=== PATIENT | female | born 1965 | race Caucasian/White ===

== ENCOUNTER 2019-12-20 17:04 | Outpatient (REF) | payer OTHER, SELFPAY ==
--- NOTE | 2019-12-20 | MM_ITS ---
EXAMINATION: MM SCREENING DIGITAL BREAST TOMOSYNTHESIS, BILATERAL CLINICAL INFORMATION: Screening. Asymptomatic. The lifetime risk of breast cancer based on the Tyrer-Cuzick Model is 8.0%. COMPARISON: Mammography: None TECHNIQUE: Digital breast tomosynthesis is performed in both the craniocaudal and mediolateral oblique views along with computer-aided detection (CAD). Synthesized 2D images are generated from the tomosynthesis. FINDINGS: The breasts are heterogeneously dense, which may obscure small masses (ACR BI-RADS breast composition Category c). There are no significant masses, abnormal calcifications, or other abnormalities. IMPRESSION: No evidence of malignancy ASSESSMENT: BI-RADS 1: Negative RECOMMENDATION: Routine annual mammography screening. This patient's information was entered into a reminder system with a target due date for their next mammogram.
== END 2019-12-20 17:05 | disposition home or self-care (01) ==
LOC: HO.MAMMO 17:04
PROVIDERS: PCP Internal Medicine; Visit Provider Internal Medicine
DX: Z12.31 Encounter for screening mammogram for malignant neoplasm of breast (principal)
CPT/HCPCS: 77063; 77067

== ENCOUNTER 2019-12-31 13:25 | Outpatient (REF) | payer OTHER, SELFPAY ==
--- NOTE | 2019-12-31 13:33 | XR_ITS ---
EXAMINATION: XR PELVIS CLINICAL INFORMATION: [Pain. COMPARISON: Left hip 10/02/2019 TECHNIQUE: AP view of the pelvis. FINDINGS: There is bilateral loss of joint space with [id number] apposition and subchondral cystic changes of right hip joint. There is minimal sclerosis along the right femoral head. Rest of the pelvis and SI joints are unremarkable. The soft tissues are normal. XR/XR pelvis 1-2V IMPRESSION: Severe right and [id number] left hip joint osteoarthritic changes. No visible acute fracture or dislocation.
== END 2019-12-31 13:26 | disposition home or self-care (01) ==
LOC: HO.XRAY 13:25
PROVIDERS: Visit Provider Orthopaedic Surgery
DX: M16.11 Unilateral primary osteoarthritis, right hip (principal)
CPT/HCPCS: 72170; 99204

== ENCOUNTER 2020-02-18 13:09 | Outpatient (REF) | payer OTHER, SELFPAY ==
--- NOTE | 2020-02-18 14:35 | ECG_ITS ---
Test Reason : PREOP Blood Pressure : / mmHG Vent. Rate : 067 BPM Atrial Rate : 067 BPM P-R Int : 156 ms QRS Dur : 080 ms QT Int : 414 ms P-R-T Axes : 072 015 041 degrees QTc Int : 437 ms Normal sinus rhythm Nonspecific ST and T wave abnormality Abnormal ECG No previous ECGs available Referred By: Myles Ledezma Electronically Signed By:Phil Garcia
[2020-02-18 14:54] LABS: Basophils Absolute Auto 0.1 X10*3/uL (0.0-0.2); Basophils Percent Auto 0.8 % (0-2); Eosinophils Absolute Auto 0.4 X10*3/uL (0.0-0.4); Eosinophils Percent Auto 5.6 % (0-4); Hematocrit 43.3 % (37-47); Hemoglobin 14.6 g/dl (12.0-16.0); Imm Gran Abs Auto 0.03 X10*3/uL (0.00-0.03); Imm Gran Pct Auto 0.5 % (0.0-0.4); Lymphocytes Absolute Auto 1.5 X10*3/uL (1.2-4.9); Lymphocytes Percent Auto 22.9 % (20-40); Mean Corpuscular HGB Conc 33.7 g/dl (31.0-35.0); Mean Corpuscular Hemoglobin 34.1 pg (27.0-33.0); Mean Corpuscular Volume 101.2 fL (80-98); Mean Platelet Volume 10.9 fL (9.4-12.3); Monocytes Absolute Auto 0.4 X10*3/uL (0.1-1.2); Monocytes Percent Auto 5.9 % (2-11); Neutrophils Absolute Auto 4.1 X10*3/uL (2.0-8.3); Neutrophils Percent Auto 64.3 % (45-73); Platelet Count 123 X10*3/uL (160-400); Red Blood Count 4.28 X10*6/uL (4.20-5.50); Red Cell Distribution Width 15.9 % (11.0-16.0); White Blood Count 6.4 X10*3/uL (4.8-10.8)
[2020-02-18 14:56] LABS: MANUAL DIFF FLAG NO
[2020-02-18 15:24] LABS: Anion Gap 13 (12-20); Blood Urea Nitrogen 9 mg/dL (9-16); Calcium 9.3 mg/dL (8.4-10.2); Carbon Dioxide 30 mmol/L (22-29); Chloride 97 mmol/L (96-108); Estimated Glomerular Filt Rate > 60; Glucose Random 92 mg/dL (60-115); Potassium 4.3 mmol/l (3.3-5.1); Sodium 136 mmol/L (135-145)
== END 2020-02-18 13:10 | disposition home or self-care (01) ==
LOC: HO.LAB 13:09
PROVIDERS: PCP Internal Medicine; Visit Provider Orthopaedic Surgery
DX: Z01.810 Encounter for preprocedural cardiovascular examination (principal)
CPT/HCPCS: 36415; 80048; 85025; 93005

== ENCOUNTER 2020-03-13 11:18 | Outpatient (REF) | payer OTHER, SELFPAY ==
--- NOTE | 2020-03-13 11:23 | XR_ITS ---
EXAMINATION: XR CHEST CLINICAL INFORMATION: Cough. COMPARISON: None TECHNIQUE: 2 views of the chest were obtained. FINDINGS: The lungs are well-expanded and clear. The heart size and pulmonary vascularity is normal. There is moderate spondylosis dorsal spine. No lytic process seen. XR/XR chest 2V IMPRESSION: Unremarkable chest exam.
== END 2020-03-13 11:19 | disposition home or self-care (01) ==
LOC: HO.XRAY 11:18
PROVIDERS: Visit Provider Physician Assistant
DX: Z01.818 Encounter for other preprocedural examination (principal); Z01.812 Encounter for preprocedural laboratory examination; R05 Cough; M16.11 Unilateral primary osteoarthritis, right hip
CPT/HCPCS: 71046; 99212

== ENCOUNTER 2020-03-18 | Outpatient (REF) | payer OTHER, SELFPAY ==
--- NOTE | 2020-03-13 09:38 | HO.ANESPROP2 ---
HPI - Anesthesia Eval Consult details Narrative: 54yo F for Right JASWANT Pending: CXR PCP sign off Rescheduled d/t COVID PMFSH Past Medical History Medical History Anxiety Back pain Cough History of panic attacks Nausea Osteoarthritis of right hip Smoker Family History Family History Father No problems noted. Mother No problems noted. Surgical History Surgical History Delivery by section History of Problems with Anesthesia: No (No h/o of GA) Social History Social History Alcohol intake: current Alcohol intake frequency: a few times a week Alcohol type: wine Smoking Status: Current every day smoker Tobacco Type: Cigarette Cigarettes Per Day: 12 Years Smoked: 43 Second Hand Smoke Exposure: Yes Current occupational status: unemployed Current occupation: Right Handed Narrative Narrative: No recent respiratory illness, reports abdominal pain 3 days ago. Resolved with gas x. No fevers, vomitting, or diarrhea. RINCON at baseline. No CP. Activity limited to pain. Meds Allergies Allergy/AdvReac Type Severity Reaction Status Date / Time naproxen [From Naprosyn] AdvReac Severe Nausea Verified 03/13/20 10:22 Home Medications Medication Instructions Recorded Confirmed Type omeprazole 1 cap PO QAM 03/13/20 03/13/20 History simethicone [Gas Relief 1 cap PO TID 03/13/20 03/13/20 History (simethicone)] Exam Exam Date and Time: March 13, 2020 0938 Pertinent Lab Results Pertinent Lab Results: Laboratory Tests 02/18/20 02/18/20 14:40 14:40 WBC 6.4 Hgb 14.6 Hct 43.3 Plt Count 123 L Sodium 136 Potassium 4.3 Chloride 97 Carbon Dioxide 30 H BUN 9 Creatinine 0.78 Narrative Narrative: EKG 02/18/20: NSR@67, Nonspec ST and T wave abn Airway Mallampati Class: II TM Dist: >3cm Neck ROM: Full Loose/Missing/Broken Teeth: Yes (#6 broken, multiple molars pulled) Heart: RRR, +M Lungs: Wheezes and coarse throughout Assessment and Plan Assessment Anesthesia Assessment: Anesthesia Plan Discussed, Smoking Cess. Discussed and PAT Visit
[2020-03-13 10:22] VITALS: BP 169/81; PULSE 72; RESP 16; O2SAT 96; BMI 27.6
[2020-03-13 12:50] LABS: MRSA Nasal PCR NEGATIVE (Negative); SA Nasal PCR NEGATIVE (Negative)
== END 2020-03-18 00:01 ==
LOC: HO.LAB
PROVIDERS: Physician Assistant; PCP Internal Medicine; Visit Provider Orthopaedic Surgery
DX: M16.11 Unilateral primary osteoarthritis, right hip (principal); F17.210 Nicotine dependence, cigarettes, uncomplicated
CPT/HCPCS: 86850; 86900; 86901; 87640; 87641

== ENCOUNTER 2020-07-23 16:14 | Inpatient (IN) | payer OTHER, SELFPAY ==
[2020-07-23] VITALS (7 sets, daily range): BP systolic 105–137; BP diastolic 68–86; PULSE 77–91; RESP 12–22; TEMP 36.6–36.9; O2SAT 94–98; BMI 24.0
--- NOTE | ~2020-07-23 | XR_ITS ---
EXAMINATION: XR CHEST CLINICAL INFORMATION: Weakness COMPARISON: Previous chest x-ray March 2020 TECHNIQUE: 2 views of the chest were obtained. FINDINGS: The cardiac and mediastinal contours are stable. The thoracic aorta is slightly tortuous. The lungs are clear. There is no pleural effusion or pneumothorax. There are degenerative changes of the spine. XR/XR chest 2V IMPRESSION: No evidence for acute disease in the chest.
--- NOTE | ~2020-07-23 | MR_ITS ---
EXAMINATION: MRI ABDOMEN WITH AND WITHOUT CONTRAST CLINICAL INFORMATION: Pancreatic cyst COMPARISON: 07/23/2020 CT scan TECHNIQUE: Multiple routine MRI sequences through the abdomen were obtained on a high-field 1.5Tesla MRI. Pre-and postcontrast images with 6.5 mL of Gadavist intravenous contrast were obtained. This included a dynamic contrast-enhanced technique. FINDINGS: Visualized lung bases demonstrate minimal dependent atelectasis. Liver has diffuse fatty infiltration with focal regions of fatty sparing adjacent to the gallbladder fossa and along the lateral right lobe the liver. No suspicious focal hepatic lesion nor biliary ductal dilatation. The gallbladder is unremarkable with no evidence of gallstones, gallbladder wall thickening, or pericholecystic inflammatory changes. Specific attention was given to the pancreas. The pancreas demonstrates mild diffusely decreased expected T1 signal. I do not appreciate any pancreatic ductal dilatation or peripancreatic inflammatory changes/fluid. In the anterior pancreatic tail, there is a nonenhancing T2 bright 0.9 cm pancreatic parenchymal cysts. This is in close proximity to the adjacent duct. Pancreatic duct is nondilated. Negative spleen. Negative adrenals. Cortical scarring in the medial upper pole of the left kidney but otherwise the kidneys are grossly unremarkable Multilevel degenerative changes in the spine MR/MR abdomen wo/w con IMPRESSION: Subcentimeter T2 bright nonenhancing cyst in the pancreatic tail. This is too small to characterize further. I do not appreciate any obvious solid component, nodularity, or enhancement. There are no suspicious or worrisome features. The adjacent pancreatic duct is grossly unremarkable. Follow-up MRI in 2-4 years would be recommended to ensure stability of this subcentimeter pancreatic tail cyst
--- NOTE | ~2020-07-23 | CT_ITS ---
EXAMINATION: CT ABDOMEN AND PELVIS WITHOUT AND WITH CONTRAST CLINICAL INFORMATION: Elevated LFTs. Weakness COMPARISON: None TECHNIQUE: Multidetector volumetric imaging was performed of the abdomen and pelvis before and after the IV administration of 85 mL of Omnipaque 300 intravenous contrast. Sagittal and coronal reformatted images were obtained on the technologist's workstation. This CT examination was performed using dose optimization techniques as appropriate, variously including the following: *Automated exposure control *Adjustment of mA and/or kV according to patient size (this includes techniques or standardized protocols for targeted exams where dose is matched to indication/reason for exam; i.e. extremities or head) *Use of iterative reconstruction technique DLP: 1552 mGy-cm FINDINGS: LUNG BASES: The visualized lung bases are unremarkable. LIVER, GALLBLADDER, AND BILIARY TREE: There is significant diffuse fatty infiltration liver with regions of focal fatty sparing adjacent to gallbladder fossa. I do not appreciate any suspicious arterial phase enhancing hepatic lesions or obvious washout of contrast on later phases. The gallbladder is unremarkable with no evidence of radiopaque gallstones, gallbladder wall thickening, or obvious pericholecystic inflammatory changes. PANCREAS: Atrophic. Subtle 0.8 cm cystic change in the anterior aspect of the pancreatic tail. No obvious pancreatic atrophy or pancreatic ductal dilatation. SPLEEN: Unremarkable ADRENAL GLANDS: Unremarkable KIDNEYS AND URETERS: Chronic scarring to the superior aspect of the left kidney. No hydronephrosis or hydroureter. No perinephric stranding BLADDER: Unremarkable GASTROINTESTINAL TRACT: Extensive colonic diverticulosis more so in the sigmoid colon. I do not appreciate any colonic wall thickening or pericolonic inflammatory change. No obstruction noted. Unremarkable pancreas difficult to separate from adjacent small bowel. Small bowel itself is unremarkable ABDOMINAL WALL: No significant hernia is appreciated. LYMPH NODES: Normal VASCULAR: Mild vascular calcification within the aorta iliac system PELVIC VISCERA: Unremarkable OSSEOUS STRUCTURES: Marked degenerative changes in the right hip. Milder degenerative changes in the spine CT/CT abdomen pelvis wo/w con IMPRESSION: Diffuse fatty infiltration of the liver without focal hepatic lesion nor biliary ductal dilatation. 0.8 cm cystic change in the anterior pancreatic tail difficult to define further on this study. Correlation with dedicated dynamic liver MRI/MRCP would be recommended to evaluate further. Extensive diverticulosis but no evidence for diverticulitis.
--- NOTE | ~2020-07-23 | CT_ITS ---
EXAMINATION: CT HEAD WITHOUT CONTRAST CLINICAL INFORMATION: Generalized weakness COMPARISON: None TECHNIQUE: Contiguous axial imaging was performed from the skull base to vertex without intravenous administration of contrast. This CT examination was performed using dose optimization techniques as appropriate, variously including the following: *Automated exposure control *Adjustment of mA and/or kV according to patient size (this includes techniques or standardized protocols for targeted exams where dose is matched to indication/reason for exam; i.e. extremities or head) *Use of iterative reconstruction technique DLP: 606 mGy-cm FINDINGS: There is no evidence of acute intracranial hemorrhage or territorial infarction. No abnormal mass effect or midline shift is seen. Awan to white matter differentiation is well preserved. No extra-axial fluid collections are identified. The ventricles are normal in size. There is no abnormal attenuation within the brain parenchyma. The osseous structures and soft tissues are normal. The mastoid air cells and visualized portions of the paranasal sinuses are well aerated. CT/CT head/brain wo con IMPRESSION: No acute intracranial pathology.
--- NOTE | 2020-07-23 16:40 | ECG_ITS ---
Test Reason : WEAKNESS Blood Pressure : / mmHG Vent. Rate : 077 BPM Atrial Rate : 077 BPM P-R Int : 144 ms QRS Dur : 078 ms QT Int : 470 ms P-R-T Axes : 073 012 103 degrees QTc Int : 531 ms Sinus rhythm with Premature atrial complexes ST & T wave abnormality, consider anterior ischemia Abnormal ECG When compared with ECG of 18-FEB-2020 14:45, Premature atrial complexes are now Present Nonspecific T wave abnormality now evident in Inferior leads T wave inversion now evident in Anterior leads QT has lengthened Referred By: Maura Conte Electronically Signed By:HORACE GIBBS MD
--- NOTE | 2020-07-23 16:54 | ED.WEAKNESS ---
HPI - Weakness General Chief complaint: Weakness Stated complaint: GENERALIZED WEAKNESS Time Seen by Provider: 07/23/20 16:39 Source: EMS Mode of arrival: EMS Limitations: no limitations History of Present Illness HPI Narrative: 54-year-old female with a past medical history of long standing tobacco use, anxiety, osteoarthritis here with complaints of generalized weakness. For the last 3 weeks she has had generalized weakness but does feel like her lower legs feel weak when she is walking like they are going to give out on her. This is worsened with any movement. She does have some dizziness with position changes which she describes as feeling lightheaded. She is also complaining of some intermittent numbness in both hands which she is had for longer. No numbness in the legs. No bowel or bladder incontinence. Multiple falls at home due to weakness despite using a walker. Mild shortness of breath and cough which patient tells me is chronic and unchanged from previous. No chest pain, fevers, chills, abdominal pain, vomiting, diarrhea, headache. Smokes cigarettes every day. Drinks alcohol every other day 4-5 drinks. No additional substance use. Per nursing on arrival room air saturation 88% improved with 2 L of oxygen Related Data Home Medications Medication Instructions Recorded Confirmed lorazepam 1 mg PO BID PRN 07/23/20 07/23/20 Previous Rx's Medication Instructions Recorded cane #1 ea 12/31/19 Allergies Allergy/AdvReac Type Severity Reaction Status Date / Time naproxen [From Naprosyn] AdvReac Severe Nausea Verified 03/13/20 10:22 Review of Systems Review of Systems: Yes all other systems are reviewed and are negative Constitutional: Constitutional: Reports no additional constitutional complaints, Denies body ache(s), Denies chills, Denies fever(s), Denies headache(s) and Reports weakness Eyes: Eyes: Reports no additional eye complaints and Denies change in vision ENT: Reports system reviewed and no additional complaints, except as documented, Reports dizziness (w/ position changes), Denies headache(s), Denies nasal congestion, Denies nasal discharge and Denies neck pain Cardiovascular: Cardiovascular: Reports no additional cardiovascular complaints, Denies chest pain, Denies leg edema and Denies dyspnea Respiratory: Respiratory: Reports no additional respiratory complaints, Denies cough and Denies dyspnea Gastrointestinal: Gastrointestinal: Reports no additional gastrointestinal complaints, Denies abdominal pain, Denies diarrhea, Denies nausea and Denies vomiting Genitourinary: Genitourinary: Reports no additional female genitourinary complaints and Denies urinary incontinence Musculoskeletal: Musculoskeletal: Reports no additional musculoskeletal complaints, Denies back pain, Denies arthralgias, Denies joint swelling, Denies neck pain, Reports numbness and Denies tingling Integumentary/Breasts: Skin/Breast: Reports system reviewed and no additional complaints, except as docu and Denies rash Neurologic: Reports system reviewed and no additional complaints, except as documented, Denies Abnormal speech present, Reports dizziness (w/ position changes), Denies headache(s), Reports numbness, Denies tingling and Reports weakness PMFSH Past Medical History Attestation statement: The following information was validated with the patient. Source: old records reviewed and nursing notes reviewed Medical History Anxiety Back pain Cough History of panic attacks Nausea Osteoarthritis of right hip Smoker Surgical History Delivery by section Family History Family History Father No problems noted. Mother No problems noted. Social History Social History Alcohol intake: never Smoking Status: Current every day smoker Tobacco Type: Cigarette Cigarettes Per Day: 12 Years Smoked: 43 Second Hand Smoke Exposure: Yes Use of substances other than those prescribed or required for medical reasons: No Advance Directives: No Advance Directives Information Provided: Yes Patient : No Current occupational status: unemployed Current occupation: Right Handed Physical Exam Vital Signs: Vital Signs: Last Vital Signs Temp 97.9 F 07/23/20 17:57 Pulse 84 07/23/20 20:00 Resp 12 07/23/20 20:00 BP 113/73 07/23/20 20:00 Pulse Ox 96 07/23/20 20:00 Body Mass Index 24.0 Const: Other: Thin-appearing, poor hygiene General: cooperative Orientation/consciousness: patient oriented x3 Limitations: no limitations HENMT: Head: Yes normal to inspection Ears: hearing grossly normal bilaterally General nose exam: Normal external nose present Face and sinus: Yes normal facial exam Mouth: Normal oral and palatal mucosa present Throat: Yes posterior oropharynx normal Eyes: General: appearance normal, both eyes and all related structures Visual Butcher: normal visual butcher by confrontation Alignment and Position: alignment normal Periorbital: periorbital findings normal Eyelids: Yes eyelids normal Conjunctivae: conjunctivae normal Sclerae: sclerae normal Corneas: corneas normal Pupils: Equal, round and reactive pupils present Neck: Neck: Yes normal visual inspection Chest: Chest palpation & inspection: normal inspection of the chest Resp: Other: Inspiratory and expiratory wheezing throughout. Effort & Inspection: normal respiratory effort Cardio: Rate: regular rate Rhythm: regular rhythm Peripheral pulses: Peripheral pulses 2+ throughout GI: Inspection: Yes normal to inspection Palpation (GI): Soft to palpation and nontender Auscultation: normal bowel sounds Back/Spine/Pelvis: Thoracic/Lumbar Spine: thoracic and lumbar spine normal to inspection Skin: General skin exam: no rashes or lesions noted Neuro: Other: LE bilateral 3/5 strength General: patient oriented x3, no focal motor deficits, normal sensation to monofilament and Unable to assess gait Cranial nerves: Yes Equal, round and reactive pupils present, Yes Bilaterally intact EOM present, Yes Nystagmus not present, Yes Normal facial strength present and Yes Midline tongue present Cognition (Neuro): normal cognition Speech: No Abnormal speech present Gait exam (Neuro): Unable to assess gait Sensory Exam: Normal double simultaneous stimulation for sensation Deep tendon reflexes (DTR's): Right patellar reflex intensity grade: 2+, Left patellar reflex intensity grade: 2+, Right ankle reflex intensity grade: 2+ and Left ankle reflex intensity grade: 2+ Coordination: [id number] test normal Extrem: General: Yes normal to inspection, Yes no pedal edema and Yes no calf tenderness Course Course Course Narrative: 54-year-old female here with complaints of generalized weakness but does feel like her legs are more weak than her entire body, feels like they are going to give out on her for the last 3 weeks associated with dizziness with position changes, numbness in the hands which seems to be going on for longer, chronic shortness of breath and cough with noted hypoxia on arrival of 88%. Patient denies history of COPD but has a longstanding history of tobacco use. She has inspiratory and expiratory wheezing throughout. Likely undiagnosed. Will need labs, UA, CT head, chest x-ray, EKG, COVID screen, DuoNeb, Solu-Medrol. 1914-labs show an elevated lactic acid which is from dehydration and not infection. Also show hypokalemia, hypomagnesemia, hypochloremia, elevated lfts. Replacement ordered. Add on CT A/P. 2119-UA c/w with UTI. At this time infection is suspected. Antibiotics ordered. 2139-CT shows a negative head CT. The abdomen shows diffuse fatty infiltration of the liver with no lesion or biliary duct dilation. There is some cystic changes in the anterior pancreatic tail difficult to define further correlation with dedicated MRI versus MRCP recommend did. No abdominal pain on exam. Lipase added on and can follow. EKG shows ST depressions in leads V1 to V3. Initial troponin 14.5. Repeat troponin pending. No chest pain. ?secondary to multiple electrolyte abnormalities. . 2199-Troponin x [address] delta[address] Patient [address] to Dr Espana who accepted admission. MDM - Weakness MDM Narrative Medical decision making narrative: Less likely GB with no progressive weakness or paresthesias. Less likely MS with no overt neurological deficits. Consider COPD versus pneumonia versus viral illness Consider electrolyte abnormality, anemia, orthostatic hypotension, UTI Medical Records Attestation: I reviewed the patient's medical records. Lab Data Attestation: I reviewed the patient's lab results. Result diagrams: 07/23/20 17:43 07/23/20 17:43 Labs: Lab Results 07/23/20 07/23/20 07/23/20 Range/Units 17:43 17:43 17:43 WBC 7.6 (4.8-10.8) X10*3/uL RBC 3.21 L D (4.20-5.50) X10*6/uL Hgb 12.8 (12.0-16.0) g/dl Hct 35.2 L (37-47) % MCV 109.7 H (80-98) fL MCH 39.9 H (27.0-33.0) pg MCHC 36.4 H (31.0-35.0) g/dl RDW 15.1 (11.0-16.0) % Plt Count 233 D (160-400) X10*3/uL MPV 11.1 (9.4-12.3) fL Immature Gran % (Auto) 0.3 (0.0-0.4) % Neut % (Auto) 71.4 (45-73) % Lymph % (Auto) 19.4 L (20-40) % [place] % (Auto) 7.0 (2-11) % Eos % (Auto) 1.1 (0-4) % Baso % (Auto) 0.8 (0-2) % Lymph # (Auto) 1.5 (1.2-4.9) X10*3/uL [place] # (Auto) 0.5 (0.1-1.2) X10*3/uL Eos # (Auto) 0.1 (0.0-0.4) X10*3/uL Baso # (Auto) 0.1 (0.0-0.2) X10*3/uL Abs Immat Gran (auto) 0.02 (0.00-0.03) X10*3/uL Absolute Neuts (auto) 5.4 (2.0-8.3) X10*3/uL Absolute Nucleated RBC 0.000 (0.0-0.012) X10*3/uL Nucleated RBC % (auto) 0.0 (0.0-0.2) /100WBC PT 14.8 H (10.8-13.0) SEC INR 1.2 H (0.9-1.1) Sodium (135-145) mmol/L Potassium (3.3-5.1) mmol/L Chloride (96-108) mmol/L Carbon Dioxide (22-29) mmol/L Anion Gap (12-20) BUN (9-16) mg/dL Creatinine (0.5-1.4) mg/dL Estim Creat Clear Calc Estimated GFR Random Glucose (60-115) mg/dL Lactic Acid (0.5-2.0) mmol/L Lactic Acid Fup @ 2Hr (0.5-2.0) mmol/L Calcium (8.4-10.2) mg/dL Magnesium (1.6-2.6) mg/dL Total Bilirubin (0.0-1.0) mg/dL Direct Bilirubin (0.0-0.5) mg/dL AST (5-31) U/L ALT (0-31) U/L Alkaline Phosphatase (39-117) U/L Total Creatine Kinase (26-140) U/L Troponin I High Sens (<3.5-17.0) ng/L Total Protein (6.5-8.0) g/dL Albumin (3.5-5.0) g/dL Urine Color Urine Appearance Urine pH (5.0-8.0) Ur Specific [place] (1.005-1.025) Urine Protein (NEG-TRACE) MG/DL Urine Glucose (UA) (NEG) MG/DL Urine Ketones (NEG) MG/DL Urine Blood (NEG) Urine Nitrite (NEG) Ur Leukocyte Esterase (NEG) Urine RBC (0) /HPF Urine WBC (0-4) /HPF Ur Squamous Epith Cells /LPF Urine Bacteria /LPF Granular Casts /LPF Urine Opiates Screen (Not Detect) Ur Barbiturates Screen (Not Detect) Ur Phencyclidine Scrn (Not Detect) Ur Amphetamines Screen (Not Detect) U Benzodiazepines Scrn (Not Detect) Urine Cocaine Screen (Not Detect) U Marijuana (THC) Screen (Not Detect) Ethyl Alcohol mg/dL COVID-19 ([facility]) Negative (Negative) COVID-19 Clin Com See Note 07/23/20 07/23/20 07/23/20 Range/Units 17:43 17:43 17:43 WBC (4.8-10.8) X10*3/uL RBC (4.20-5.50) X10*6/uL Hgb (12.0-16.0) g/dl Hct (37-47) % MCV (80-98) fL MCH (27.0-33.0) pg MCHC (31.0-35.0) g/dl RDW (11.0-16.0) % Plt Count (160-400) X10*3/uL MPV (9.4-12.3) fL Immature Gran % (Auto) (0.0-0.4) % Neut % (Auto) (45-73) % Lymph % (Auto) (20-40) % [place] % (Auto) (2-11) % Eos % (Auto) (0-4) % Baso % (Auto) (0-2) % Lymph # (Auto) (1.2-4.9) X10*3/uL [place] # (Auto) (0.1-1.2) X10*3/uL Eos # (Auto) (0.0-0.4) X10*3/uL Baso # (Auto) (0.0-0.2) X10*3/uL Abs Immat Gran (auto) (0.00-0.03) X10*3/uL Absolute Neuts (auto) (2.0-8.3) X10*3/uL Absolute Nucleated RBC (0.0-0.012) X10*3/uL Nucleated RBC % (auto) (0.0-0.2) /100WBC PT (10.8-13.0) SEC INR (0.9-1.1) Sodium 139 (135-145) mmol/L Potassium 2.3 L* (3.3-5.1) mmol/L Chloride 86 L (96-108) mmol/L Carbon Dioxide 39 H (22-29) mmol/L Anion Gap 16 (12-20) BUN 8 L (9-16) mg/dL Creatinine 0.63 (0.5-1.4) mg/dL Estim Creat Clear Calc 85.4 Estimated GFR > 60 Random Glucose 106 (60-115) mg/dL Lactic Acid 3.3 H* (0.5-2.0) mmol/L Lactic Acid Fup @ 2Hr (0.5-2.0) mmol/L Calcium 8.1 L D (8.4-10.2) mg/dL Magnesium 1.3 L* (1.6-2.6) mg/dL Total Bilirubin 1.7 H (0.0-1.0) mg/dL Direct Bilirubin 1.1 H (0.0-0.5) mg/dL AST 65 H (5-31) U/L ALT 29 (0-31) U/L Alkaline Phosphatase 118 H (39-117) U/L Total Creatine Kinase (26-140) U/L Troponin I High Sens 14.5 (<3.5-17.0) ng/L Total Protein 5.5 L (6.5-8.0) g/dL Albumin 3.1 L (3.5-5.0) g/dL Urine Color Urine Appearance Urine pH (5.0-8.0) Ur Specific [place] (1.005-1.025) Urine Protein (NEG-TRACE) MG/DL Urine Glucose (UA) (NEG) MG/DL Urine Ketones (NEG) MG/DL Urine Blood (NEG) Urine Nitrite (NEG) Ur Leukocyte Esterase (NEG) Urine RBC (0) /HPF Urine WBC (0-4) /HPF Ur Squamous Epith Cells /LPF Urine Bacteria /LPF Granular Casts /LPF Urine Opiates Screen (Not Detect) Ur Barbiturates Screen (Not Detect) Ur Phencyclidine Scrn (Not Detect) Ur Amphetamines Screen (Not Detect) U Benzodiazepines Scrn (Not Detect) Urine Cocaine Screen (Not Detect) U Marijuana (THC) Screen (Not Detect) Ethyl Alcohol mg/dL COVID-19 ([facility]) (Negative) COVID-19 Clin Com 07/23/20 07/23/20 07/23/20 Range/Units 17:43 20:53 20:53 WBC (4.8-10.8) X10*3/uL RBC (4.20-5.50) X10*6/uL Hgb (12.0-16.0) g/dl Hct (37-47) % MCV (80-98) fL MCH (27.0-33.0) pg MCHC (31.0-35.0) g/dl RDW (11.0-16.0) % Plt Count (160-400) X10*3/uL MPV (9.4-12.3) fL Immature Gran % (Auto) (0.0-0.4) % Neut % (Auto) (45-73) % Lymph % (Auto) (20-40) % [place] % (Auto) (2-11) % Eos % (Auto) (0-4) % Baso % (Auto) (0-2) % Lymph # (Auto) (1.2-4.9) X10*3/uL [place] # (Auto) (0.1-1.2) X10*3/uL Eos # (Auto) (0.0-0.4) X10*3/uL Baso # (Auto) (0.0-0.2) X10*3/uL Abs Immat Gran (auto) (0.00-0.03) X10*3/uL Absolute Neuts (auto) (2.0-8.3) X10*3/uL Absolute Nucleated RBC (0.0-0.012) X10*3/uL Nucleated RBC % (auto) (0.0-0.2) /100WBC PT (10.8-13.0) SEC INR (0.9-1.1) Sodium (135-145) mmol/L Potassium (3.3-5.1) mmol/L Chloride (96-108) mmol/L Carbon Dioxide (22-29) mmol/L Anion Gap (12-20) BUN (9-16) mg/dL Creatinine (0.5-1.4) mg/dL Estim Creat Clear Calc Estimated GFR Random Glucose (60-115) mg/dL Lactic Acid (0.5-2.0) mmol/L Lactic Acid Fup @ 2Hr (0.5-2.0) mmol/L Calcium (8.4-10.2) mg/dL Magnesium (1.6-2.6) mg/dL Total Bilirubin (0.0-1.0) mg/dL Direct Bilirubin (0.0-0.5) mg/dL AST (5-31) U/L ALT (0-31) U/L Alkaline Phosphatase (39-117) U/L Total Creatine Kinase (26-140) U/L Troponin I High Sens (<3.5-17.0) ng/L Total Protein (6.5-8.0) g/dL Albumin (3.5-5.0) g/dL Urine Color MILA Urine Appearance CLOUDY Urine pH 6.0 (5.0-8.0) Ur Specific [place] 1.025 (1.005-1.025) Urine Protein 1+ H (NEG-TRACE) MG/DL Urine Glucose (UA) NEG (NEG) MG/DL Urine Ketones 5 (NEG) MG/DL Urine Blood NEG (NEG) Urine Nitrite POS H (NEG) Ur Leukocyte Esterase TRACE H (NEG) Urine RBC 1-4 (0) /HPF Urine WBC 5-9 H (0-4) /HPF Ur Squamous Epith Cells 1+ /LPF Urine Bacteria 4+ /LPF Granular Casts 1-4 /LPF Urine Opiates Screen Not Detected (Not Detect) Ur Barbiturates Screen Not Detected (Not Detect) Ur Phencyclidine Scrn Not Detected (Not Detect) Ur Amphetamines Screen Not Detected (Not Detect) U Benzodiazepines Scrn Not Detected (Not Detect) Urine Cocaine Screen Not Detected (Not Detect) U Marijuana (THC) Screen Not Detected (Not Detect) Ethyl Alcohol < 10 mg/dL COVID-19 ([facility]) (Negative) COVID-19 Clin Com 07/23/20 07/23/20 07/23/20 Range/Units 21:00 21:19 21:19 WBC (4.8-10.8) X10*3/uL RBC (4.20-5.50) X10*6/uL Hgb (12.0-16.0) g/dl Hct (37-47) % MCV (80-98) fL MCH (27.0-33.0) pg MCHC (31.0-35.0) g/dl RDW (11.0-16.0) % Plt Count (160-400) X10*3/uL MPV (9.4-12.3) fL Immature Gran % (Auto) (0.0-0.4) % Neut % (Auto) (45-73) % Lymph % (Auto) (20-40) % [place] % (Auto) (2-11) % Eos % (Auto) (0-4) % Baso % (Auto) (0-2) % Lymph # (Auto) (1.2-4.9) X10*3/uL [place] # (Auto) (0.1-1.2) X10*3/uL Eos # (Auto) (0.0-0.4) X10*3/uL Baso # (Auto) (0.0-0.2) X10*3/uL Abs Immat Gran (auto) (0.00-0.03) X10*3/uL Absolute Neuts (auto) (2.0-8.3) X10*3/uL Absolute Nucleated RBC (0.0-0.012) X10*3/uL Nucleated RBC % (auto) (0.0-0.2) /100WBC PT (10.8-13.0) SEC INR (0.9-1.1) Sodium (135-145) mmol/L Potassium (3.3-5.1) mmol/L Chloride (96-108) mmol/L Carbon Dioxide (22-29) mmol/L Anion Gap (12-20) BUN (9-16) mg/dL Creatinine (0.5-1.4) mg/dL Estim Creat Clear Calc Estimated GFR Random Glucose (60-115) mg/dL Lactic Acid (0.5-2.0) mmol/L Lactic Acid Fup @ 2Hr 2.1 H* (0.5-2.0) mmol/L Calcium (8.4-10.2) mg/dL Magnesium (1.6-2.6) mg/dL Total Bilirubin (0.0-1.0) mg/dL Direct Bilirubin (0.0-0.5) mg/dL AST (5-31) U/L ALT (0-31) U/L Alkaline Phosphatase (39-117) U/L Total Creatine Kinase 93 (26-140) U/L Troponin I High Sens 13.7 (<3.5-17.0) ng/L Total Protein (6.5-8.0) g/dL Albumin (3.5-5.0) g/dL Urine Color Urine Appearance Urine pH (5.0-8.0) Ur Specific [place] (1.005-1.025) Urine Protein (NEG-TRACE) MG/DL Urine Glucose (UA) (NEG) MG/DL Urine Ketones (NEG) MG/DL Urine Blood (NEG) Urine Nitrite (NEG) Ur Leukocyte Esterase (NEG) Urine RBC (0) /HPF Urine WBC (0-4) /HPF Ur Squamous Epith Cells /LPF Urine Bacteria /LPF Granular Casts /LPF Urine Opiates Screen (Not Detect) Ur Barbiturates Screen (Not Detect) Ur Phencyclidine Scrn (Not Detect) Ur Amphetamines Screen (Not Detect) U Benzodiazepines Scrn (Not Detect) Urine Cocaine Screen (Not Detect) U Marijuana (THC) Screen (Not Detect) Ethyl Alcohol mg/dL COVID-19 ([facility]) (Negative) COVID-19 Clin Com Imaging Data CT scan - head: Attestation: I personally reviewed and interpreted this imaging study as follows: Radiologist's impression: [address] [id number] Scan ReportSigned Patient: Darren Corbin#: [id number]: 1965Acct:[id number]/Sex: 54 / FADM Date: 07/23/20Loc: [facility] Dr: Ordering Physician: JENY TURCIOS NP Date of Service: 07/23/20 Procedure(s): CT head/brain wo con Accession Number(s): [id number] cc: JENY TURCIOS NP~ EXAMINATION: CT HEAD WITHOUT CONTRAST CLINICAL INFORMATION: Generalized weakness COMPARISON: None TECHNIQUE: Contiguous axial imaging was performed from the skull base to vertex without intravenous administration of contrast. This CT examination was performed using dose optimization techniques as appropriate, variously including the following: *Automated exposure control *Adjustment of mA and/or kV according to patient size (this includes techniques or standardized protocols for targeted exams where dose is matched to indication/reason for exam; i.e. extremities or head) *Use of iterative reconstruction technique DLP: 606 mGy-cm FINDINGS: There is no evidence of acute intracranial hemorrhage or territorial infarction. No abnormal mass effect or midline shift is seen. Awan to white matter differentiation is well preserved. No extra-axial fluid collections are identified. The ventricles are normal in size. There is no abnormal attenuation within the brain parenchyma. The osseous structures and soft tissues are normal. The mastoid air cells and visualized portions of the paranasal sinuses are well aerated. CT/CT head/brain wo con IMPRESSION: No acute intracranial pathology. CT scan - abdomen: Attestation: I personally reviewed and interpreted this imaging study as follows: Radiologist's impression: EXAMINATION: CT ABDOMEN AND PELVIS WITHOUT AND WITH CONTRAST CLINICAL INFORMATION: Elevated LFTs. Weakness COMPARISON: None TECHNIQUE: Multidetector volumetric imaging was performed of the abdomen and pelvis before and after the IV administration of 85 mL of Omnipaque 300 intravenous contrast. Sagittal and coronal reformatted images were obtained on the technologist's workstation. This CT examination was performed using dose optimization techniques as appropriate, variously including the following: *Automated exposure control *Adjustment of mA and/or kV according to patient size (this includes techniques or standardized protocols for targeted exams where dose is matched to indication/reason for exam; i.e. extremities or head) *Use of iterative reconstruction technique DLP: 1552 mGy-cm FINDINGS: LUNG BASES: The visualized lung bases are unremarkable. LIVER, GALLBLADDER, AND BILIARY TREE: There is significant diffuse fatty infiltration liver with regions of focal fatty sparing adjacent to gallbladder fossa. I do not appreciate any suspicious arterial phase enhancing hepatic lesions or obvious washout of contrast on later phases. The gallbladder is unremarkable with no evidence of radiopaque gallstones, gallbladder wall thickening, or obvious pericholecystic inflammatory changes. PANCREAS: Atrophic. Subtle 0.8 cm cystic change in the anterior aspect of the pancreatic tail. No obvious pancreatic atrophy or pancreatic ductal dilatation. SPLEEN: Unremarkable ADRENAL GLANDS: Unremarkable KIDNEYS AND URETERS: Chronic scarring to the superior aspect of the left kidney. No hydronephrosis or hydroureter. No perinephric stranding BLADDER: Unremarkable GASTROINTESTINAL TRACT: Extensive colonic diverticulosis more so in the sigmoid colon. I do not appreciate any colonic wall thickening or pericolonic inflammatory change. No obstruction noted. Unremarkable pancreas difficult to separate from adjacent small bowel. Small bowel itself is unremarkable ABDOMINAL WALL: No significant hernia is appreciated. LYMPH NODES: Normal VASCULAR: Mild vascular calcification within the aorta iliac system PELVIC VISCERA: Unremarkable OSSEOUS STRUCTURES: Marked degenerative changes in the right hip. Milder degenerative changes in the spine CT/CT abdomen pelvis wo/w con IMPRESSION: Diffuse fatty infiltration of the liver without focal hepatic lesion nor biliary ductal dilatation. 0.8 cm cystic change in the anterior pancreatic tail difficult to define further on this study. Correlation with dedicated dynamic liver MRI/MRCP would be recommended to evaluate further. Extensive diverticulosis but no evidence for diverticulitis. ECG Data Attestation: I personally reviewed and interpreted this ECG as follows: ECG interpretation date: 07/23/20 ECG interpretation time: 21:41 Interpretation: Sinus rhythm with PACs with a rate of 77. Normal [place], normal QRS QTC is 531. ST depressions in leads V1 through V3 which appear new when compared to previous EKG. Discharge Plan Discharge Clinical Impression: UTI (urinary tract infection), Acute hypokalemia, Hypomagnesemia, Hypochloremia, Elevated lactic acid level, Elevated LFTs, Weakness, Acute electrocardiogram changes, Hypoxia Patient Disposition: Admitted As Inpatient
[2020-07-23 17:58] LABS: MANUAL DIFF FLAG NO
[2020-07-23 18:09] LABS: INTERNATIONAL NORM RATIO 1.2 (0.9-1.1); Prothrombin Time 14.8 SEC (10.8-13.0)
[2020-07-23 18:19] LABS: Basophils Absolute Auto 0.1 X10*3/uL (0.0-0.2); Basophils Percent Auto 0.8 % (0-2); COVID-19 Test Negative (Negative); Eosinophils Absolute Auto 0.1 X10*3/uL (0.0-0.4); Eosinophils Percent Auto 1.1 % (0-4); Hematocrit 35.2 % (37-47); Hemoglobin 12.8 g/dl (12.0-16.0); Imm Gran Abs Auto 0.02 X10*3/uL (0.00-0.03); Imm Gran Pct Auto 0.3 % (0.0-0.4); Lymphocytes Absolute Auto 1.5 X10*3/uL (1.2-4.9); Lymphocytes Percent Auto 19.4 % (20-40); Mean Corpuscular HGB Conc 36.4 g/dl (31.0-35.0); Mean Corpuscular Hemoglobin 39.9 pg (27.0-33.0); Mean Corpuscular Volume 109.7 fL (80-98); Mean Platelet Volume 11.1 fL (9.4-12.3); Monocytes Absolute Auto 0.5 X10*3/uL (0.1-1.2); Neutrophils Absolute Auto 5.4 X10*3/uL (2.0-8.3); Neutrophils Percent Auto 71.4 % (45-73); Platelet Count 233 X10*3/uL (160-400); Red Blood Count 3.21 X10*6/uL (4.20-5.50); Red Cell Distribution Width 15.1 % (11.0-16.0); White Blood Count 7.6 X10*3/uL (4.8-10.8)
[2020-07-23 18:26] LABS: Ethanol < 10 mg/dL
[2020-07-23] MEDS: Albuterol/Iprat 2.5/0.5MG 3 ML AMPUL.NEB INHALE (18:30)
[2020-07-23 18:33] LABS: Lactic Acid 3.3 mmol/L (0.5-2.0)
[2020-07-23 18:35] LABS: Troponin-I High Sensitivity 14.5 ng/L (<3.5-17.0)
[2020-07-23] MEDS: methylPREDNISolone Sod Succ 125 MG/2 ML VIAL IVPUSH (18:59)
[2020-07-23] MEDS: 0.9 % Sodium Chloride 1,000 ML 999 ML IV (18:59)
[2020-07-23 19:11] LABS: Alanine Aminotransferase 29 U/L (0-31); Albumin Level 3.1 g/dL (3.5-5.0); Alkaline Phosphatase 118 U/L (39-117); Anion Gap 16 (12-20); Aspartate Amino Transferase 65 U/L (5-31); Bilirubin Direct 1.1 mg/dL (0.0-0.5); Bilirubin Total 1.7 mg/dL (0.0-1.0); Blood Urea Nitrogen 8 mg/dL (9-16); Calcium 8.1 mg/dL (8.4-10.2); Carbon Dioxide 39 mmol/L (22-29); Chloride 86 mmol/L (96-108); Creatinine Clr Calc Pharmacy 85.4; Estimated Glomerular Filt Rate > 60; Glucose Random 106 mg/dL (60-115); Magnesium 1.3 mg/dL (1.6-2.6); Potassium 2.3 mmol/L (3.3-5.1); Sodium 139 mmol/L (135-145); Total Protein 5.5 g/dL (6.5-8.0)
[2020-07-23 19:56] LABS: Reflex Lactate? Lactic Acid Added
[2020-07-23] MEDS: Potassium Chloride/H20 10 MEQ/100 ML PIGGYBACK 100 MEQ IV ×2 (20:03→22:41)
[2020-07-23] MEDS: Magnesium Sulfate/H2O 2 GM/50 ML PIGGYBACK IV (20:03)
[2020-07-23] MEDS: Potassium Chloride ER 20 MEQ TAB.ER.PRT 60 MEQ PO (20:04)
[2020-07-23] MEDS: iohexoL 350 MG/ML 100 ML INFUS..BTL IV (20:58)
[2020-07-23 21:13] LABS: Glucose Urine UA NEG (NEG); Leukocyte Esterase Urine TRACE (NEG); Nitrite Urine POS (NEG); Specific Gravity - Urine 1.025 (1.005-1.025); UACC Culture Trigger YES; Urine Blood NEG (NEG); Urine Ketones 5 MG/DL (NEG); Urine Protein 1+ MG/DL (NEG-TRACE)
[2020-07-23 21:21] LABS: Appearance Urine CLOUDY; Color Urine AMBER
[2020-07-23 21:29] LABS: Bacteria Urine 4+ /LPF; Squamous Epithelial Cell Urine 1+ /LPF
[2020-07-23 21:36] LABS: Amphetamine Screen Urine Not Detected (Not Detect); Barbiturates, Urine Not Detected (Not Detect); Benzodiazepines Screen Urine Not Detected (Not Detect); Cannabinoid Screen Urine Not Detected (Not Detect); Cocaine Screen Urine Not Detected (Not Detect); Opiate Screen Urine Not Detected (Not Detect); Phencyclidine Screen Urine Not Detected (Not Detect)
[2020-07-23 21:36] LABS: ~Lactic Acid-LAB USE ONLY 2.1 mmol/L (0.5-2.0)
[2020-07-23 21:53] LABS: Troponin-I High Sensitivity 13.7 ng/L (<3.5-17.0)
[2020-07-23 22:06] LABS: Lipase 13 U/L (8-78)
[2020-07-23] MEDS: cefTRIAXone sodium 1 GM in 0.9 % Sodium Chloride 50 ML IV (22:15)
[2020-07-23 23:03] LABS: Reflex Lactate? 2 Y
--- NOTE | 2020-07-23 23:20 | PC.NURSE ---
HOSPITALIST AT BEDSIDE, DOES NOT WANT A 3RD LACTIC ACID DRAWN.
--- NOTE | 2020-07-24 | ECG_ITS ---
Test Reason : HYPOKALEMIA Blood Pressure : / mmHG Vent. Rate : 074 BPM Atrial Rate : 074 BPM P-R Int : 150 ms QRS Dur : 074 ms QT Int : 468 ms P-R-T Axes : 069 037 053 degrees QTc Int : 519 ms Normal sinus rhythm Nonspecific ST and T wave abnormality Prolonged QT Abnormal ECG When compared with ECG of 23-JUL-2020 21:41, Premature atrial complexes are no longer Present Nonspecific T wave abnormality, improved in Inferior leads T wave inversion no longer evident in Anterior leads Referred By: Hussein Frances Electronically Signed By:HUSSEIN FRANCES MD
[2020-07-24 01:08] LABS: ~Lactic Acid-LAB USE ONLY 2.1 mmol/L (0.5-2.0)
[2020-07-24] MEDS: Potassium Chloride/H20 10 MEQ/100 ML PIGGYBACK 100 MEQ IV ×2 (01:25→04:58)
[2020-07-24] MEDS: Potassium Chloride Packet 20 MEQ PACKET 40 MEQ PO ×2 (01:26→04:23)
[2020-07-24 02:55] VITALS: BMI 24.9
[2020-07-24 03:59] VITALS: BP 163/83; PULSE 71; RESP 18; TEMP 36.9; O2SAT 95
[2020-07-24 04:18] LABS: Folate 3.9 ng/mL (> or = 4.0); Vitamin B12 708 pg/mL (200-900)
[2020-07-24] MEDS: 0.9 % Sodium Chloride Flush 3 ML SYRINGE IVFLUSH ×4 (04:23→20:47)
[2020-07-24] MEDS: Heparin Sodium,Porcine 5,000 UNIT/ML VIAL 5000 UNIT SUBCUT ×2 (04:24→18:07)
[2020-07-24 06:25] LABS: MANUAL DIFF FLAG NO
[2020-07-24 06:44] LABS: Basophils Percent Auto 0.2 % (0-2); Hematocrit 33.4 % (37-47); Hemoglobin 11.6 g/dl (12.0-16.0); Imm Gran Abs Auto 0.03 X10*3/uL (0.00-0.03); Imm Gran Pct Auto 0.5 % (0.0-0.4); Lymphocytes Absolute Auto 0.8 X10*3/uL (1.2-4.9); Lymphocytes Percent Auto 13.4 % (20-40); Mean Corpuscular HGB Conc 34.7 g/dl (31.0-35.0); Mean Corpuscular Hemoglobin 38.7 pg (27.0-33.0); Mean Platelet Volume 11.4 fL (9.4-12.3); Monocytes Absolute Auto 0.2 X10*3/uL (0.1-1.2); Monocytes Percent Auto 3.9 % (2-11); Neutrophils Absolute Auto 5.1 X10*3/uL (2.0-8.3); Platelet Count 229 X10*3/uL (160-400); White Blood Count 6.2 X10*3/uL (4.8-10.8)
[2020-07-24] MEDS: LORazepam 1 MG TABLET PO (06:45)
[2020-07-24 06:51] LABS: Mean Corpuscular Volume 111.3 fL (80-98)
--- NOTE | 2020-07-24 06:56 | P.HPHOSP_ITS ---
History of Present Illness Date of Service: 07/23/20 Chief Complaint: Multiple complaints including weakness, dizziness, falls, SOB, This is a 54-year-old female with past medical history of anxiety who presents to the hospital with multiple complaints. Patient reports that for the past 1-2 months patient has been feeling more difficult, she and a nausea and vomiting. She denies any diarrhea, denies any headache or change in vision, no fever chills, no chest pain palpitations. She is complaining of urinary retention and urgency her frequency. No lower extremity edema. Patient reports that she does not drink daily and last drink was 4 days ago. She reports that she has no history of withdrawals from alcohol. She also reports smoking about 1 pack every 2 days. Patient reports over 20 lb weight loss over the past 3 months. She is also having low appetite. On arrival to the ED patient hemodynamically stable with temperature of 98.4?, heart rate of 89, respiratory rate of 13, blood pressure 112/86, satting 96% on room air, although she did drop to 88% on room air For WBC count of 6.2, hemoglobin of 11.6, PT of 14.8, INR of 1.2, potassium of 2.3, chloride of 86, back lactic acid of 3.3 that improved to 2.1, magnesium of 1.3, total bili of 1.7, UA positive for nitrites leukocyte Estrace as some WBC. UDS negative. Alcohol level negative. COVID-19 negative. EKG shows T inversions in leads 1-[address] depressions. T-wave inversions were present on V1-V2 in previous ekg but not in V3. Abdominal CT shows diffuse fatty infiltration of the liver without focal hepatic lesion and no biliary ductal dilatation. There is a 0.8 cm cystic change in the anterior pancreatic tail difficult to define further on this study and recommended MRI/MRCP. Past medical history as below and confirmed with patient Review of Systems Review of Systems: Yes all other systems are reviewed and are negative [facility] Medical History Anxiety Back pain Cough History of panic attacks Nausea Osteoarthritis of right hip Smoker Family History Father No problems noted. Mother No problems noted. Surgical History Delivery by section Social History Household Members: Family Housing: Apartment Do you presently have visiting nurse or other home services: No Alcohol intake: never Smoking Status: Current every day smoker Tobacco Type: Cigarette Packs Per Day: 0.5 Cigarettes Per Day: 10.0 Years Smoked: 43 Smoked in Last 30 Days: Yes Patient Interested in Nicotine Replacement: No (no but might 'take us up on it tomorrow') Patient Given Instructions on How to Stop Smoking: Yes Date Education Initiated: 07/24/20 Second Hand Smoke Exposure: Yes Use of substances other than those prescribed or required for medical reasons: No Have you been hit, kicked, punched, or otherwise hurt by someone within the past year? If so, by whom?: No Do you feel safe in your current relationship?: No Current Relationship Is there a partner from a previous relationship who is making you feel unsafe now?: No Are you made to feel afraid or neglected: No Advance Directives: No Advance Directives Information Provided: Yes Do you have thoughts of harming others: None Do you have a plan to hurt others: No Plan Recently lost weight without trying: Unsure Nutrition Risks: No Nutritional Risk Patient : No Current occupational status: unemployed Current occupation: Right Handed Meds Allergies Allergy/AdvReac Type Severity Reaction Status Date / Time naproxen [From Naprosyn] AdvReac Severe Nausea Verified 03/13/20 10:22 Active Medications: Current Medications Generic Name Dose Route Start Last Admin Trade Name Freq PRN Reason Stop Dose Admin Acetaminophen 650 mg 07/24/20 02:55 Acetaminophen 325 Mg Tablet PO Q6H PRN Pain, Mild (Pain Scale 1-3) Docusate Sodium 100 mg 07/24/20 02:55 Docusate Sodium 100 Mg Capsule PO DAILY PRN Constipation Folic Acid 1 mg 07/24/20 09:00 Folic Acid 1 Mg Tablet PO DAILY CARLEEN Heparin Sodium (Porcine) 5,000 unit 07/24/20 04:00 07/24/20 04:24 Heparin Sodium,Porcine 5,000 Unit/Ml Vial SUBCUT 5,000 unit Q12H CARLEEN Administration Ceftriaxone Sodium 1 gm/ 50 mls @ 100 mls/hr 07/24/20 22:00 Sodium Chloride IV Q24H CARLEEN Lactated Ringer's 1,000 mls @ 100 mls/hr 07/24/20 06:45 Lr IVCONT .Q10H [facility] Lorazepam 1 mg 07/23/20 23:47 07/24/20 06:45 Lorazepam 1 Mg Tablet PO 1 mg BID PRN Administration anxiety Ondansetron HCl 4 mg 07/23/20 23:47 Ondansetron Hcl 4 Mg/2 Ml Vial IVPUSH Q8H PRN Nausea and Vomiting Pharmacy Consult 1 each 07/23/20 19:18 Consult Rx Perform Med Rec MISCELLANE ONCE PRN Consult order Sodium Chloride 3 ml 07/24/20 02:55 07/24/20 04:23 0.9 % Sodium Chloride Flush 3 Ml Syringe IVFLUSH 3 ml QSHIFT [facility] Administration Thiamine HCl 100 mg 07/24/20 09:00 Thiamine Hcl 100 Mg Tablet PO DAILY [facility] Home Medications Medication Instructions Recorded Confirmed Last Taken Type lorazepam 1 mg PO BID PRN 07/23/20 07/23/20 07/23/20 History Physical Exam Vital Signs and Narrative: Vital Signs: Last Vital Signs Temp 98.5 F 07/24/20 03:59 Pulse 71 07/24/20 03:59 Resp 18 07/24/20 03:59 BP 163/83 H 07/24/20 03:59 Pulse Ox 95 07/24/20 03:59 Body Mass Index 24.9 Const: General: cooperative and no acute distress Orientation/consciousness: patient oriented x3 Eyes: General: appearance normal, both eyes and all related structures Resp: Effort & Inspection: normal respiratory effort and able to speak in complete sentences Cardio: Rate: regular rate Rhythm: regular rhythm GI: Palpation (GI): Soft to palpation Auscultation: normal bowel sounds Skin: General skin exam: no rashes or lesions noted Neuro: General: patient oriented x3 Cognition (Neuro): normal cognition Extrem: General: Yes normal to inspection and Yes no pedal edema Results Labs CBC and Chem 7: 07/24/20 05:38 07/24/20 05:38 Labs: Laboratory Results - last 24 hr 07/23/20 07/23/20 07/23/20 17:43 17:43 17:43 MCV 109.7 H MCH 39.9 H MCHC 36.4 H RDW 15.1 Plt Count 233 D MPV 11.1 Immature Gran % (Auto) 0.3 Neut % (Auto) 71.4 Lymph % (Auto) 19.4 L [place] % (Auto) 7.0 Eos % (Auto) 1.1 Baso % (Auto) 0.8 Lymph # (Auto) 1.5 [place] # (Auto) 0.5 Eos # (Auto) 0.1 Baso # (Auto) 0.1 Abs Immat Gran (auto) 0.02 Absolute Neuts (auto) 5.4 Absolute Nucleated RBC 0.000 Nucleated RBC % (auto) 0.0 PT 14.8 H INR 1.2 H Anion Gap Estim Creat Clear Calc Estimated GFR Random Glucose Lactic Acid Lactic Acid Fup @ 2Hr Lactic Acid Fup @ 4Hr Calcium Magnesium Total Bilirubin Direct Bilirubin AST ALT Alkaline Phosphatase Total Creatine Kinase Troponin I High Sens Total Protein Albumin Lipase Vitamin B12 Folate Urine Color Urine Appearance Urine pH Ur Specific [place] Urine Protein Urine Glucose (UA) Urine Ketones Urine Blood Urine Nitrite Ur Leukocyte Esterase Urine RBC Urine WBC Ur Squamous Epith Cells Urine Bacteria Granular Casts Urine Opiates Screen Ur Barbiturates Screen Ur Phencyclidine Scrn Ur Amphetamines Screen U Benzodiazepines Scrn Urine Cocaine Screen U Marijuana (THC) Screen Ethyl Alcohol COVID-19 (ERASTO) Negative COVID-19 Clin Com See Note 07/23/20 07/23/20 07/23/20 17:43 17:43 17:43 MCV MCH MCHC RDW Plt Count MPV Immature Gran % (Auto) Neut % (Auto) Lymph % (Auto) [place] % (Auto) Eos % (Auto) Baso % (Auto) Lymph # (Auto) [place] # (Auto) Eos # (Auto) Baso # (Auto) Abs Immat Gran (auto) Absolute Neuts (auto) Absolute Nucleated RBC Nucleated RBC % (auto) PT INR Anion Gap 16 Estim Creat Clear Calc 85.4 Estimated GFR > 60 Random Glucose 106 Lactic Acid 3.3 H* Lactic Acid Fup @ 2Hr Lactic Acid Fup @ 4Hr Calcium 8.1 L D Magnesium 1.3 L* Total Bilirubin 1.7 H Direct Bilirubin 1.1 H AST 65 H ALT 29 Alkaline Phosphatase 118 H Total Creatine Kinase Troponin I High Sens 14.5 Total Protein 5.5 L Albumin 3.1 L Lipase 13 Vitamin B12 Folate Urine Color Urine Appearance Urine pH Ur Specific [place] Urine Protein Urine Glucose (UA) Urine Ketones Urine Blood Urine Nitrite Ur Leukocyte Esterase Urine RBC Urine WBC Ur Squamous Epith Cells Urine Bacteria Granular Casts Urine Opiates Screen Ur Barbiturates Screen Ur Phencyclidine Scrn Ur Amphetamines Screen U Benzodiazepines Scrn Urine Cocaine Screen U Marijuana (THC) Screen Ethyl Alcohol COVID-19 (ERASTO) COVID-19 [place] 07/23/20 07/23/20 07/23/20 17:43 20:53 20:53 MCV MCH MCHC RDW Plt Count MPV Immature Gran % (Auto) Neut % (Auto) Lymph % (Auto) [place] % (Auto) Eos % (Auto) Baso % (Auto) Lymph # (Auto) [place] # (Auto) Eos # (Auto) Baso # (Auto) Abs Immat Gran (auto) Absolute Neuts (auto) Absolute Nucleated RBC Nucleated RBC % (auto) PT INR Anion Gap Estim Creat Clear Calc Estimated GFR Random Glucose Lactic Acid Lactic Acid Fup @ 2Hr Lactic Acid Fup @ 4Hr Calcium Magnesium Total Bilirubin Direct Bilirubin AST ALT Alkaline Phosphatase Total Creatine Kinase Troponin I High Sens Total Protein Albumin Lipase Vitamin B12 Folate Urine Color MILA Urine Appearance CLOUDY Urine pH 6.0 Ur Specific [place] 1.025 Urine Protein 1+ H Urine Glucose (UA) NEG Urine Ketones 5 Urine Blood NEG Urine Nitrite POS H Ur Leukocyte Esterase TRACE H Urine RBC 1-4 Urine WBC 5-9 H Ur Squamous Epith Cells 1+ Urine Bacteria 4+ Granular Casts 1-4 Urine Opiates Screen Not Detected Ur Barbiturates Screen Not Detected Ur Phencyclidine Scrn Not Detected Ur Amphetamines Screen Not Detected U Benzodiazepines Scrn Not Detected Urine Cocaine Screen Not Detected U Marijuana (THC) Screen Not Detected Ethyl Alcohol < 10 COVID-19 (ERASTO) COVID-19 Triblio 07/23/20 07/23/20 07/23/20 21:00 21:19 21:19 MCV MCH MCHC RDW Plt Count MPV Immature Gran % (Auto) Neut % (Auto) Lymph % (Auto) [place] % (Auto) Eos % (Auto) Baso % (Auto) Lymph # (Auto) [place] # (Auto) Eos # (Auto) Baso # (Auto) Abs Immat Gran (auto) Absolute Neuts (auto) Absolute Nucleated RBC Nucleated RBC % (auto) PT INR Anion Gap Estim Creat Clear Calc Estimated GFR Random Glucose Lactic Acid Lactic Acid Fup @ 2Hr 2.1 H* Lactic Acid Fup @ 4Hr Calcium Magnesium Total Bilirubin Direct Bilirubin AST ALT Alkaline Phosphatase Total Creatine Kinase 93 Troponin I High Sens 13.7 Total Protein Albumin Lipase Vitamin B12 Folate Urine Color Urine Appearance Urine pH Ur Specific [place] Urine Protein Urine Glucose (UA) Urine Ketones Urine Blood Urine Nitrite Ur Leukocyte Esterase Urine RBC Urine WBC Ur Squamous Epith Cells Urine Bacteria Granular Casts Urine Opiates Screen Ur Barbiturates Screen Ur Phencyclidine Scrn Ur Amphetamines Screen U Benzodiazepines Scrn Urine Cocaine Screen U Marijuana (THC) Screen Ethyl Alcohol COVID-19 (ERASTO) COVID-19 Clin Com 07/23/20 07/24/20 07/24/20 21: 00:41 05:38 MCV 111.3 H MCH 38.7 H MCHC 34.7 RDW 15.0 Plt Count 229 MPV 11.4 Immature Gran % (Auto) 0.5 H Neut % (Auto) 82.0 H Lymph % (Auto) 13.4 L [place] % (Auto) 3.9 Eos % (Auto) 0.0 Baso % (Auto) 0.2 Lymph # (Auto) 0.8 L [place] # (Auto) 0.2 Eos # (Auto) 0.0 Baso # (Auto) 0.0 Abs Immat Gran (auto) 0.03 Absolute Neuts (auto) 5.1 Absolute Nucleated RBC 0.000 Nucleated RBC % (auto) 0.0 PT INR Anion Gap Estim Creat Clear Calc Estimated GFR Random Glucose Lactic Acid Lactic Acid Fup @ 2Hr Lactic Acid Fup @ 4Hr 2.1 H* Calcium Magnesium Total Bilirubin Direct Bilirubin AST ALT Alkaline Phosphatase Total Creatine Kinase Troponin I High Sens Total Protein Albumin Lipase Vitamin B12 708 Folate 3.9 L Urine Color Urine Appearance Urine pH Ur Specific [place] Urine Protein Urine Glucose (UA) Urine Ketones Urine Blood Urine Nitrite Ur Leukocyte Esterase Urine RBC Urine WBC Ur Squamous Epith Cells Urine Bacteria Granular Casts Urine Opiates Screen Ur Barbiturates Screen Ur Phencyclidine Scrn Ur Amphetamines Screen U Benzodiazepines Scrn Urine Cocaine Screen U Marijuana (THC) Screen Ethyl Alcohol COVID-19 ([facility]ASTO) COVID-19 Clin Com Imaging Radiologist's Impressions: Impressions Head CT 07/23/20 16:39 IMPRESSION: No acute intracranial pathology. Chest X-Ray 07/23/20 16:40 IMPRESSION: No evidence for acute disease in the chest. Abdomen/Pelvis CT 07/23/20 19:18 IMPRESSION: Diffuse fatty infiltration of the liver without focal hepatic lesion nor biliary ductal dilatation. 0.8 cm cystic change in the anterior pancreatic tail difficult to define further on this study. Correlation with dedicated dynamic liver MRI/MRCP would be recommended to evaluate further. Extensive diverticulosis but no evidence for diverticulitis. Assessment and Plan (1) UTI (urinary tract infection): Status: Acute (2) Acute hypokalemia: Status: Acute (3) Hypomagnesemia: Status: Acute (4) Hypochloremia: Status: Acute (5) Elevated lactic acid level: Status: Acute (6) Elevated LFTs: Status: Acute (7) Weakness: Status: Acute (8) COPD exacerbation: Status: Acute (9) Acute respiratory failure with hypoxia: Status: Acute (10) Acute electrocardiogram changes: Status: Acute (11) Alcohol abuse: Status: Acute (12) Pancreatic cyst: Status: Acute 54-year-old female who presents to the hospital with complaints of shortness of breath, cough, and multiple other symptoms found to have UTI, as well as electrolyte abnormality # acute hypoxic respiratory failure - most likely secondary to underlying COPD although never diagnosed - patient heavy smoker for over 40 years - has dyspnea, cough, and sputum production - no evidence of pneumonia - start on Solu-Medrol, breathing treatments, - will probably need a spirometry study outpatient for official diagnosis # COPD exacerbation - has no official diagnosis - heavy smoker for 40 yrs - no evidence of pna on chest xray - dyspnea, cough, and sputum production - will start her on IV Solu-Medrol, DuoNeb p.r.n. and scheduled - will most likely need work up op # UTI - UA is positive for leukocyte esterase, nitrites, as well as WBC - will treat with IV antibiotics -follow cultures # electrolyte abnormality - hypokalemia, hypomagnesemia - most likely secondary to alcohol abuse and low oral intake - repleted - will follow levels # Acute ekg changes - denies chest pain - no torp elevation - will consult cardiology # cystic changes of pancreatic tail - lipase negative - no abdominal pain - given her 20 lb weight loss over the last 3 months will consult GI for possible MRI/MRCP # elevated LFTs - most likely secondary to her head alcohol abuse - low LFTs # lactic acidosis - most likely secondary to dehydration - improved with IV fluids - continue IV resuscitation # alcohol abuse - reports last drink about 4 days ago - alcohol level negative - will place on CIWA - folic acid and thiamine supplment # anxiety - continue lorazepam
[2020-07-24 07:20] LABS: Blood Urea Nitrogen 6 mg/dL (9-16); Creatinine Clr Calc Pharmacy 102.7; Estimated Glomerular Filt Rate > 60; Glucose Random 130 mg/dL (60-115)
[2020-07-24 07:39] LABS: Anion Gap 16 (12-20); Calcium 7.6 mg/dL (8.4-10.2); Carbon Dioxide 31 mmol/L (22-29); Chloride 98 mmol/L (96-108); Potassium 4.3 mmol/L (3.3-5.1); Sodium 141 mmol/L (135-145)
[2020-07-24 08:00] VITALS: BP 147/79; PULSE 76; RESP 18; TEMP 36.8; O2SAT 95
[2020-07-24] MEDS: Lactated Ringers 1,000 ML 100 ML IVCONT ×2 (08:14→15:48)
[2020-07-24] MEDS: Thiamine HCL 100 MG TABLET PO (08:15)
[2020-07-24] MEDS: Folic Acid 1 MG TABLET PO (08:15)
[2020-07-24 08:23] LABS: Magnesium 1.8 mg/dL (1.6-2.6)
--- NOTE | 2020-07-24 08:57 | MHC.CM.PN ---
Addendum entered by Eliza Tovar 07/24/20 09:07: Patient does not have a HCP and declines filling one out today. Original Note: CM met with patient who reports she amb with a walker but has been having multiple falls. States her sister will come over and help her get into bed at night. Patient lives with ex [id number]. Patient does not have any services at this time, PT eval requested. Discussed discharge plan, home with new referral to [facility] and pending PT eval. Patient states family will provide transport home. CM will continue to follow for discharge needs.
--- NOTE | 2020-07-24 11:04 | PM.CNCAR ---
History of Present Illness History of Present Illness Date of Service: 07/24/20 Requesting physician: Liz Espana Consult reason: other (Abnormal EKG) Chief complaint: UTI, Hypokalemia, Hypomagnesemia Narrative: We are asked to see Bambi in cardiology consultation today for abnormal EKG. She is a 54-year-old female who presents with constellation of symptoms, noncardiac. She says she has been getting weak and falling and having nausea and vomiting. She was not eating well. She says she does not drink on a regular basis, has 3-4 drinks once a week. Does smoke but is trying to cut down. When she came in she was short of breath and noticed to have maybe COPD exacerbation. Her she also was noted to have marked hypokalemia as well as hypermagnesemia. This is been corrected. She was noted to have EKG changes with some nonspecific ST T wave changes but was noted to have QT prolongation. Repeat EKG this morning still shows QTC interval of 519 milliseconds which is prolonged. She has no prior history of prolonged QT that we are aware o and f she has no prior history of heart issues. Denies any palpitations, lightheadedness, syncope. Review of Systems Constitutional: Constitutional: Denies chills, Denies fever(s), Reports frequent falls and Reports weakness Cardiovascular: Cardiovascular: Reports no additional cardiovascular complaints Respiratory: Respiratory: Reports no additional respiratory complaints Gastrointestinal: Gastrointestinal: Reports no additional gastrointestinal complaints Genitourinary: Genitourinary: Reports no additional female genitourinary complaints Neurologic: Reports system reviewed and no additional complaints, except as documented, Reports frequent falls and Reports weakness Psychiatric: Psychiatric: Reports no additional psychiatric complaints Endocrine: Endocrine: Reports no additional endocrine complaints [facility] Past Medical History Medical History Anxiety Back pain Cough History of panic attacks Nausea Osteoarthritis of right hip Smoker Family History Family History Father No problems noted. Mother No problems noted. Surgical History Surgical History Delivery by section Social History Social History Household Members: Family Housing: Apartment Do you presently have visiting nurse or other home services: No Alcohol intake: never Smoking Status: Current every day smoker Tobacco Type: Cigarette Packs Per Day: 0.5 Cigarettes Per Day: 10.0 Years Smoked: 43 Smoked in Last 30 Days: Yes Patient Interested in Nicotine Replacement: No (no but might 'take us up on it tomorrow') Patient Given Instructions on How to Stop Smoking: Yes Date Education Initiated: 07/24/20 Second Hand Smoke Exposure: Yes Use of substances other than those prescribed or required for medical reasons: No Currently Displaying Signs/Symptoms of Drug Intoxication Withdrawal: No Have you been hit, kicked, punched, or otherwise hurt by someone within the past year? If so, by whom?: No Do you feel safe in your current relationship?: No Current Relationship Is there a partner from a previous relationship who is making you feel unsafe now?: No Are you made to feel afraid or neglected: No Advance Directives: No Advance Directives Information Provided: Yes Do you have thoughts of harming others: None Do you have a plan to hurt others: No Plan Recently lost weight without trying: Unsure Nutrition Risks: No Nutritional Risk Patient : No service: No Current occupational status: disabled Current occupation: Right Handed Meds Allergies Allergy/AdvReac Type Severity Reaction Status Date / Time naproxen [From Naprosyn] AdvReac Severe Nausea Verified 03/13/20 10:22 Active Medications: Current Medications Generic Name Dose Route Start Last Admin Trade Name Devanteq PRN Reason Stop Dose Admin Acetaminophen 650 mg 07/24/20 02:55 Acetaminophen 325 Mg Tablet PO Q6H PRN Pain, Mild (Pain Scale 1-3) Docusate Sodium 100 mg 07/24/20 02:55 Docusate Sodium 100 Mg Capsule PO DAILY PRN Constipation Folic Acid 1 mg 07/24/20 09:00 07/24/20 08:15 Folic Acid 1 Mg Tablet PO 1 mg DAILY CARLEEN Administration Heparin Sodium (Porcine) 5,000 unit 07/24/20 04:00 07/24/20 04:24 Heparin Sodium,Porcine 5,000 Unit/Ml Vial SUBCUT 5,000 unit Q12H CARLEEN Administration Ceftriaxone Sodium 1 gm/ 50 mls @ 100 mls/hr 07/24/20 22:00 Sodium Chloride IV Q24H CARLEEN Lactated Ringer's 1,000 mls @ 100 mls/hr 07/24/20 06:45 07/24/20 08:14 Lr IVCONT 100 mls/hr .Q10H CARLEEN Administration Lorazepam 1 mg 07/23/20 23:47 07/24/20 06:45 Lorazepam 1 Mg Tablet PO 1 mg BID PRN Administration anxiety Ondansetron HCl 4 mg 07/23/20 23:47 Ondansetron Hcl 4 Mg/2 Ml Vial IVPUSH Q8H PRN Nausea and Vomiting Pharmacy Consult 1 each 07/23/20 19:18 Consult Rx Perform Med Rec MISCELLANE ONCE PRN Consult order Sodium Chloride 3 ml 07/24/20 02:55 07/24/20 08:15 0.9 % Sodium Chloride Flush 3 Ml Syringe IVFLUSH 3 ml QSHIFT CARLEEN Administration Thiamine HCl 100 mg 07/24/20 09:00 07/24/20 08:15 Thiamine Hcl 100 Mg Tablet PO 100 mg DAILY CARLEEN Administration Home Medications Medication Instructions Recorded Confirmed Last Taken Type lorazepam 1 mg PO BID PRN 07/23/20 07/23/20 07/23/20 History Physical Exam Vital Signs: Vital Signs: Last Vital Signs Temp 98.2 F 07/24/20 08:00 Pulse 76 07/24/20 08:00 Resp 18 07/24/20 08:00 BP 147/79 H 07/24/20 08:00 Pulse Ox 95 07/24/20 08:00 Body Mass Index 24.9 Const: General: cooperative, comfortable, alert and awake Nutritional Appearance: average body habitus Orientation/consciousness: patient oriented x3 HENMT: Head: Yes normocephalic and Yes atraumatic Neck: Neck: Yes trachea midline, Yes supple and Yes no JVD Resp: Effort & Inspection: normal respiratory effort Auscultation: wheezes scattered wheezes and diminished lung sounds Cardio: Jugular venous distension: no JVD Palpation: normal PMI Rate: regular rate Rhythm: regular rhythm Heart sounds: S1 normal heart sound present and S2 normal heart sound present GI: Auscultation: normal bowel sounds Skin: General skin exam: no rashes or lesions noted Neuro: General: patient oriented x3 Extrem: General: Yes no clubbing, cyanosis or edema Psych: Appearance: grossly normal Affect: Depressed mood present Results Labs and Meds Result diagrams: 07/24/20 05:38 07/24/20 05:38 Lab results: Laboratory Results - last 24 hr 07/23/20 07/23/2021 17:43 17:43 17:43 WBC 7.6 RBC 3.21 L D Hgb 12.8 Hct 35.2 L MCV 109.7 H MCH 39.9 H MCHC 36.4 H RDW 15.1 Plt Count 233 D MPV 11.1 Immature Gran % (Auto) 0.3 Neut % (Auto) 71.4 Lymph % (Auto) 19.4 L [place] % (Auto) 7.0 Eos % (Auto) 1.1 Baso % (Auto) 0.8 Lymph # (Auto) 1.5 [place] # (Auto) 0.5 Eos # (Auto) 0.1 Baso # (Auto) 0.1 Abs Immat Gran (auto) 0.02 Absolute Neuts (auto) 5.4 Absolute Nucleated RBC 0.000 Nucleated RBC % (auto) 0.0 PT 14.8 H INR 1.2 H Sodium Potassium Chloride Carbon Dioxide Anion Gap BUN Creatinine Estim Creat Clear Calc Estimated GFR Random Glucose Lactic Acid Lactic Acid Fup @ 2Hr Lactic Acid Fup @ 4Hr Calcium Magnesium Total Bilirubin Direct Bilirubin AST ALT Alkaline Phosphatase Total Creatine Kinase Troponin I High Sens Total Protein Albumin Lipase Vitamin B12 Folate Urine Color Urine Appearance Urine pH Ur Specific [place] Urine Protein Urine Glucose (UA) Urine Ketones Urine Blood Urine Nitrite Ur Leukocyte Esterase Urine RBC Urine WBC Ur Squamous Epith Cells Urine Bacteria Granular Casts Urine Opiates Screen Ur Barbiturates Screen Ur Phencyclidine Scrn Ur Amphetamines Screen U Benzodiazepines Scrn Urine Cocaine Screen U Marijuana (THC) Screen Ethyl Alcohol COVID-19 ([facility]) Negative COVID-19 Clin Com See Note 07/23/20 07/23/20 07/23/20 17:43 17:43 17:43 WBC RBC Hgb Hct MCV MCH MCHC RDW Plt Count MPV Immature Gran % (Auto) Neut % (Auto) Lymph % (Auto) [place] % (Auto) Eos % (Auto) Baso % (Auto) Lymph # (Auto) [place] # (Auto) Eos # (Auto) Baso # (Auto) Abs Immat Gran (auto) Absolute Neuts (auto) Absolute Nucleated RBC Nucleated RBC % (auto) PT INR Sodium 139 Potassium 2.3 L* Chloride 86 L Carbon Dioxide 39 H Anion Gap 16 BUN 8 L Creatinine 0.63 Estim Creat Clear Calc 85.4 Estimated GFR > 60 Random Glucose 106 Lactic Acid 3.3 H* Lactic Acid Fup @ 2Hr Lactic Acid Fup @ 4Hr Calcium 8.1 L D Magnesium 1.3 L* Total Bilirubin 1.7 H Direct Bilirubin 1.1 H AST 65 H ALT 29 Alkaline Phosphatase 118 H Total Creatine Kinase Troponin I High Sens 14.5 Total Protein 5.5 L Albumin 3.1 L Lipase 13 Vitamin B12 Folate Urine Color Urine Appearance Urine pH Ur Specific [place] Urine Protein Urine Glucose (UA) Urine Ketones Urine Blood Urine Nitrite Ur Leukocyte Esterase Urine RBC Urine WBC Ur Squamous Epith Cells Urine Bacteria Granular Casts Urine Opiates Screen Ur Barbiturates Screen Ur Phencyclidine Scrn Ur Amphetamines Screen U Benzodiazepines Scrn Urine Cocaine Screen U Marijuana (THC) Screen Ethyl Alcohol COVID-19 ([facility]ASTO) COVID-19 [employer] 07/23/20 07/23/20 07/23/20 17:43 20:53 20:53 WBC RBC Hgb Hct MCV MCH MCHC RDW Plt Count MPV Immature Gran % (Auto) Neut % (Auto) Lymph % (Auto) [place] % (Auto) Eos % (Auto) Baso % (Auto) Lymph # (Auto) [place] # (Auto) Eos # (Auto) Baso # (Auto) Abs Immat Gran (auto) Absolute Neuts (auto) Absolute Nucleated RBC Nucleated RBC % (auto) PT INR Sodium Potassium Chloride Carbon Dioxide Anion Gap BUN Creatinine Estim Creat Clear Calc Estimated GFR Random Glucose Lactic Acid Lactic Acid Fup @ 2Hr Lactic Acid Fup @ 4Hr Calcium Magnesium Total Bilirubin Direct Bilirubin AST ALT Alkaline Phosphatase Total Creatine Kinase Troponin I High Sens Total Protein Albumin Lipase Vitamin B12 Folate Urine Color MILA Urine Appearance CLOUDY Urine pH 6.0 Ur Specific [place] 1.025 Urine Protein 1+ H Urine Glucose (UA) NEG Urine Ketones 5 Urine Blood NEG Urine Nitrite POS H Ur Leukocyte Esterase TRACE H Urine RBC 1-4 Urine WBC 5-9 H Ur Squamous Epith Cells 1+ Urine Bacteria 4+ Granular Casts 1-4 Urine Opiates Screen Not Detected Ur Barbiturates Screen Not Detected Ur Phencyclidine Scrn Not Detected Ur Amphetamines Screen Not Detected U Benzodiazepines Scrn Not Detected Urine Cocaine Screen Not Detected U Marijuana (THC) Screen Not Detected Ethyl Alcohol < 10 COVID-19 ([facility]ASTO) COVID-19 [employer] 07/23/20 07/23/20 07/23/20 21:00 21:19 21:19 WBC RBC Hgb Hct MCV MCH MCHC RDW Plt Count MPV Immature Gran % (Auto) Neut % (Auto) Lymph % (Auto) [place] % (Auto) Eos % (Auto) Baso % (Auto) Lymph # (Auto) [place] # (Auto) Eos # (Auto) Baso # (Auto) Abs Immat Gran (auto) Absolute Neuts (auto) Absolute Nucleated RBC Nucleated RBC % (auto) PT INR Sodium Potassium Chloride Carbon Dioxide Anion Gap BUN Creatinine Estim Creat Clear Calc Estimated GFR Random Glucose Lactic Acid Lactic Acid Fup @ 2Hr 2.1 H* Lactic Acid Fup @ 4Hr Calcium Magnesium Total Bilirubin Direct Bilirubin AST ALT Alkaline Phosphatase Total Creatine Kinase 93 Troponin I High Sens 13.7 Total Protein Albumin Lipase Vitamin B12 Folate Urine Color Urine Appearance Urine pH Ur Specific [place] Urine Protein Urine Glucose (UA) Urine Ketones Urine Blood Urine Nitrite Ur Leukocyte Esterase Urine RBC Urine WBC Ur Squamous Epith Cells Urine Bacteria Granular Casts Urine Opiates Screen Ur Barbiturates Screen Ur Phencyclidine Scrn Ur Amphetamines Screen U Benzodiazepines Scrn Urine Cocaine Screen U Marijuana (THC) Screen Ethyl Alcohol COVID-19 ([facility]) COVID-19 Clin Com 07/23/20 07/24/20 07/24/20 21:19 00:41 05:38 WBC 6.2 RBC 3.00 L Hgb 11.6 L Hct 33.4 L MCV 111.3 H MCH 38.7 H MCHC 34.7 RDW 15.0 Plt Count 229 MPV 11.4 Immature Gran % (Auto) 0.5 H Neut % (Auto) 82.0 H Lymph % (Auto) 13.4 L [place] % (Auto) 3.9 Eos % (Auto) 0.0 Baso % (Auto) 0.2 Lymph # (Auto) 0.8 L [place] # (Auto) 0.2 Eos # (Auto) 0.0 Baso # (Auto) 0.0 Abs Immat Gran (auto) 0.03 Absolute Neuts (auto) 5.1 Absolute Nucleated RBC 0.000 Nucleated RBC % (auto) 0.0 PT INR Sodium Potassium Chloride Carbon Dioxide Anion Gap BUN Creatinine Estim Creat Clear Calc Estimated GFR Random Glucose Lactic Acid Lactic Acid Fup @ 2Hr Lactic Acid Fup @ 4Hr 2.1 H* Calcium Magnesium Total Bilirubin Direct Bilirubin AST ALT Alkaline Phosphatase Total Creatine Kinase Troponin I High Sens Total Protein Albumin Lipase Vitamin B12 708 Folate 3.9 L Urine Color Urine Appearance Urine pH Ur Specific [place] Urine Protein Urine Glucose (UA) Urine Ketones Urine Blood Urine Nitrite Ur Leukocyte Esterase Urine RBC Urine WBC Ur Squamous Epith Cells Urine Bacteria Granular Casts Urine Opiates Screen Ur Barbiturates Screen Ur Phencyclidine Scrn Ur Amphetamines Screen U Benzodiazepines Scrn Urine Cocaine Screen U Marijuana (THC) Screen Ethyl Alcohol COVID-19 ([facility]) COVID-19 Clin Com 07/24/20 05:38 WBC RBC Hgb Hct MCV MCH MCHC RDW Plt Count MPV Immature Gran % (Auto) Neut % (Auto) Lymph % (Auto) [place] % (Auto) Eos % (Auto) Baso % (Auto) Lymph # (Auto) [place] # (Auto) Eos # (Auto) Baso # (Auto) Abs Immat Gran (auto) Absolute Neuts (auto) Absolute Nucleated RBC Nucleated RBC % (auto) PT INR Sodium 141 Potassium 4.3 D Chloride 98 Carbon Dioxide 31 H Anion Gap 16 BUN 6 L Creatinine 0.57 Estim Creat Clear Calc 102.7 Estimated GFR > 60 Random Glucose 130 H Lactic Acid Lactic Acid Fup @ 2Hr Lactic Acid Fup @ 4Hr Calcium 7.6 L D Magnesium 1.8 Total Bilirubin Direct Bilirubin AST ALT Alkaline Phosphatase Total Creatine Kinase Troponin I High Sens Total Protein Albumin Lipase Vitamin B12 Folate Urine Color Urine Appearance Urine pH Ur Specific [place] Urine Protein Urine Glucose (UA) Urine Ketones Urine Blood Urine Nitrite Ur Leukocyte Esterase Urine RBC Urine WBC Ur Squamous Epith Cells Urine Bacteria Granular Casts Urine Opiates Screen Ur Barbiturates Screen Ur Phencyclidine Scrn Ur Amphetamines Screen U Benzodiazepines Scrn Urine Cocaine Screen U Marijuana (THC) Screen Ethyl Alcohol COVID-19 ([facility]) COVID-19 Clin Com EKG yesterday shows normal sinus rhythm with nonspecific ST T wave changes in the precordial leads however there is prolonged ST segment with low-amplitude T-waves, highly consistent with seen in hypokalemia. EKG today shows still persistent QT prolongation but improved T-wave amplitude in the anteriorly with no significant T-wave abnormalities today. Imaging Radiologist's impression: Impressions Head CT 07/23/20 16:39 IMPRESSION: No acute intracranial pathology. Chest X-Ray 07/23/20 16:40 IMPRESSION: No evidence for acute disease in the chest. Abdomen/Pelvis CT 07/23/20 19:18 IMPRESSION: Diffuse fatty infiltration of the liver without focal hepatic lesion nor biliary ductal dilatation. 0.8 cm cystic change in the anterior pancreatic tail difficult to define further on this study. Correlation with dedicated dynamic liver MRI/MRCP would be recommended to evaluate further. Extensive diverticulosis but no evidence for diverticulitis. Assessment and Plan (1) Abnormal EKG: Status: Acute Abnormal EKG without any active cardiac issues with no evidence of myocardial ischemia and or heart failure at this point time. On admission she had marked hyperkalemia and hypermagnesemia which could explain low amplitude T-waves as well as prolonged ST segment. Her she continues to have QT prolongation after correction of potassium not to normal range today. Still has mild hypomagnesemia. Continue potassium and magnesium repletion and continue to follow the same. She is currently only on Zofran, with no other psychoactive medications from home. Avoid all QT prolonging drugs. No acute interventions required for the same. Will need to follow up with EKGs as outpatient. Continue to maintain potassium and magnesium above 4 and 2 respectively. Echocardiogram can be requested however can also be done as an outpatient. She was advised to avoid and abstain from alcohol as well as participate in smoking cessation program. Continue to manage her underlying COPD as per the hospitalist team. Will sign of the case. Thank you for allowing us to partake in the care Procedures Date of Service Date of Service: 07/24/20
[2020-07-24 12:00] VITALS: BP 156/86; PULSE 79; RESP 19; TEMP 37; O2SAT 94
[2020-07-24 12:04] VITALS: BP 147/79; PULSE 76; O2SAT 95
[2020-07-24] MEDS: Magnesium Sulfate/D5W 1 GM/100 ML PIGGYBACK IV (14:30)
--- NOTE | 2020-07-24 14:33 | MHC.CM.PN ---
CM spoke with patient re: PT recommending STR. Choices are [facility], [facility], [facility] and [facility]. Referrals made via allscripts. Patient will need BLS transportation. CM will continue to follow patient for discharge needs.
--- NOTE | 2020-07-24 15:01 | HO.PM.IMPN ---
Subjective Subjective Date of Service: 07/24/20 Interval History: Seen this morning in follow up Reports decreased appetite at home because food does not taste good, eating very little Denies shortness of breath, chest pain; cough improving Physical Exam Vital Signs: Vital Signs: Last Vital Signs Temp 98.6 F 07/24/20 12:00 Pulse 76 07/24/20 12:04 Resp 19 07/24/20 12:00 BP 147/79 H 07/24/20 12:04 Pulse Ox 95 07/24/20 12:04 Body Mass Index 24.9 Const: General: alert and awake Nutritional Appearance: well nourished HENMT: Head: Yes normocephalic and Yes atraumatic Eyes: Sclerae: sclerae normal Chest: Chest palpation & inspection: normal inspection of the chest Resp: Effort & Inspection: normal respiratory effort and no respiratory distress Auscultation: wheezes Cardio: Rate: regular rate Rhythm: regular rhythm GI: Palpation (GI): Soft to palpation and nontender Neuro: Cranial nerves: Yes CN's II-XII intact bilaterally and Yes Bilaterally intact EOM present Extrem: Other: no edema Objective Data Current Medications Generic Name Dose Route Start Last Admin Trade Name Freq PRN Reason Stop Dose Admin Acetaminophen 650 mg 07/24/20 02:55 Acetaminophen 325 Mg Tablet PO Q6H PRN Pain, Mild (Pain Scale 1-3) Docusate Sodium 100 mg 07/24/20 02:55 Docusate Sodium 100 Mg Capsule PO DAILY PRN Constipation Folic Acid 1 mg 07/24/20 09:00 07/24/20 08:15 Folic Acid 1 Mg Tablet PO 1 mg DAILY CARLEEN Administration Heparin Sodium (Porcine) 5,000 unit 07/24/20 04:00 07/24/20 04:24 Heparin Sodium,Porcine 5,000 Unit/Ml Vial SUBCUT 5,000 unit Q12H CARLEEN Administration Ceftriaxone Sodium 1 gm/ 50 mls @ 100 mls/hr 07/24/20 22:00 Sodium Chloride IV Q24H CARLEEN Lactated Ringer's 1,000 mls @ 100 mls/hr 07/24/20 06:45 07/24/20 08:14 Lr IVCONT 100 mls/hr .Q10H CARLEEN Administration Lorazepam 1 mg 07/23/20 23:47 07/24/20 06:45 Lorazepam 1 Mg Tablet PO 1 mg BID PRN Administration anxiety Pharmacy Consult 1 each 07/23/20 19:18 Consult Rx Perform Med Rec MISCELLANE ONCE PRN Consult order Sodium Chloride 3 ml 07/24/20 02:55 07/24/20 08:15 0.9 % Sodium Chloride Flush 3 Ml Syringe IVFLUSH 3 ml QSHIFT CARLEEN Administration Thiamine HCl 100 mg 07/24/20 09:00 07/24/20 08:15 Thiamine Hcl 100 Mg Tablet PO 100 mg DAILY CARLEEN Administration Labs CBC & Chem 7: 07/24/20 05:38 07/24/20 05:38 Microbiology Microbiology Results: Microbiology 07/23/20 21:30 Urine clean catch - Clean Catch Midstream Urine Culture - Preliminary Gram negative jina Assessment and Plan (1) Abnormal EKG: Status: Acute (2) Pancreatic cyst: Status: Acute (3) Acute respiratory failure with hypoxia: Status: Acute (4) COPD exacerbation: Status: Acute (5) UTI (urinary tract infection): Status: Acute Assessment and Plan: 54-year-old female who presents to the hospital with complaints of shortness of breath, cough, and multiple other symptoms found to have UTI, as well as electrolyte abnormality acute hypoxic respiratory failure most likely secondary to underlying undiagnosed COPD given 40+ year smoking history has dyspnea, cough, and sputum production. no evidence of pneumonia - start on Solu-Medrol, breathing treatments, - outpatient PFTs for official diagnosis UTI - continue IV ceftriaxone - UCx growing gram - rods, follow-up final sensitivities electrolyte abnormality hypokalemia, hypomagnesemia. most likely secondary to ?alcohol abuse and low oral intake resolved Acute ekg changes/prolonged QT Drop flat, no chest pain Prolonged QT persist despite resolution of hypokalemia/hypo magnesemia -avoid QT prolonging medication -seen by Cardiology, outpatient follow-up cystic changes of pancreatic tail lipase negative, no abdominal pain - given her 20 lb weight loss over the last 3 months will consult GI for possible MRI/MRCP elevated LFTs -will follow lactic acidosis - most likely secondary to dehydration - improved with IV fluids - continue IV resuscitation alcohol abuse Patient denies daily alcohol use. alcohol level negative Does not appear to be in active alcohol withdrawal at this time - follow CIWA - folic acid and thiamine supplment anxiety - continue lorazepam Falls, weakness Seen by PT, rec STR DVT prophylaxis-heparin Attending-Dr. Gracia
[2020-07-24 15:39] VITALS: BP 160/91; PULSE 80; RESP 18; TEMP 36.8; O2SAT 90
--- NOTE | 2020-07-24 17:40 | PM.EVENT ---
Event Note Date of Service: 07/24/20 Event Note: GI Consult-Full note dictated Imp: Incidental finding of a small and benign pancreatic cyst. She has no active symptoms of pancreatitis , and denies previous history of pancreatitis. However, it appears that she does have some EtOH history. Her abdominal exam is very benign. I suspect this pancreatic cyst is of no clinical significance. It could be as a result of a previous history of EtOH-induced pancreatitis. Rec: MRI with MRCP for better evaluation of the cyst and any communication with the pancreatic duct. Advance diet after MRI. I did advise her to eliminate alcohol from her lifestyle. Thanks
[2020-07-24 19:45] VITALS: BP 152/85; PULSE 73; RESP 17; TEMP 36.6; O2SAT 97
[2020-07-24] MEDS: cefTRIAXone sodium 1 GM in 0.9 % Sodium Chloride 50 ML IV (20:48)
--- NOTE | 2020-07-24 21:56 | CONS_ITS ---
DATE OF SERVICE: 07/24/2020 REASON FOR CONSULTATION: Pancreatic cyst. HISTORY OF PRESENT ILLNESS: The patient is a 54-year-old female, admitted to the hospital yesterday primarily for issues with weakness and difficulty walking. She does have a history of some alcohol use, which she describes at least several drinks couple of times a week. However, in reviewing her chart, it appears that there is a suspicion for more alcohol than that. In any event since admission here, she has had no abdominal pain. At home, she was having occasional vomiting, but not on a regular basis. She denies any previous history of chronic heartburn nor dysphagia. She reports that her bowel movements have been fairly regular and without hematochezia nor melena. She denies any previous history of pancreatitis in herself nor family members. She has not noticed any jaundice. Here in the hospital, she has been n.p.o. thus far, but is somewhat hungry. She has been afebrile. In reviewing her record, she has not had any previous imaging studies of her pancreas, at least in this hospital. CURRENT MEDICATIONS: Include acetaminophen, albuterol inhaler, ceftriaxone that she received in the ER, but was subsequently discontinued; Colace, folic acid, subcu heparin, Ativan p.r.n., magnesium, thiamine. PAST MEDICAL HISTORY: Anxiety. Some alcohol use. Anxiety. Panic attacks. Arthritis. . SOCIAL HISTORY: As above. She has been a smoker. FAMILY HISTORY: Noncontributory. PHYSICAL EXAMINATION: GENERAL: The patient is an alert, cooperative female. SKIN: Warm and dry. HEENT: Anicteric sclerae. NECK: Supple. ABDOMEN: Soft, nondistended, nontender without palpable mass. LABORATORY DATA: CAT scan of her abdomen and pelvis done yesterday revealed changes consistent with a fatty liver, but no biliary disease nor gallbladder abnormalities. Her pancreas appears atrophic, but shows an 8 mm cystic area in the anterior aspect of the pancreatic tail. There is no obvious pancreatic ductal abnormalities nor pancreatic mass otherwise. Diverticulosis was present in the colon rather extensively, but mostly in the sigmoid colon. White blood cell count 6.2, hemoglobin 11.6, platelets 229,000. PT 14.8 with INR 1.2. Normal electrolytes. BUN 6, creatinine 0.6. Total bilirubin is 1.7, direct bilirubin 1.1, AST 65, ALT 29, alkaline phosphatase 118, albumin 3.1, BUN 6, creatinine 0.6. 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 This does not have any worrisome features to it. There is no sign of any pancreatitis. Her abdominal exam is entirely benign in this regard. Therefore, I consider the finding of the pancreatic cyst to be an incidental finding. I do suspect the pancreatic cyst is of no clinical significance. One concern would be as a result of her previous alcohol use and previous history of alcohol-induced pancreatitis, although she denies she has had that. This may also represent an incidental finding of a benign pancreatic cyst, but given its very small nature and appearance on the CAT scan at least, I do not think this will pose any clinical issues for her going forward. However, I would recommend an MRI with MRCP to assess the cyst further and see if there is any communication with the pancreatic duct. I would not recommend drainage of the cyst or biopsy. I think her diet can be advanced at this point after the MRI is completed. She was advised to eliminate alcohol from her lifestyle. I shall check a CA 19-9 level for the morning. This has been discussed with the patient. MD YAW Lindsey/AILYN / [id number] MTDD
[2020-07-25] VITALS: BP 136/85; PULSE 74; RESP 18; TEMP 36.7; O2SAT 96
[2020-07-25 03:11] VITALS: BP 131/75; PULSE 77; RESP 18; TEMP 36.2; O2SAT 92
[2020-07-25] MEDS: Lactated Ringers 1,000 ML 100 ML IVCONT (03:22)
[2020-07-25] MEDS: Heparin Sodium,Porcine 5,000 UNIT/ML VIAL 5000 UNIT SUBCUT (03:22)
[2020-07-25 06:47] LABS: Anion Gap 10 (12-20); Blood Urea Nitrogen 6 mg/dL (9-16); Carbon Dioxide 33 mmol/L (22-29); Chloride 101 mmol/L (96-108); Creatinine Clr Calc Pharmacy 119.4; Estimated Glomerular Filt Rate > 60; Glucose Random 77 mg/dL (60-115); Sodium 140 mmol/L (135-145)
[2020-07-25 06:49] LABS: Alanine Aminotransferase 30 U/L (0-31); Albumin Level 2.9 g/dL (3.5-5.0); Alkaline Phosphatase 109 U/L (39-117); Aspartate Amino Transferase 68 U/L (5-31); Bilirubin Direct 0.7 mg/dL (0.0-0.5); Bilirubin Total 0.9 mg/dL (0.0-1.0); Total Protein 5.1 g/dL (6.5-8.0)
[2020-07-25 07:56] VITALS: BP 154/95; PULSE 81; RESP 18; TEMP 36.4; O2SAT 96
[2020-07-25 08:17] LABS: Magnesium 1.9 mg/dL (1.6-2.6)
[2020-07-25] MEDS: Thiamine HCL 100 MG TABLET PO (08:28)
[2020-07-25] MEDS: Folic Acid 1 MG TABLET PO (08:29)
[2020-07-25] MEDS: 0.9 % Sodium Chloride Flush 3 ML SYRINGE IVFLUSH (08:29)
[2020-07-25 10:28] VITALS: BP 154/95; PULSE 81; O2SAT 96
[2020-07-25 11:54] VITALS: BP 140/67; PULSE 81; TEMP 36.4; O2SAT 96
--- NOTE | 2020-07-25 11:54 | P.DS_ITS ---
DS: Providers Provider Date of Service: 07/25/20 <CLAIR Combs - Last Filed: 07/25/20 14:44> 07/25/20 <Chino Gracia MD - Last Filed: 07/28/20 08:15> Date of admission: 07/23/20 23:47 <CLAIR Combs - Last Filed: 07/25/20 14:44> Primary care physician: Gagandeep Amor MD <CLAIR Combs - Last Filed: 07/25/20 14:44> Consults: 07/24/20 02:55 Consult to Gastroenterology Routine Consulting Provider: Rashard Delgado Reason for consultation: pancreatic tail cystic change as seen on CT. Weight loss Has provider been notified: No 07/24/20 07:07 Consult to Cardiology Routine Consulting Provider: Hussein Frances Reason for consultation: St-depression, T wave inversion with no elevated trop Has provider been notified: No <CLAIR Combs - Last Filed: 07/25/20 14:44> DS: Diagnosis Discharge Diagnosis (1) Acute respiratory failure with hypoxia: Status: Acute <CLAIR Combs - Last Filed: 07/25/20 14:44> (2) COPD exacerbation: Status: Acute <CLAIR Combs - Last Filed: 07/25/20 14:44> (3) UTI (urinary tract infection): Status: Acute <CLAIR Combs - Last Filed: 07/25/20 14:44> (4) Abnormal EKG: Status: Acute <CLAIR Combs - Last Filed: 07/25/20 14:44> (5) Pancreatic cyst: Status: Acute <CLAIR Combs - Last Filed: 07/25/20 14:44> DS: Medications Discharge Medications Home Medications: Home Medications Medication Instructions Recorded Confirmed lorazepam 1 mg PO BID PRN 07/23/20 07/23/20 Previous Rx's Medication Instructions Recorded cane #1 ea 12/31/19 <CLAIR Combs - Last Filed: 07/25/20 14:44> DS: Summary Hospital Course Hospital Course: From H&P This is a 54-year-old female with past medical history of anxiety who presents to the hospital with multiple complaints. Patient reports that for the past 1-2 months patient has been feeling more difficult, she and a nausea and vomiting. She denies any diarrhea, denies any headache or change in vision, no fever chills, no chest pain palpitations. She is complaining of urinary retention and urgency her frequency. No lower extremity edema. Patient reports that she does not drink daily and last drink was 4 days ago. She reports that she has no history of withdrawals from alcohol. She also reports smoking about 1 pack every 2 days. Patient reports over 20 lb weight l oss over the past 3 months. She is also having low appetite. On arrival to the ED patient hemodynamically stable with temperature of 98.4?, heart rate of 89, respiratory rate of 13, blood pressure 112/86, satting 96% on room air, although she did drop to 88% on room air For WBC count of 6.2, hemoglobin of 11.6, PT of 14.8, INR of 1.2, potassium of 2.3, chloride of 86, back lactic acid of 3.3 that improved to 2.1, magnesium of 1.3, total bili of 1.7, UA positive for nitrites leukocyte Estrace as some WBC. UDS negative. Alcohol level negative. COVID-19 negative. EKG shows T inversions in leads 1-[address] depressions. T-wave inversions were present on V1-V2 in previous ekg but not in V3. Abdominal CT shows diffuse fatty infiltration of the liver without focal hepatic lesion and no biliary ductal dilatation. There is a 0.8 cm cystic change in the anterior pancreatic tail difficult to define further on this study and recommended MRI/MRCP. acute hypoxic respiratory failure most likely secondary to underlying undiagnosed COPD given 40+ year smoking history. Was started IV Solu-Medrol as well as scheduled and as needed DuoNeb breathing treatments. She will be discharged on 5 days of prednisone. She should call to schedule appointment with pulmonology for follow-up and will likely need PFTs for official diagnosis. She is urged to stop smoking and will be discharged with nicotine replacement therapy. She initially required supplemental oxygen but was able to be weaned down to room air and is currently saturating 94% room air. UTI. UCx growing curran sensitive E coli. She was initially started on IV ceftriaxone and will be transitioned to Ceftin on discharge. electrolyte abnormality. She was noted to have hypokalemia and hypomagnesemia. most likely secondary to ?alcohol abuse and low oral intake. Her electrolytes improved with replacement. Should be followed periodically after discharge. Acute ekg changes/prolonged QT. Troponin was flat, she had no chest pain. Prolonged QT persisted despite resolution of hypokalemia/hypo magnesemia. She was seen in consultation by Cardiology who recommended outpatient echocardiogram and to follow-up outpatient for repeat EKG and further work up. She is recommended to avoid all QT prolonging medications. cystic changes of pancreatic tail. Lipase was negative and she had no abdominal pain. She was seen in consultation by GI who recommended MRCP. MRCP was obtained and redemonstrated nonenhancing cyst in the pancreatic tail which was too small for further characterization. There was no obvious solid component, n odularity or enhancement. There are no suspicious or worrisome features. The adjacent pancreatic duct was grossly unremarkable. Recommend repeat MRI in 2-4 years to ensure stability of cyst. alcohol abuse Patient denies daily alcohol use. alcohol level negative. She did not appear to be in active alcohol withdrawal. She was followed on CIWA scale but did not require treatment. She was started on supplementation with thiamine and folic acid. For Falls and weakness she was seen by PT who recommended STR Attending Attestation: Patient seen and examined independently and I was present during sanchez portion of E/M service. Agree with CLAIR Calzada's history, physical, assessment, and plan. <CLAIR Combs - Last Filed: 07/25/20 14:44> Time Spent with Patient Time attestation: Total time spent providing and/or coordinating discharge services: <CLAIR Combs - Last Filed: 07/25/20 14:44> Discharge coordination time: Greater than 30 minutes <CLAIR Combs - Last Filed: 07/25/20 14:44> Quality: Stroke Does the patient have a stroke diagnosis?: No <CLAIR Combs - Last Filed: 07/25/20 14:44> Physical Exam Vital Signs: Vital Signs: Last Vital Signs Temp 97.6 F 07/25/20 11:54 Pulse 81 07/25/20 11:54 Resp 18 07/25/20 07:56 BP 140/67 H 07/25/20 11:54 Pulse Ox 96 07/25/20 11:54 Body Mass Index 24.9 <CLAIR Combs - Last Filed: 07/25/20 14:44> Const: General: alert and awake <CLAIR Combs - Last Filed: 07/25/20 14:44> Nutritional Appearance: well nourished <CLAIR Combs - Last Filed: 07/25/20 14:44> HENMT: Head: Yes normocephalic and Yes atraumatic <CLAIR Combs - Last Filed: 07/25/20 14:44> Eyes: Sclerae: sclerae normal <CLAIR Combs - Last Filed: 07/25/20 14:44> Chest: Chest palpation & inspection: normal inspection of the chest <CLAIR Combs - Last Filed: 07/25/20 14:44> Resp: Other: Scattered wheezing <CLAIR Combs - Last Filed: 07/25/20 14:44> Effort & Inspection: normal respiratory effort and no respiratory distress <CLAIR Combs - Last Filed: 07/25/20 14:44> Cardio: Rate: regular rate <CLAIR Combs - Last Filed: 07/25/20 14:44> Rhythm: regular rhythm <CLAIR Combs - Last Filed: 07/25/20 14:44> GI: Palpation (GI): Soft to palpation and nontender <CLAIR Combs - Last Filed: 07/25/20 14:44> Neuro: Cranial nerves: Yes CN's II-XII intact bilaterally and Yes Bilaterally intact EOM present <CLAIR Combs - Last Filed: 07/25/20 14:44> Extrem: Other: no edema <CLAIR Combs - Last Filed: 07/25/20 14:44> DS: Data Data Completed and Pending Labs on day of discharge: Laboratory Results - last 24 hr 07/24/20 07/25/20 07/25/20 05:38 05:44 05:44 Smear Path Review SEE NOTE Sodium 140 Potassium 4.0 Chloride 101 Carbon Dioxide 33 H Anion Gap 10 L BUN 6 L Creatinine 0.49 L Estim Creat Clear Calc 119.4 Estimated GFR > 60 Random Glucose 77 D Calcium 8.0 L Magnesium 1.9 Total Bilirubin 0.9 Direct Bilirubin 0.7 H AST 68 H ALT 30 Alkaline Phosphatase 109 Total Protein 5.1 L Albumin 2.9 L Preliminary micro results at discharge 07/23/20 17:43 Blood Culture - Preliminary Blood - Venous No growth after 24 hours. 07/23/20 17:48 Blood Culture - Preliminary Blood - Venous No growth after 24 hours. <CLAIR Combs - Last Filed: 07/25/20 14:44> Imaging CT scan - head: Radiologist's impression: ITS Impressions Head CT 07/23/20 16:39 IMPRESSION: No acute intracranial pathology. Chest X-Ray 07/23/20 16:40 IMPRESSION: No evidence for acute disease in the chest. Abdomen/Pelvis CT 07/23/20 19:18 IMPRESSION: Diffuse fatty infiltration of the liver without focal hepatic lesion nor biliary ductal dilatation. 0.8 cm cystic change in the anterior pancreatic tail difficult to define further on this study. Correlation with dedicated dynamic liver MRI/MRCP would be recommended to evaluate further. Extensive diverticulosis but no evidence for diverticulitis. Abdomen MRI 07/24/20 18:54 IMPRESSION: Subcentimeter T2 bright nonenhancing cyst in the pancreatic tail. This is too small to characterize further. I do not appreciate any obvious solid component, nodularity, or enhancement. There are no suspicious or worrisome features. The adjacent pancreatic duct is grossly unremarkable. Follow-up MRI in 2-4 years would be recommended to ensure stability of this subcentimeter pancreatic tail cyst <CLAIR Combs - Last Filed: 07/25/20 14:44> CT scan - abdomen: Radiologist's impression: ITS Impressions Head CT 07/23/20 16:39 IMPRESSION: No acute intracranial pathology. Chest X-Ray 07/23/20 16:40 IMPRESSION: No evidence for acute disease in the chest. Abdomen/Pelvis CT 07/23/20 19:18 IMPRESSION: Diffuse fatty infiltration of the liver without focal hepatic lesion nor biliary ductal dilatation. 0.8 cm cystic change in the anterior pancreatic tail difficult to define further on this study. Correlation with dedicated dynamic liver MRI/MRCP would be recommended to evaluate further. Extensive diverticulosis but no evidence for diverticulitis. Abdomen MRI 07/24/20 18:54 IMPRESSION: Subcentimeter T2 bright nonenhancing cyst in the pancreatic tail. This is too small to characterize further. I do not appreciate any obvious solid component, nodularity, or enhancement. There are no suspicious or worrisome features. The adjacent pancreatic duct is grossly unremarkable. Follow-up MRI in 2-4 years would be recommended to ensure stability of this subcentimeter pancreatic tail cyst <CLAIR Combs - Last Filed: 07/25/20 14:44> Discharge Plan Discharge Patient Disposition: [facility] <CLAIR Combs - Last Filed: 07/25/20 14:44> Discharge Diagnosis: Acute respiratory failure with hypoxia Prolonged QT Acute COPD exacerbation UTI Pancreatic cyst Hypokalemia, hypo magnesemia <CLAIR Combs - Last Filed: 07/25/20 14:44> Acute respiratory failure with hypoxia Prolonged QT Acute COPD exacerbation UTI Pancreatic cyst Hypokalemia, hypo magnesemia <Chino Gracia MD - Last Filed: 07/28/20 08:15> Referrals: [facility] [Outside] - 1 Week Kalin Sanchez MD [Physician] - 1 Week Gagandeep Amor MD [Primary Care Provider] - 1 Week <CLAIR Combs - Last Filed: 07/25/20 14:44> Discharge Medications: New prednisone 20 mg tablet 20 mg PO DAILY 5 Days Qty: 5 RF: 0 cefuroxime axetil 500 mg tablet 500 mg PO BID 5 Days Qty: 10 RF: 0 ipratropium-albuterol 0.5 mg-3 mg(2.5 mg base)/3 mL solution for nebulization 3 ml inhalation Q4-6H PRN (Reason: shortness of breath or wheezing) Qty: 3 RF: 0 thiamine HCl (vitamin B1) 100 mg tablet 100 mg PO DAILY 30 Days Qty: 30 RF: 0 folic acid 1 mg tablet 1 mg PO DAILY 30 Days Qty: 30 RF: 0 nicotine 14 mg/24 hr patch 24 hour 1 patch transdermal DAILY Qty: 7 RF: 0 Changed lorazepam 1 mg tablet 1 mg PO BID PRN (Reason: anxiety) Qty: 10 RF: 0 No Action (DME) cane Device See Rx Instructions .ROUTE .MEDSUPPLY Qty: 1 RF: 0 <CLAIR Combs - Last Filed: 07/25/20 14:44> Discharge Orders: Discharge Order (Routine); Ordered 07/25/20 Ordered By: Rachel Cantu <CLAIR Combs - Last Filed: 07/25/20 14:44> Activity on Discharge: As tolerated <CLAIR Combs - Last Filed: 07/25/20 14:44> As tolerated <Chino Gracia MD - Last Filed: 07/28/20 08:15> Stand Alone Forms: Patient Portal Discharge page <CLAIR Combs - Last Filed: 07/25/20 14:44> Care Plan Goals: See below <CLAIR Combs - Last Filed: 07/25/20 14:44> Health Concerns: UTI Presumed COPD exacerbation Prolonged QT/EKG changes Pancreatic cyst Alcohol use <CLAIR Combs - Last Filed: 07/25/20 14:44> Plan of Treatment: UTI-complete entire course of antibiotics Shortness of breath thought to be secondary to undiagnosed COPD. Complete course of steroids. Use DuoNeb updrafts as needed. Will need pulmonology follow-up and formal PFTs as outpatient. Please call to schedule an appointment with pulmonology. Pancreatic cyst - no intervention required at this time. will need repeat imaging in 2-4 years Please completely abstain from alcohol use EKG changes- Please call to schedule follow-up appointment with cardiology. Will need outpatient echocardiogram. Prolonged QT- please avoid all QT prolonging medications <CLAIR Combs - Last Filed: 07/25/20 14:44> Assessment: See discharge summary <CLAIR Combs - Last Filed: 07/25/20 14:44> Discharge Date/Time: 07/25/20 04:45 <CLAIR Combs - Last Filed: 07/25/20 14:44>
--- NOTE | 2020-07-25 15:43 | MHC.CM.PN ---
pt accepted a bed offer from [facility] and will DC there today at 1600 hours via [facility]LS
[2020-07-26 11:36] LABS: Carbohydrate Antigen 19-9 42 U/mL (<34)
== END 2020-07-25 04:45 | disposition skilled nursing facility (03) | DRG 463 ==
LOC: HO.ED 21:32 → HO.EDOVER 07-24 00:30 → HO.IMC 07-24 02:50
PROVIDERS: Internal Medicine; Nurse Practitioner Family; Physician Assistant Medical; Admitting Provider Internal Medicine; Emergency Provider Emergency Medicine; PCP Internal Medicine; Visit Provider Family Medicine
DX: N39.0 Urinary tract infection, site not specified (principal); J96.01 Acute respiratory failure with hypoxia; K86.2 Cyst of pancreas; E83.42 Hypomagnesemia; E87.6 Hypokalemia; J44.1 Chronic obstructive pulmonary disease with (acute) exacerbation; F10.10 Alcohol abuse, uncomplicated; F41.9 Anxiety disorder, unspecified; R94.31 Abnormal electrocardiogram [ECG] [EKG]; F17.210 Nicotine dependence, cigarettes, uncomplicated; Z71.6 Tobacco abuse counseling; Z20.822 Contact with and (suspected) exposure to COVID-19; Z79.899 Other long term (current) drug therapy
CPT/HCPCS: 36415; 70450; 71046; 74178; 74183; 80048; 80076; 80307; 80320; 81001; 81003; 82550; 82607; 82746; 83605; 83690; 83735; 84484; 85025; 85610; 86301; 87040; 87086; 87088; 87186; 87635; 93005; 94640; 96365; 96366; 96367; 96368; 96375; 97110; 97162; 99285; A9585; J0696; J2930; J3475; Q9967

== ENCOUNTER → 2020-08-06 14:28 | Outpatient (BNVA) | payer OTHER, SELFPAY | PROVIDERS: PCP Internal Medicine; Visit Provider Internal Medicine | DX: J44.1 Chronic obstructive pulmonary disease with (acute) exacerbation (principal); J96.01 Acute respiratory failure with hypoxia; R41.89 Other symptoms and signs involving cognitive functions and awareness; F17.200 Nicotine dependence, unspecified, uncomplicated; Z79.899 Other long term (current) drug therapy; Z71.6 Tobacco abuse counseling | CPT/HCPCS: 99202 ==

== ENCOUNTER 2020-09-29 12:52 | Outpatient (REF) | payer OTHER, SELFPAY ==
--- NOTE | 2020-09-29 17:12 | PFT_ITS ---
INDICATION: COPD. SPIROMETRY: The FEV1 to FVC of 80% with an FEV1 of 2.46, which is 92% predicted and an FVC of 3.08 L, which is 92% predicted. No significant response to bronchodilators noted. Maximum voluntary ventilation 82% predicted. LUNG VOLUMES: Total lung capacity 112% predicted with residual volume 129% predicted, and an expiratory reserve volume of 49% predicted. DIFFUSION CAPACITY: DLCO 84% predicted. COMPARISONS: None. INTERPRETATION: No obstructive nor restrictive ventilatory defects identified. No significant response to bronchodilators noted. Normal maximum voluntary ventilation. Lung volumes demonstrating significant air trapping and a trend of hyperinflation. In addition to that, the patient has a normal diffusion capacity. Clinical correlation warranted. Dewayne Bernabe MD MR/MODL / [id number]
== END 2020-09-29 12:53 | disposition home or self-care (01) ==
LOC: HO.RESP 12:52
PROVIDERS: PCP Internal Medicine; Visit Provider Internal Medicine
DX: J44.1 Chronic obstructive pulmonary disease with (acute) exacerbation (principal); F17.200 Nicotine dependence, unspecified, uncomplicated
CPT/HCPCS: 94060; 94727; 94729

== ENCOUNTER → 2020-10-08 14:25 | Outpatient (BNVA) | payer OTHER, SELFPAY | PROVIDERS: PCP Internal Medicine; Visit Provider Internal Medicine | DX: J96.01 Acute respiratory failure with hypoxia (principal); F17.200 Nicotine dependence, unspecified, uncomplicated | CPT/HCPCS: 99212 ==

== ENCOUNTER 2021-01-19 15:18 | Outpatient (REF) | payer OTHER, SELFPAY ==
--- NOTE | ~2021-01-19 | MM_ITS ---
EXAMINATION: MM SCREENING DIGITAL BREAST TOMOSYNTHESIS, BILATERAL CLINICAL INFORMATION: Screening. Asymptomatic. The lifetime risk of breast cancer based on the Tyrer-Cuzick Model is 7%. COMPARISON: Mammography: 12/20/2019 (baseline) TECHNIQUE: Digital breast tomosynthesis is performed in both the craniocaudal and mediolateral oblique views along with computer-aided detection (CAD). Synthesized 2D images are generated from the tomosynthesis. FINDINGS: There are scattered areas of fibroglandular density (ACR BI-RADS breast composition Category b). There are no significant masses, abnormal calcifications, or other abnormalities. Parenchymal pattern is similar to previous baseline exam. The axilla and skin contours are unremarkable. MM/MM tomosynthesis screening BI IMPRESSION: No mammographic evidence of malignancy. ASSESSMENT: BI-RADS 1: Negative RECOMMENDATION: Routine annual mammography screening. This patient's information was entered into a reminder system with a target due date for their next mammogram.
== END 2021-01-19 15:19 | disposition home or self-care (01) ==
LOC: HO.MAMMO 15:18
PROVIDERS: Visit Provider Internal Medicine
DX: Z12.31 Encounter for screening mammogram for malignant neoplasm of breast (principal)
CPT/HCPCS: 77063; 77067

== ENCOUNTER 2021-06-23 11:28 | Outpatient (REF) | payer OTHER, SELFPAY ==
[2021-06-23 12:27] LABS: Basophils Absolute Auto 0.2 X10*3/uL (0.0-0.2); Basophils Percent Auto 2.6 % (0-2); Eosinophils Absolute Auto 0.8 X10*3/uL (0.0-0.4); Eosinophils Percent Auto 12.2 % (0-4); Hematocrit 37.9 % (37.0-47.0); Hemoglobin 12.3 g/dl (12.0-16.0); Imm Gran Abs Auto 0.01 X10*3/uL (0.00-0.03); Imm Gran Pct Auto 0.2 % (0.0-0.4); Lymphocytes Absolute Auto 2.4 X10*3/uL (1.2-4.9); Lymphocytes Percent Auto 38.4 % (20-40); MANUAL DIFF FLAG SCAN; Mean Corpuscular HGB Conc 32.5 g/dl (31.0-35.0); Mean Corpuscular Hemoglobin 32.5 pg (27.0-33.0); Monocytes Absolute Auto 0.3 X10*3/uL (0.1-1.2); Monocytes Percent Auto 5.3 % (2-11); Neutrophils Absolute Auto 2.6 x10*3/uL (2.0-8.3); Neutrophils Percent Auto 41.3 % (45-73); Platelet Count 338 X10*3/uL (160-400); Red Blood Count 3.79 X10*6/uL (4.20-5.50); Red Cell Distribution Width 14.1 % (11.0-16.0); SCAN SMEAR FLAG 1; White Blood Count 6.3 X10*3/uL (4.8-10.8)
[2021-06-23 12:51] LABS: Anion Gap 14 (12-20); Blood Urea Nitrogen 10 mg/dL (9-16); Calcium 9.7 mg/dL (8.4-10.2); Carbon Dioxide 29 mmol/L (22-29); Chloride 103 mmol/L (96-108); Estimated Glomerular Filt Rate > 60; Glucose Random 96 mg/dL (60-115); Magnesium 1.7 mg/dL (1.6-2.6); Potassium 4.8 mmol/L (3.3-5.1); Sodium 141 mmol/L (135-145)
[2021-06-23 12:54] LABS: SLIDE REVIEW VERIFIED
== END 2021-06-23 11:29 | disposition home or self-care (01) ==
LOC: HO.LAB 11:28
PROVIDERS: PCP Internal Medicine; Visit Provider Internal Medicine
DX: Z00.00 Encounter for general adult medical examination without abnormal findings (principal); E83.42 Hypomagnesemia; R51.9 Headache, unspecified
CPT/HCPCS: 36415; 80048; 83735; 85025

== ENCOUNTER 2021-08-11 12:31 | Outpatient (RCR) | payer OTHER, SELFPAY ==
[2021-08-11 13:05] VITALS: BP 101/69; PULSE 65
== END 2021-08-14 15:13 | disposition home or self-care (01) ==
LOC: HO.PT 12:31
PROVIDERS: PCP Internal Medicine; Visit Provider Physician Assistant
DX: M54.50 Low back pain, unspecified (principal)
CPT/HCPCS: 97161; 97530

== ENCOUNTER 2021-12-31 09:24 | Outpatient (REF) | payer OTHER, SELFPAY ==
--- NOTE | ~2021-12-31 | XR_ITS ---
EXAMINATION: XR CHEST CLINICAL INFORMATION: Cough COMPARISON: None TECHNIQUE: 2 views of the chest were obtained. FINDINGS: No significant abnormality is noted involving the heart, lungs, mediastinum, bony thorax or soft tissues. XR/XR chest 2V IMPRESSION: Unremarkable examination.
[2021-12-31 09:47] LABS: MANUAL DIFF FLAG NO
[2021-12-31 10:11] LABS: Basophils Absolute Auto 0.1 X10*3/uL (0.0-0.2); Basophils Percent Auto 1.5 % (0-2); Eosinophils Absolute Auto 0.4 X10*3/uL (0.0-0.4); Eosinophils Percent Auto 6.5 % (0-4); Hematocrit 36.8 % (37.0-47.0); Hemoglobin 11.9 g/dl (12.0-16.0); Imm Gran Abs Auto 0.02 X10*3/uL (0.00-0.03); Imm Gran Pct Auto 0.4 % (0.0-0.4); Lymphocytes Absolute Auto 1.1 X10*3/uL (1.2-4.9); Mean Corpuscular HGB Conc 32.3 g/dl (31.0-35.0); Mean Corpuscular Hemoglobin 31.8 pg (27.0-33.0); Mean Corpuscular Volume 98.4 fL (80.0-98.0); Mean Platelet Volume 10.2 fL (9.4-12.3); Monocytes Absolute Auto 0.8 X10*3/uL (0.1-1.2); Monocytes Percent Auto 15.1 % (2-11); Neutrophils Percent Auto 56.5 % (45-73); Platelet Count 263 X10*3/uL (160-400); Red Blood Count 3.74 X10*6/uL (4.20-5.50); White Blood Count 5.4 X10*3/uL (4.8-10.8)
[2021-12-31 10:51] LABS: Amylase 321 U/L (28-100); Anion Gap 15 (12-20); Blood Urea Nitrogen 7 mg/dL (9-16); Calcium 9.2 mg/dL (8.4-10.2); Carbon Dioxide 31 mmol/L (22-29); Chloride 97 mmol/L (96-108); Estimated Glomerular Filt Rate > 60; Glucose Random 103 mg/dL (60-115); Potassium 3.7 mmol/L (3.3-5.1); Sodium 139 mmol/L (135-145)
[2021-12-31 11:07] LABS: Lipase 1136 U/L (8-78)
== END 2021-12-31 09:25 | disposition home or self-care (01) ==
LOC: HO.LAB 09:24
PROVIDERS: PCP Internal Medicine; Visit Provider Internal Medicine
DX: R10.9 Unspecified abdominal pain (principal); R05.9 Cough, unspecified; R51.9 Headache, unspecified; Z13.0 Encounter for screening for diseases of the blood and blood-forming organs and certain disorders involving the immune mechanism
CPT/HCPCS: 36415; 71046; 80048; 82150; 83690; 85025

== ENCOUNTER 2021-12-31 15:35 | Emergency (ER) | payer OTHER, SELFPAY ==
--- NOTE | ~2021-12-31 | CT_ITS ---
EXAMINATION: CT ABDOMEN AND PELVIS WITH CONTRAST CLINICAL INFORMATION: Pancreatitis, pain COMPARISON: 07/23/2020 CT abdomen pelvis MR abdomen 07/06/2020 TECHNIQUE: Multidetector volumetric images were obtained from the superior aspect of the liver through the pubic symphysis following administration 85 mL of Omnipaque 350 intravenous contrast. Sagittal and coronal reformatted images were obtained on the technologist's workstation. Oral contrast: No This CT examination was performed using dose optimization techniques as appropriate, variously including the following: *Automated exposure control *Adjustment of mA and/or kV according to patient size (this includes techniques or standardized protocols for targeted exams where dose is matched to indication/reason for exam; i.e. extremities or head) *Use of iterative reconstruction technique DLP: 92 mGy-cm FINDINGS: LUNG BASES: Unremarkable. ABDOMINAL AND PELVIC WALL: Tiny fat-containing umbilical hernia. Midline ventral laparotomy scar. LIVER AND BILIARY TREE: Hypoattenuating hepatic parenchyma compatible with hepatic steatosis decreased from prior. GALLBLADDER: Unremarkable. PANCREAS: Numerous pancreatic calcifications which could be seen in the setting of chronic pancreatitis. The pancreatic duct is dilated to 1.3 cm, new from prior. There is diffuse peripancreatic inflammatory fat stranding compatible with acute interstitial pancreatitis. A 1 cm calcification in the pancreatic head may be intraluminal within the pancreatic duct. No loss of pancreatic enhancement. Few subcentimeter low-attenuation cystic lesions in the pancreas which appear contiguous with the pancreatic duct may reflect dilated sidebranches or tiny pseudocysts. SPLEEN: Calcified granulomas in the spleen. ADRENAL GLANDS: Unremarkable. KIDNEYS AND URETERS: Bosniak 1 left upper pole benign appearing renal cyst, no imaging follow-up recommended. GASTROINTESTINAL TRACT: Colonic diverticulosis without evidence of diverticulitis. Normal appendix. VASCULAR: Unremarkable. LYMPH NODES/PERITONEUM: No lymphadenopathy. FREE FLUID: Small volume free fluid with no definite organized fluid collections. BLADDER: Unremarkable. PELVIC VISCERA: Artifact from hip arthroplasties limits evaluation of the pelvis. OSSEOUS STRUCTURES: Status post bilateral total hip arthroplasties. Minimal grade 1 stepwise multilevel retrolisthesis of the lumbar spine. CT/CT abdomen pelvis w IV con IMPRESSION: 1. There is diffuse peripancreatic inflammatory fat stranding and trace free fluid compatible with acute interstitial pancreatitis. No loss of pancreatic enhancement to suggest pancreatic necrosis. 2. Numerous pancreatic calcifications which could be seen in the setting of chronic pancreatitis. The pancreatic duct is dilated to 1.3 cm, new from prior. A 1 cm calcification in the pancreatic head may be intraluminal within the pancreatic duct. Few subcentimeter low-attenuation cystic lesions in the pancreas which appear contiguous with the pancreatic duct new from prior may reflect dilated sidebranches or tiny pseudocysts. Given the pancreatic duct dilatation consider GI referral for further evaluation and contrast enhanced MR/MRCP could be obtained for further evaluation. 3. Hepatic steatosis decreased from prior.
[2021-12-31 15:38] VITALS: BP 129/75; PULSE 74; RESP 18; TEMP 36.1; O2SAT 96; BMI 23.2
--- OUTSIDE RECORDS SUMMARY | 2021-12-31 18:34 | XMS_ITS ---
:1965 Author Care Team Providers Name Role Phone ADONIS DUNHAM MD Primary Care Provider [phone] [facility] ([facility]) OTHER [phone] Allergies Code Code System Name Reaction Severity Status Onset 7231 RxNorm Naproxen Nausea ? Active ? Medications No Medications Reported Notes: medication has been reviewed-se e MAR for up to date list Problems Name Status Onset Date Source ? Anxiety Active 07/28/2020 ? Alcohol Abuse Active 07/28/2020 ? Smoker Active 07/28/2020 ? Chronic Obstructive Lung Disease Active 07/28/2020 ? Cyst of Pancreas Active 07/28/2020 ? Acute Urinary Tract Infection Active 07/28/2020 ? Osteoarthritis Active 07/28/2020 ? Falls Active 07/28/2020 ? Acute Hypoxemic Respiratory Failure Active 07/28/2020 ? Transient Altered Mental Status Active 08/11/2020 ? Peripheral Nerve Disease Active 08/29/2020 ? Pain in Right Hip Joint Active 11/03/2020 ? Procedures Date Name Performed by ? ? Section Information not avai lable Notes: x 3 Results Lab Results None recorded. Past Encounters 11/11/2020 Peripheral Nerve Disease; Chronic Obstru ctive Lung Disease; Falls; Alcohol Abuse; Cyst of Pancreas ANA Musa: [address] [place] [address], [place] [phone], Ph. 11/04/2020 Peripheral Nerve Disease; Chronic Obstru ctive Lung Disease; Falls; Alcohol Abuse ANA Espinoza: [address] [place] [phone], Ph. 11/03/2020 Pain in Right Hip Joint ANA Musa: [address] [place] [phone], Ph. 10/20/2020 Peripheral Nerve Disease ANA Espinoza: [address] [place] [phone], Ph. 10/15/2020 Chronic Obstructive Lung Disease; Cyst o f Pancreas; Peripheral Nerve Disease; Alcohol Abuse Elzbieta Mujica MD: [address] [place] [phone], Ph. 10/06/2020 Peripheral Nerve Disease Marisa Paulino [facility]: [address] [place] [address], [place] [address], Ph. 09/23/2020 Chronic Obstructive Lung Disease; Falls; Alcohol Abuse; Peripheral Nerve Disease Margarita Lewis [facility]: [address] [place] [phone], Ph. 09/03/2020 Chronic Obstructive Lung Disease; Falls; Alcohol Abuse; Peripheral Nerve Disease TRUONG EspinozaP: [address] [place] [phone], Ph. 08/29/2020 Peripheral Nerve Disease TRUONG MusaP: [address] [place] [address], [place] [address], Ph. 08/25/2020 Peripheral Nerve Disease Margarita Lewis [facility]: [address] [place] [phone], Ph. 08/22/2020 Chronic Obstructive Lung Disease; Falls; Cyst of Pancreas; Anxiety; Alcohol Abuse; Smoker; Osteoarthritis; Electrocardiogram Abnormal; Acute Urinary Tract Infection Mahnaz Lyles MD: [address] [place] [phone], Ph. 08/20/2020 Chronic Obstructive Lung Disease; Falls; Cyst of Pancreas; Anxiety; Alcohol Abuse; Smoker; Osteoarthritis Margarita ReynaTRUONG brookeP: [address] [place] [phone], Ph. 08/18/2020 Acute Hypoxemic Respiratory Failure; Fal ls; Chronic Obstructive Lung Disease; Cyst of Pancreas; Anxiety; Alcohol Abuse; Smoker; Osteoarthritis; Acute Urinary Tract Infection; Transient Altered Mental Status Magui Armendariz [facility]: [address] [place] [phone], Ph. 08/14/2020 Acute Hypoxemic Respiratory Failure; Fal ls; Chronic Obstructive Lung Disease; Cyst of Pancreas; Anxiety; Alcohol Abuse; Smoker; Osteoarthritis; Acute Urinary Tract Infection; Transient Altered Mental Status ANA Hernández: [address] [place] [address], Ph. 08/11/2020 Transient Altered Mental Status; Smoker; Falls ANA Hernández: [address] [facility] [place] [address], Ph. 08/05/2020 Anxiety; Falls; Smoker; Chronic Obstruct angel Lung Disease ANA Hernández: [address] [facility] [place] [address], Ph. 07/29/2020 Chronic Obstructive Lung Disease; Electr ocardiogram Abnormal; Acute Urinary Tract Infection; Cyst of Pancreas; Falls; Anxiety; Alcohol Abuse; Smoker; Osteoarthritis; Abnormal Weight Loss Trell Solorzano MD: [address] [place] [address], Ph. 07/28/2020 Acute Hypoxemic Respiratory Failure; Fal ls; Chronic Obstructive Lung Disease; Acute Urinary Tract Infection; Cyst of Pancreas; Anxiety; Alcohol Abuse; Smoker; Osteoarthritis ANA Hernández: [address] [facility] [place] [address], Ph. Social History Tobacco Smoking Status Heavy Tobacco Smoker (1/2 pack per da y) Vaccine List Notes: None on file with PCP Plan of Care Reminders Provider Appointments None recorded. ? ? Lab None recorded. ? ? Referral None recorded. ? ? Procedures None recorded. ? ? Surgeries None recorded. ? ? Imaging None recorded. ? ? Vitals 11/11/2020 02:22PM Discharge Summary Height Blood Pressure 5 ft 3 in 112/75 mm[Hg] 11/04/2020 01:58PM Routine Rounding Visit Height Blood Pressure 5 ft 3 in 110/68 mm[Hg] 11/03/2020 01:50PM Acute Rounding Visit Height Blood Pressure 5 ft 3 in 100/68 mm[Hg] 10/20/2020 02:22PM Acute Rounding Visit Height Blood Pressure 5 ft 3 in 89/66 mm[Hg] 10/15/2020 07:23AM Telemed Routine Rounding Height Blood Pressure 5 ft 3 in 118/65 mm[Hg] 10/06/2020 03:35PM Acute Rounding Visit Height Blood Pressure 5 ft 3 in 120/77 mm[Hg] 09/23/2020 03:00PM Routine Rounding Visit Height Blood Pressure 5 ft 3 in 102/75 mm[Hg] 09/03/2020 09:01AM Acute Rounding Visit Height Blood Pressure 5 ft 3 in 130/82 mm[Hg] 08/29/2020 03:33PM Acute Rounding Visit Height 5 ft 3 in 08/25/2020 01:50PM Acute Rounding Visit Height Blood Pressure 5 ft 3 in 115/76 mm[Hg] 08/22/2020 07:04PM Admitting H&P Height Weight BMI Blood Pressure 5 ft 3 in 128 lbs 22.7 kg/m2 121/63 mm[Hg] 08/20/2020 12:33PM Initial Intake Note Blood Pressure 133/94 mm[Hg] 08/18/2020 08:25AM Discharge Summary Weight 129.6 lbs 08/14/2020 10:10AM Acute Rounding Visit Blood Pressure 135/80 mm[Hg] 08/11/2020 09:13AM Acute Rounding Visit Weight 131.2 lbs 08/05/2020 08:23AM Acute Rounding Visit Weight Blood Pressure 132.4 lbs 134/54 mm[Hg] 07/29/2020 12:22PM Admitting H&P Blood Pressure 123/82 mm[Hg] 07/28/2020 08:45AM Initial Intake Note Blood Pressure 122/66 mm[Hg]
--- OUTSIDE RECORDS SUMMARY | 2021-12-31 18:34 | XMS_ITS | Continuity of Care Document ---
:1965 Author Organization [facility] Address [address] [place] [address]- Care Team Providers Name Role Phone Gagandeep Amor MD Primary Care Physician Encounter [facility] Date(s): 08/06/21 - 09/05/[address] [address]- Attending Physician: Bianca Rice Admitting Physician: Bianca Rice Referring Physician: trBianca Allergies, Adverse Reactions, Alerts Substance Reaction Severity Status naproxen Active Medications acetaminophen 325 mg oral tablet 650 mg, By Mouth, Every 6 hours, PRN, May take OTC not to exceed 3000 mg/day, Refills 0, Maintenance, Pain , Mild, 06/02/21 10:01:00 EDT, Partial fill upon patient request if the prescription is for a schedule II opioid drug. Start Date: 06/02/21 Status: OrderedAspirin Tablet 325 mg, By Mouth, 2 times a day, Refills 0, Maintenance, 08/18/21 11:24:00 EDT, Partial fill upon patient request if the prescription is for a schedule II opioid drug. Start Date: 08/18/21 Status: OrderedColace Capsule 100 mg, 1, capsule, By Mouth, 2 times a day, Refills 0, Maintenance, 08/18/21 11:24:00 EDT, Partial fill upon patient request if the prescription is for a schedule II opioid drug. Start Date: 08/18/21 Status: Orderedgabapentin 300 mg oral capsule 600 mg, 2, capsule, By Mouth, 3 times a day, # 270 capsule, Refills 0, Maintenance, 05/19/21 13:57:00 EDT, Partial fill upon patient request if the prescription is for a schedule II opioid drug. Start Date: 05/19/21 Status: OrderedMaalox Plus Liquid 30 mL, By Mouth, Every 4 hours, PRN Other, Heartburn, 0 Refills, Maintenance, 08/18/21 11:24:00 EDT,Suspension, Partial fill upon patient request if the prescription is for a schedule II opioid drug. Start Date: 08/18/21 Status: Orderedmeloxicam 15 mg oral tablet 1 tablet = 15 mg, By Mouth, Daily, # 30 tablet, 0 Refills, Maintenance, 08/18/21 11:25:00 EDT, Tablet, Partial fill upon patient request if the prescription is for a schedule II opioid drug. Start Date: 08/18/21 Stop Date: 09/17/21 Status: OrderedMiraLax Powder 1 pack/packet = 17 Gm, By Mouth, Daily, PRN Constipation, 0 Refills, Maintenance, 08/18/21 11:24:00 EDT, Powder, Partial fill upon patient request if the prescription is for a schedule II opioid drug. Start Date: 08/18/21 Status: OrderedMOM Liquid 30 mL, By Mouth, Daily, PRN Constipation, 0 Refills, Maintenance, 08/18/21 11:24:00 EDT, Suspension,Partial fill upon patient request if the prescription is for a schedule II opioid drug. Start Date: 08/18/21 Status: Orderedpantoprazole 40 mg oral delayed release tablet = 40 mg, By Mouth, Daily, 0 Refills, Maintenance, 08/18/21 11:24:00 EDT, EC Tablet Start Date: 08/18/21 Status: Orderedsenna 187 mg oral tablet 1 tablet = 8.6 mg, By Mouth, Daily at bedtime, PRN as needed for constipation, 0 Refills, Maintenance, 08/18/21 11:24:00 EDT, Tablet, Partial fill upon patient request if the prescription is for a schedule II opioid drug. Start Date: 08/18/21 Status: Ordered Problem List Condition Effective Dates Status Health Status Informant Cough in adult(Confirmed) Active Peripheral neuropathy(Confirmed) Active Sputum production(Confirmed) Active Social History Social History Type Response Smoking Status 5-9 cigarettes (between 1/4 to 1/2 pack)/day in last 30 days; Interested in cessation: Yes; Patient wants NRT during admission No; Other: Has been smoking for 40 years.; entered on: 05/19/21 Sex
--- OUTSIDE RECORDS SUMMARY | 2021-12-31 18:34 | XMS_ITS | Continuity of Care Document ---
:1965 Author Organization [facility] Address [address] [place] [address]- Care Team Providers Name Role Phone Zuleyma CABRERA, Gagandeep Peters Primary Care Physician Encounter 08/20/21 - 08/27/21 [facility] Nurse [facility] [address] [place] [address]- Discharge Disposition: GOALS MET Allergies, Adverse Reactions, Alerts Substance Reaction Severity [...]
--- OUTSIDE RECORDS SUMMARY | 2021-12-31 18:34 | XMS_ITS | Continuity of Care Document ---
:1965 Author Organization [facility] Address [address] [place] [phone]- Care Team Providers Name Role Phone Gagandeep Amor MD Primary Care Physician Encounter [facility] R [id number] Date(s): 04/24/21 - 06/03/[address] [address] Attending Physician: Salvador Toney MD Admitting Physician: Salvador Toney MD Referring Physician: Salvador Toney MD Allergies, Adverse Reactions, Alerts Substance Reaction Severity Status naproxen Active Medications acetaminophen 325 mg oral tablet 650 mg, By Mouth, Every 6 hours, May take OTC not to exceed 3000 mg/day, Refills 0, Maintenance, 06/02/21 10:01:00 EDT, Partial fill upon patient request if the prescription is for a schedule II opioiddrug. Start Date: 06/02/21 Status: OrderedAspirin Tablet 325 mg, By Mouth, 2 times a day, Refills 0, Maintenance, 06/02/21 10:02:00 EDT, Partial fill upon patient request if the prescription is for a schedule II opioid drug. Start Date: 06/02/21 Status: Orderedcelecoxib 200 mg oral capsule 1 capsule = 200 mg, By Mouth, Daily, 0 Refills, Maintenance, 06/02/21 10:02:00 EDT, Capsule, Partialfill upon patient request if the prescription is for a schedule II opioid drug. Start Date: 06/02/21 Status: OrderedColace Capsule 100 mg, 1, capsule, By Mouth, 2 times a day, Refills 0, Maintenance, 06/02/21 10:02:00 EDT, Partial fill upon patient request if the prescription is for a schedule II opioid drug. Start Date: 06/02/21 Status: Orderedgabapentin 300 mg oral capsule 3 capsules, By Mouth, 3 times a day, # 270 capsule, Refills 0, Maintenance, 05/19/21 13:57:00 EDT, Partial fill upon patient request if the prescription is for a schedule II opioid drug. Start Date: 05/19/21 Status: OrderedMiraLax Powder 1 pack/packet = 17 Gm, By Mouth, Daily, PRN Constipation, 0 Refills, Maintenance, 06/02/21 10:02:00 EDT, Powder, Partial fill upon patient request if the prescription is for a schedule II opioid drug. Start Date: 06/02/21 Status: OrderedoxyCODONE 5 mg oral tablet See Instructions, PRN, 1-2 tablet By Mouth Every 4 hours, # 60 tablet, Refills 0, Tot. Refills 0, Acute 06/09/21 10:01:00 EDT, Pain , Severe, 06/02/21 10:00:00 EDT, Instructions Replace Required Details, Route to Pharmacy Electronically, [facility] Start Date: 06/02/21 Stop Date: 06/09/21 Status: Orderedpantoprazole 40 mg oral delayed release tablet = 40 mg, By Mouth, Daily, 0 Refills, Maintenance, 06/02/21 10:02:00 EDT, EC Tablet Start Date: 06/02/21 Status: Orderedsenna 187 mg oral tablet 1 tablet = 8.6 mg, By Mouth, Daily at bedtime, PRN as needed for constipation, 0 Refills, Maintenance, 06/02/21 10:02:00 EDT, Tablet, Partial fill upon patient request if the prescription is for a schedule II opioid drug. Start Date: 06/02/21 Status: OrderedtraMADol 50 mg oral tablet See Instructions, PRN Pain , Mild, 1-2 tablet By Mouth Every 6 hours not to exceed 400 mg/day, # 56 tablet, 0 Refills, Acute 06/09/21 10:00:00 EDT, 06/02/21 10:00:00 EDT, Tablet, [facility], Partial fill upon patient request if the pre... Start Date: 06/02/21 Stop Date: 06/09/21 Status: Ordered Problem List Condition Effective Dates Status Health Status Informant Cough in adult(Confirmed) Active Peripheral neuropathy(Confirmed) Active Sputum production(Confirmed) Active Social History Social History Type Response Smoking Status 5-9 cigarettes (between 4 to 1/2 pack)/day in last 30 days; Interested in cessation: Yes; Patient wants NRT during admission No; Other: Has been smoking for 40 years.; entered on: 05/19/21 Sex
--- OUTSIDE RECORDS SUMMARY | 2021-12-31 18:34 | XMS_ITS | Continuity of Care Document ---
:1965 Author Organization [facility] Address [address] [place] [address]- Care Team Providers Name Role Phone Zuleyma CABRERA, Gagandeep Peters Primary Care Physician Encounter [facility] Date(s): 05/19/21 - 06/18/21 [facility] [address] [place] [address] Attending Physician: Bianca Rice Admitting Physician: Bianca Rice Referring Physician: Bianca Rice Allergies, Adverse Reactions, Alerts Substance Reaction Severity [...] II opioid drug. Start Date: 06/02/21 Status: Orderedpantoprazole 40 mg oral delayed release [...] II opioid drug. Start Date: 06/02/21 Status: Ordered Problem List Condition Effective Dates [...]
--- OUTSIDE RECORDS SUMMARY | 2021-12-31 18:34 | XMS_ITS | Continuity of Care Document ---
:1965 Author Organization [facility] Address [address] [place] [address]- Care Team Providers Name Role Phone Zuleyma CABRERA, Gagandeep Peters Primary Care Physician Encounter [facility] Date(s): 04/24/21 - 05/27/[address] [address] Attending Physician: Salvador Toney MD Referring Physician: Salvador Toney MD Medications gabapentin 300 mg oral capsule 3 capsules, By Mouth, 3 times a day, # 270 capsule, Refills 0, Maintenance, 05/19/21 13:57:00 EDT, Partial fill upon patient request if the prescription is for a schedule II opioid drug. Start Date: 05/19/21 Status: Ordered Problem List Condition Effective Dates [...]
--- OUTSIDE RECORDS SUMMARY | 2021-12-31 18:34 | XMS_ITS | Continuity of Care Document ---
:1965 Author Organization [facility] Vis[facility] Nurse [facility] Address [address] [place] [address]- Care Team Providers Name Role Phone Zuleyma CABRERA, Gagandeep Peters Primary Care Physician Encounter 06/03/21 - 06/12/21 [facility] [address] [place] [address]- Discharge Disposition: GOALS MET Allergies, Adverse Reactions, [...]
--- OUTSIDE RECORDS SUMMARY | 2021-12-31 18:34 | XMS_ITS | Continuity of Care Document ---
:1965 Author Organization [facility] Address [address] [place] [address]- Care Team Providers Name Role Phone Gagandeep Amor MD Primary [id number] Date(s): 06/01/21 - 06/02/[address] [address]- Discharge Disposition: A-Transfer VNA/Home Health Attending Physician: Salvador Toney MD Admitting Physician: [...] schedule II opioiddrug. Start Date: 06/02/21 Status: OrderedAcetaminophen Tablet 650 mg, Tablet, By Mouth, 06/02/21 12:00:00 EDT Start Date: 06/02/21 Stop Date: 06/02/21 Status: CompletedAspirin Tablet 325 mg, By Mouth, 2 times [...] Replace Required Details, Route to Pharmacy Electronically, [facility] Start Date: 06/02/21 Stop Date: 06/09/21 Status: OrderedOxyCODONE IR Tablet 10 mg, Tablet, By Mouth, Every 4 hours, PRN for Pain , Moderate, Routine, 06/01/21 14:15:00 EDT Start Date: 06/01/21 Stop Date: 06/08/21 Status: Orderedpantoprazole 40 mg oral delayed release [...] 06/09/21 10:00:00 EDT, 06/02/21 10:00:00 EDT, Tablet, [facility], Partial fill upon patient request if the pre... Start Date: 06/02/21 Stop Date: 06/09/21 Status: Ordered Problem List Condition Effective Dates Status Health Status Informant Cough in adult(Confirmed) Active Peripheral neuropathy(Confirmed) Active Sputum production(Confirmed) Active Results Radiology Reports Exam Date Time Procedure Performing Provider Status 06/01/21 11:10 PM Pelvis 1 or 2 Views Ludy Pitts; Auth (Veri fiemmanuel) Notes:(Pelvis 1 or 2 Views) Reason For Exam: Postop Prosthesis;Postop Prosthesis RESULT: Pelvis 1 or 2 Views Pelvis 1 or 2 Views Reason: Postop Prosthesis; Clinical Question(s): Status of Hip Prosthesis; Special Instructions: RIGHT Hip - Do today at 2200 COMPARISON: None. FINDINGS: Single early postoperative frontal view of the pelvis obtained of the right hip arthroplasty. There is expected adjacent subcutaneous emphysema and evidence of a wound VAC. No evidence of hardware complication or periprosthetic fracture. Mild to moderate left hip degenerative changes are present. IMPRESSION: Expected early postoperative appearance following right hip arthroplasty without evidence of complication. WSN: [id number] Ordering Physician: Cecilia Szymanski Dictated By: Timoteo Mays MD Dictated Date/Time: 06/01/21 11:57 p Reviewed By: Timoteo Mays MD Signed By: Timoteo Mays MD Signed Date/Time: 06/01/21 11:57 pm Transcribed By: KIKE Transcribed Date/Time: 06/01/21 11:57 pm Exam Date Time Procedure Performing Provider Status 06/01/21 1:10 PM C-Arm < 1 Hour Kim Paez; Sherlyn (Dagoifie d) Notes:(C-Arm < 1 Hour) Reason For Exam: osteoarthritis, right total hip replacement, anterior approachRESULT: C-Arm < 1 Hour Pelvis 1 or 2 Views, C-Arm < 1 Hour INDICATION: Reason: osteoathritis, right anterior hip, anterior approach COMPARISONS: None TECHNIQUE: Fluoroscopy support was provided. There was no radiologist in attendance. FLUOROSCOPY TIME: 8 seconds EXPOSURE: 0.3602 Gycm2 TECHNOLOGIST TIME: 20 minutes FINDINGS: Multiple images of the pelvis obtained by the portable image intensifier in the operating room are available for interpretation. There is evidence of a cementless right total hip arthroplasty appearing with the acetabular and femoral components in excellent position. Please refer to the operative report for more details. IMPRESSION: See above. WSN: [id number] Ordering Physician: Salvador Toney Dictated By: Jose Luis Acosta MD, V Dictated Date/Time: 06/01/21 2:25 pm Reviewed By: Jose Luis Acosta MD, V Signed By: Jose Luis Acosta MD, V Signed Date/Time: 06/01/21 2:25 pm Transcribed By: KIKE Transcribed Date/Time: 06/01/21 2:23 pm Exam Date Time Procedure Performing Provider Status 06/01/21 1:10 PM Pelvis 1 or 2 Views Kim Paez; Sherlyn (Dago ified) Notes:(Pelvis 1 or 2 Views) Reason For Exam: osteoathritis, right anterior hip, anterior approachRESULT: Pelvis 1 or 2 Views Pelvis 1 or 2 Views, C-Arm < 1 Hour INDICATION: Reason: osteoathritis, right anterior hip, anterior approach COMPARISONS: None TECHNIQUE: Fluoroscopy support was provided. There was no radiologist in attendance. FLUOROSCOPY TIME: 8 seconds EXPOSURE: 0.3602 Gycm2 TECHNOLOGIST TIME: 20 minutes FINDINGS: Multiple images of the pelvis obtained by the portable image intensifier in the operating room are available for interpretation. There is evidence of a cementless right total hip arthroplasty appearing with the acetabular and femoral components in excellent position. Please refer to the operative report for more details. IMPRESSION: See above. WSN: [id number] Ordering Physician: Salvador Toney Dictated By: Jose Luis Acosta MD, V Dictated Date/Time: 06/01/21 2:25 pm Reviewed By: Jose Luis Acosta MD, V Signed By: Jose Luis Acosta MD, V Signed Date/Time: 06/01/21 2:25 pm Transcribed By: KIKE Transcribed Date/Time: 06/01/21 2:23 pm Vital Signs Most recent to oldest 1 2 3 [Reference Range]: Height 160 cm 160 cm 160 cm (06/02/21 4:00 PM) (06/02/21 12:09 PM) (06/02/21 8: 13 AM) Weight 59.6 kg 59.6 kg (06/01/21 10:43 AM) (06/01/21 7:28 AM) Oxygen Saturation [94-100 %] 93 % 99 % 95 % *L* (06/02/21 12:09 PM) (06/02/21 6:30 AM) (06/02/21 4:00 PM) Pulse Rate [55-90 bpm] 52 bpm 64 bpm 57 bpm *L* (06/02/21 12:09 PM) (06/02/21 6:30 AM) (06/02/21 4:00 PM) Body Mass Index [18.5-24.99] 23.28 23.28 (06/01/21 10:43 AM) (06/01/21 7:28 AM) Blood Pressure [90-138/55-84 93/67 mm Hg 90/56 mm Hg 93/ 55 mm Hg mm Hg] (06/02/21 4:00 PM) (06/02/21 12:09 PM) (06/02/21 6: 30 AM) Respiratory Rate [16-30 18 br/min 18 br/min 18 br/mi n br/min] (06/02/21 5:34 PM) (06/02/21 4:00 PM) (06/02/21 2:0 0 PM) Temperature [96.8-100.4 DegF] 98.3 DegF 98.6 DegF 97 .7 DegF (06/02/21 4:00 PM) (06/02/21 6:30 AM) (06/02/21 3:0 0 AM) Liters per Minute 2 L/min 2 L/min 6 L/min (06/01/21 2:15 PM) (06/01/21 2:00 PM) (06/01/21 1:3 0 PM) Mode of Delivery (Oxygen) Room air Room air Room a ir (06/02/21 4:00 PM) (06/02/21 12:09 PM) (06/02/21 6: 30 AM) Blood pressure sites Arm, left Arm, left Arm, left (06/02/21 4:00 PM) (06/02/21 12:09 PM) (06/02/21 6: 30 AM) Temperature Route Oral Oral Oral (06/02/21 4:00 PM) (06/02/21 6:30 AM) (06/02/21 3:0 0 AM) Dry Weight 59.6 kg (06/01/21 7:28 AM) Weight Obtained Via Standing scale (06/01/21 7:28 AM) Dry Weight Obtained Via Standing scale (06/01/21 7:28 AM) Social History Social History Type Response Smoking Status 5-9 cigarettes (between 1/4 to 1/2 pack)/day in last 30 days; Interested in cessation: Yes; Patient wants NRT during admission No; Other: Has been smoking for 40 years.; entered on: 05/19/21 Sex
--- OUTSIDE RECORDS SUMMARY | 2021-12-31 18:34 | XMS_ITS | Continuity of Care Document ---
:1965 Author Organization [facility] Address [address] [place] [address]- Care Team Providers Name Role Phone Gagandeep Amor MD Primary Care Physician Encounter [facility] Date(s): 07/07/21 - 09/05/[address] [address] Attending Physician: Salvador Toney MD Admitting [...]
--- OUTSIDE RECORDS SUMMARY | 2021-12-31 18:34 | XMS_ITS | Continuity of Care Document ---
:1965 Author Organization [facility] Address [address] [place] [id number]- Care Team Providers Name Role Phone Gagandeep Amor MD Primary Care Phys[id number] Date(s): 08/17/21 - 08/18/[address] [id number] Discharge Disposition: A-Transfer VNA/Home Health Attending Physician: [...] II opioid drug. Start Date: 06/02/21 Status: OrderedAcetaminophen Tablet 650 mg, Tablet, By Mouth, 08/18/21 10:00:00 EDT Start Date: 08/18/21 Stop Date: 08/18/21 Status: CompletedAspirin Tablet 325 mg, By Mouth, [...] II opioid drug. Start Date: 08/18/21 Status: OrderedoxyCODONE 5 mg oral tablet See Instructions, PRN, Take 1-2 tablets every 4 hours as needed for pain., # 84 tablet, Refills 0, Tot. Refills 0, Acute 08/25/21 8:00:00 EDT, Pain , Mild, 08/18/21 11:22:00 EDT, Instructions Replace Required Details, Route to Pharmacy Electronically,... Start Date: 08/18/21 Stop Date: 08/25/21 Status: OrderedOxyCODONE IR Tablet 10 mg, Tablet, By Mouth, Every 4 hours, PRN for Pain , Moderate, Routine, 08/17/21 15:30:00 EDT Start Date: 08/17/21 Stop Date: 08/24/21 Status: Orderedpantoprazole 40 mg oral delayed release [...] Exam Date Time Procedure Performing Provider Status 08/18/21 8:43 AM Pelvis 1 or 2 Views Huyen Flores ([facility] ed) Notes:(Pelvis 1 or 2 Views) Reason For Exam: Postop ProsthesisRESULT: Pelvis 1 or 2 Views Pelvis 1 or 2 Views single AP view Reason: Postop Prosthesis; Clinical Question(s): Status of Hip Prosthesis; Special Instructions: LEFT Hip - COMPARISON: Intraoperative images 08/17/2021 FINDINGS: Status post total left hip arthroplasty with the prostheses appearing well seated, no fracture or dislocation. There has been remote right hip total arthroplasty. Small amount of residual subcutaneous emphysema seen in the soft tissues on the left. IMPRESSION: Satisfactory appearance status post total left hip arthroplasty without complication. WSN: [id number] Ordering Physician: Azra Dyer Dictated By: Cirilo Carlson MD Dictated Date/Time: 08/18/21 10:34 a Reviewed By: Cirilo Carlson MD Signed By: Cirilo Carlson MD Signed Date/Time: 08/18/21 10:34 am Transcribed By: KIKE Transcribed Date/Time: 08/18/21 10:32 am Exam Date Time Procedure Performing Provider Status 08/17/21 10:52 PM Pelvis 1 or 2 Views Gentry Cui ([facility] ied) Notes:(Pelvis 1 or 2 Views) Reason For Exam: OA, Left Anterior Hip Arthroplasty RESULT: Pelvis 1 or 2 Views Pelvis 1 or 2 Views Reason: OA, Left Anterior Hip Arthroplasty COMPARISON: 06/01/2021. FINDINGS: There is a left hip arthroplasty in progress. The acetabular component appears well situated. There has been proximal femoral osteotomy with a proximal femoral sizing rasp in place. There is expected overlying intraoperative findings. Previous right total hip arthroplasty. IMPRESSION: Right total hip arthroplasty in progress without evidence of immediate complication. WSN: [id number] Ordering Physician: Salvador Toney Dictated By: Sameer Garber MD Dictated Date/Time: 08/18/21 10:26 a Reviewed By: Sameer Garber MD Signed By: Sameer Garber MD Signed Date/Time: 08/18/21 10:26 am Transcribed By: KIKE Transcribed Date/Time: 08/18/21 10:24 am Exam Date Time Procedure Performing Provider Status 08/17/21 3:00 PM C-Arm < 1 Hour Leda Hood ([facility] ied) Notes:(C-Arm < 1 Hour) Reason For Exam: OA Left anterior hip replacmentRESULT: C-Arm < 1 Hour C-Arm < 1 Hour INDICATION: Reason: OA Left anterior hip replacment COMPARISONS: None TECHNIQUE: Fluoroscopy support was provided. There was no radiologist in attendance. FLUOROSCOPY TIME: 8.6 seconds TECHNOLOGIST TIME: 40 minutes FINDINGS: Fluoroscopy support was provided. There was no radiologist in attendance. IMPRESSION: See above. WSN: [id number] Ordering Physician: Salvador Toney Dictated By: Kory Singh MD Dictated Date/Time: 08/18/21 10:10 a Reviewed By: Kory Singh MD Signed By: Kory Singh MD Signed Date/Time: 08/18/21 10:10 am Transcribed By: KIKE Transcribed Date/Time: 08/17/21 8:43 pm Vital Signs Most recent to oldest 1 2 3 [Reference Range]: Height 160 cm 160 cm 160 cm (08/18/21 12:09 PM) (08/18/21 10:41 AM) (08/18/21 9 :36 AM) Weight 61.3 kg 61.3 kg (08/17/21 12:39 PM) (08/17/21 8:19 AM) Oxygen Saturation [94-100 %] 98 % 96 % 95 % (08/18/21 10:41 AM) (08/18/21 7:27 AM) (08/18/21 3: 00 AM) Pulse Rate [55-90 bpm] 68 bpm 74 bpm 65 bpm (08/18/21 12:09 PM) (08/18/21 10:41 AM) (08/18/21 7 :27 AM) Body Mass Index [18.5-24.99] 23.95 23.95 (08/17/21 12:39 PM) (08/17/21 8:19 AM) Blood Pressure [90-138/55-84 96/56 mm Hg 84/53 mm Hg 91/ 59 mm Hg mm Hg] (08/18/21 12:09 PM) *L* (08/18/21 7:27 AM) (08/18/21 10:41 AM) Respiratory Rate [16-30 18 br/min 18 br/min 18 br/mi n br/min] (08/18/21 1:51 PM) (08/18/21 12:51 PM) (08/18/21 11 :50 AM) Temperature [96.8-100.4 99.4 DegF 98.4 DegF 97.6 Deg F DegF] (08/18/21 10:41 AM) (08/18/21 7:27 AM) (08/18/21 3: 00 AM) Liters per Minute 2 L/min 2 L/min 2 L/min (08/17/21 5:45 PM) (08/17/21 5:30 PM) (08/17/21 5:1 5 PM) Mode of Delivery (Oxygen) Room air Room air Room a ir (08/18/21 10:41 AM) (08/18/21 7:27 AM) (08/18/21 3: 00 AM) Blood pressure sites Arm, left Arm, right Arm, left (08/18/21 12:09 PM) (08/18/21 10:41 AM) (08/18/21 7 :27 AM) Temperature Route Oral Oral Oral (08/18/21 10:41 AM) (08/18/21 7:27 AM) (08/18/21 3: 00 AM) Dry Weight 61.3 kg (08/17/21 8:19 AM) Weight Obtained Via Standing scale (08/17/21 8:19 AM) Dry Weight Obtained Via Standing scale (08/17/21 8:19 AM) Social History Social History Type Response Smoking Status 5-9 cigarettes (between 1/4 to 1/2 pack)/day in last 30 days; Interested in cessation: Yes; Patient wants NRT during admission No; Other: Has been smoking for 40 years.; entered on: 05/19/21 Sex
--- OUTSIDE RECORDS SUMMARY | 2021-12-31 18:34 | XMS_ITS | Continuity of Care Document ---
:1965 Author Organization [facility] Address [address] [place] [id number]- Care Team Providers Name Role Phone Gagandeep Amor MD Primary Care Phys[id number] Date(s): 06/01/21 - 07/01/[address] [address]- Attending Physician: Not on Staff, Attending MD Admitting Physician: Not on Staff, Admitting MD Referring Physician: Not on Staff, Referring MD Allergies, Adverse Reactions, Alerts Substance Reaction [...]
[2021-12-31 19:26] LABS: MANUAL DIFF FLAG NO
[2021-12-31 19:27] LABS: Basophils Absolute Auto 0.1 X10*3/uL (0.0-0.2); Basophils Percent Auto 1.6 % (0-2); Eosinophils Absolute Auto 0.3 X10*3/uL (0.0-0.4); Eosinophils Percent Auto 6.1 % (0-4); Hematocrit 36.1 % (37.0-47.0); Hemoglobin 11.7 g/dl (12.0-16.0); Imm Gran Abs Auto 0.03 X10*3/uL (0.00-0.03); Imm Gran Pct Auto 0.6 % (0.0-0.4); Lymphocytes Absolute Auto 1.4 X10*3/uL (1.2-4.9); Lymphocytes Percent Auto 28.1 % (20-40); Mean Corpuscular HGB Conc 32.4 g/dl (31.0-35.0); Mean Corpuscular Hemoglobin 31.7 pg (27.0-33.0); Mean Corpuscular Volume 97.8 fL (80.0-98.0); Mean Platelet Volume 9.8 fL (9.4-12.3); Monocytes Absolute Auto 0.7 X10*3/uL (0.1-1.2); Monocytes Percent Auto 13.8 % (2-11); Neutrophils Absolute Auto 2.5 x10*3/uL (2.0-8.3); Neutrophils Percent Auto 49.8 % (45-73); Platelet Count 270 X10*3/uL (160-400); Red Blood Count 3.69 X10*6/uL (4.20-5.50); Red Cell Distribution Width 18.6 % (11.0-16.0); White Blood Count 5.1 X10*3/uL (4.8-10.8)
[2021-12-31 19:56] LABS: Alanine Aminotransferase 18 U/L (0-31); Albumin Level 3.7 g/dL (3.5-5.0); Alkaline Phosphatase 87 U/L (39-117); Anion Gap 16 (12-20); Aspartate Amino Transferase 25 U/L (5-31); Bilirubin Total 0.6 mg/dL (0.0-1.0); Blood Urea Nitrogen 6 mg/dL (9-16); Calcium 8.9 mg/dL (8.4-10.2); Carbon Dioxide 29 mmol/L (22-29); Chloride 97 mmol/L (96-108); Creatinine Clr Calc Pharmacy 87.6; Estimated Glomerular Filt Rate > 60; Glucose Random 85 mg/dL (60-115); Lipase 658 U/L (8-78); Potassium 3.9 mmol/L (3.3-5.1); Sodium 138 mmol/L (135-145); Total Protein 6.4 g/dL (6.5-8.0)
[2021-12-31 20:00] VITALS: BP 126/75; PULSE 61; TEMP 36.9; O2SAT 96
--- NOTE | 2021-12-31 20:35 | ED_ITS ---
HPI - Recheck/Abnormal Lab/Rx General Chief Complaint: Recheck/Abnormal Lab/Rx Stated Complaint: Pancreatitis Time Seen by Provider: 12/31/21 19:01 Source: patient and old records reviewed Mode of arrival: ambulatory History of Present Illness HPI narrative: 56-year-old female with a past medical history of pancreatitis presents to the emergency department tonight referred by her primary care doctor for elevated laboratory studies. Specifically, the patient was seen earlier today and had a significantly elevated lipase. The patient has a history of pancreatitis, and was referred to the emergency department this evening. The patient states that the pain in her epigastrium is a burning, dull sensation and has been going on for approximately 2 weeks, however has improved over the past several days. She is able to eat and drink at home. The patient states that her pancreatitis is typically triggered by alcohol, but she has not had any alcohol since this instance of pancreatitis began Description of abnormal result: Lipase of 1136 from 9:45 a.m. Symptoms since prior visit: no new symptoms Context: called for abnormal lab result Associated symptoms: abdominal pain Related Data Home Medications Medication Instructions Recorded Confirmed albuterol sulfate 90 mcg/actuation 2 puff inhalation Q6H PRN 08/06/20 12/31/21 aerosol inhaler sertraline 50 mg tablet 50 mg PO QAM depressive disorder 12/31/21 12/31/21 trazodone 100 mg tablet 50 - 100 mg PO BEDTIME PRN insomnia 12/31/21 12/31/21 Previous Rx's Medication Instructions Recorded cane #1 ea 12/31/19 lorazepam 1 mg tablet 1 mg PO BID PRN anxiety #10 tabs 01/02/21 gabapentin 300 mg capsule 900 mg PO TID #270 caps 07/17/21 dicyclomine 20 mg tablet 20 mg PO QID #30 tabs 12/31/21 oxycodone-acetaminophen 5 mg-325 1 tab PO Q4H PRN pain, moderate to 12/31/21 mg tablet (Endocet) severe #10 tabs Allergies Allergy/AdvReac Type Severity Reaction Status Date / Time naproxen [From Naprosyn] AdvReac Severe Nausea Verified 12/31/21 08:59 Review of Systems Constitutional: Constitutional: Denies chills, Denies fever(s), Denies headache(s) and Denies weakness Eyes: Eyes: Denies blurry vision and Denies change in vision ENT: Reports system reviewed and no additional complaints, except as documented, Denies dizziness and Denies headache(s) Cardiovascular: Cardiovascular: Denies chest pain and Denies lightheadedness Respiratory: Respiratory: Denies cough and Denies wheezing Gastrointestinal: Gastrointestinal: Reports abdominal pain, Denies constipatio n, Denies diarrhea and Denies vomiting Genitourinary: Genitourinary: Denies dysuria and Denies urinary urgency Musculoskeletal: Musculoskeletal: Denies numbness and Denies tingling Neurologic: Denies Abnormal speech present, Denies dizziness, Denies headache(s), Denies numbness, Denies tingling and Denies weakness Allergic/Immunologic: Allergic/Immunologic: Denies wheezing [facility] Past Medical History Attestation statement: The following information was validated with the patient. [facility] Narrative: The patient has a past medical history of pancreatitis, smoking and alcohol abuse. Medical History Anxiety Back pain Cognitive impairment Cough History of panic attacks Hypomagnesemia Nausea Osteoarthritis of right hip Smoker Smoker Surgical History Delivery by section Family History Family History Father No problems noted. Mother No problems noted. Social History Social History (Updated 10/08/20 @ 14:45 by CARMINA Vo) Household Members: Family Housing: Apartment Are you a primary pediatric critical care nurse to a significant other at home: No Do you presently have visiting nurse or other home services: No Alcohol intake: never Patient Tobacco Use Status: Current everyday Tobacco user Tobacco use type: Cigarette Cigarette Packs Per Day: 0.5 Cigarettes Per Day: 8 Years Smoked: 43 e-Cigarette/Vaping Use: Never Used Second Hand Smoke Exposure: Yes Advance Directives: No Advance Directives Information Provided: Yes service: No Current occupational status: disabled Current occupation: Right Handed Physical Exam Vital Signs: Vital Signs: Last Vital Signs Temp 98.4 F 12/31/21 20:00 Pulse 60 12/31/21 22:05 Resp 16 12/31/21 22:05 BP 126/75 12/31/21 22:05 Pulse Ox 94 12/31/21 22:05 O2 Del Method 12/31/21 22:05 BMI result Body Mass Index 23.2 Vital signs are stable and normal Const: General: cooperative, healthy appearing and acute distress mild Nutritional Appearance: average body habitus Orientation/consciousness: patient oriented x3 HEENT: Head: Yes normocephalic and Yes atraumatic Ears: hearing grossly normal bilaterally and external ears normal General nose exam: Normal external nose present Face and sinus: Yes normal facial exam Mouth: Normal oral and palatal mucosa present Eyes: Eyelids: Yes eyelids normal Conjunctivae: conjunctivae normal Sclerae: sclerae normal Neck: Neck: Yes normal visual inspection and Yes full ROM Chest: Chest palpation & inspection: normal inspection of the chest Resp: Effort & Inspection: normal respiratory effort, no cough and no stridor Auscultation: clear to auscultation bilaterally Cardio: Rate: regular rate Rhythm: regular rhythm GI: Inspection: Yes normal to inspection, No Abdominal wall edema and Yes dis tended (minimal) Palpation (GI): Tenderness to palpation present (GI) in the epigastrum (mild) Percussion: Yes normal to percussion Auscultation: normal bowel sounds Back/Spine/Pelvis: Cervical Spine: normal cervical lordosis and cervical ROM normal Thoracic/Lumbar Spine: thoracic and lumbar spine normal to inspection Skin: General skin exam: no jaundice and no mottling Rashes: no rashes Neuro: General: patient oriented x3 and no focal motor deficits Cranial nerves: Yes CN's II-XII intact bilaterally Speech: No Abnormal speech present Gait exam (Neuro): Normal gait present Extrem: General: No cyanosis, No edema and No pedal edema Course Reevaluation(s) Reevaluation #1: Patient appears to be in minimal discomfort. Time: 21:30 Consultations Consultation #1: Dr. Velasquez from . Suggests discharge home if comfortable with pain medication and MRI/MRCP tomorrow. He will follow-up with the patient Time: 21:39 MDM - Recheck/Abnormal Lab/Rx MDM Narrative Medical decision making narrative: 56-year-old female with a past medical history of pancreatitis presents with abdominal pain. CT scan reveals a possible 1 cm stone in the pancreatic duct. The patient's lipase however is decreased from earlier today. The case was discussed with Dr. Velasquez from , and the patient will return tomorrow for MRI/MRCP to further delineate the extent of the pancreatitis and stone. The patient will be given a prescription for some pain medication to go home with, and she is comfortable in doing so. Medical Records Attestation: I reviewed the patient's medical records. Medical records narrative: Previous hospital visits as well as previous CT and MRI from July of 2020 were reviewed Lab Data Attestation: I reviewed the patient's lab results. Lab results narrative: CBC, chemistry and liver tests reviewed. Lipase noted to be 658 (approximately half what it was earlier today) Result diagrams: 12/31/21 19:11 12/31/21 19:11 Labs: Lab Results 12/31/21 12/31/21 12/31/21 Range/Units 19:11 19:11 21:51 WBC 5.1 (4.8-10.8) X10*3/uL RBC 3.69 L (4.20-5.50) X10*6/uL Hgb 11.7 L (12.0-16.0) g/dl Hct 36.1 L (37.0-47.0) % MCV 97.8 (80.0-98.0) fL MCH 31.7 (27.0-33.0) pg MCHC 32.4 (31.0-35.0) g/dl RDW 18.6 H (11.0-16.0) % Plt Count 270 (160-400) X10*3/uL MPV 9.8 (9.4-12.3) fL Immature Gran % (Auto) 0.6 H (0.0-0.4) % Neut % (Auto) 49.8 (45-73) % Lymph % (Auto) 28.1 (20-40) % [place] % (Auto) 13.8 H (2-11) % Eos % (Auto) 6.1 H (0-4) % Baso % (Auto) 1.6 (0-2) % Lymph # (Auto) 1.4 (1.2-4.9) X10*3/uL [place] # (Auto) 0.7 (0.1-1.2) X10*3/uL Eos # (Auto) 0.3 (0.0-0.4) X10*3/uL Baso # (Auto) 0.1 (0.0-0.2) X10*3/uL Abs Immat Gran (auto) 0.03 (0.00-0.03) X10*3/uL Absolute Neuts (auto) 2.5 (2.0-8.3) x10*3/uL Absolute Nucleated RBC 0.000 (0.0-0.012) X10*3/uL Nucleated RBC % (auto) 0.0 (0.0-0.2) /100WBC Sodium 138 (135-145) mmol/L Potassium 3.9 (3.3-5.1) mmol/L Chloride 97 (96-108) mmol/L Carbon Dioxide 29 (22-29) mmol/L Anion Gap 16 (12-20) BUN 6 L (9-16) mg/dL Creatinine 0.60 (0.5-1.4) mg/dL Estim Creat Clear Calc 87.6 Estimated GFR > 60 Random Glucose 85 (60-115) mg/dL Calcium 8.9 (8.4-10.2) mg/dL Total Bilirubin 0.6 (0.0-1.0) mg/dL AST 25 D (5-31) U/L ALT 18 (0-31) U/L Alkaline Phosphatase 87 D (39-117) U/L Total Protein 6.4 L D (6.5-8.0) g/dL Albumin 3.7 D (3.5-5.0) g/dL Lipase 658 H (8-78) U/L Urine Color Yellow Urine Appearance Clear Urine pH 7.0 (5.0-9.0) Ur Specific [place] <= 1.005 (1.005-1.025) Urine Protein Negative (Neg-Trace) mg/dL Urine Glucose (UA) Negative (Negative) mg/dL Urine Ketones Negative (Negative) mg/dL Urine Blood Negative (Negative) Urine Nitrite Negative (Negative) Ur Leukocyte Esterase Negative (Negative) Imaging Data CT scan - abdomen: Radiologist's impression: IMPRESSION: ? 1.? There is diffuse peripancreatic inflammatory fat stranding and trace free fluid compatible with acute interstitial pancreatitis. No loss of pancreatic enhancement to suggest pancreatic necrosis. 2.? Numerous pancreatic calcifications which could be seen in the setting of chronic pancreatitis. The pancreatic duct is dilated to 1.3 cm, new from prior. A 1 cm calcification in the pancreatic head may be intraluminal within the pancreatic duct. Few subcentimeter low-attenuation cystic lesions in the pancreas which appear contiguous with the pancreatic duct new from prior may reflect dilated sidebranches or tiny pseudocysts. Given the pancreatic duct dilatation consider GI referral for further evaluation and contrast enhanced MR/MRCP could be obtained for further evaluation. 3.? Hepatic steatosis decreased from prior. Discharge Plan Discharge Clinical Impression: Elevated lipase Acute pancreatitis Qualifiers: Pancreatitis type: alcohol induced Patient Disposition: Home, Self-Care Instructions: Pancreatitis (ED) Prescriptions: New oxycodone-acetaminophen [Endocet] 5-325 mg tablet 1 tab PO Q4H PRN (Reason: pain, moderate to severe) Qty: 10 0RF Rx Instructions: Partial Fill upon patient request. No Action lorazepam 1 mg tablet 1 mg PO BID PRN (Reason: anxiety) Qty: 10 0RF gabapentin 300 mg capsule 900 mg PO TID Qty: 270 3RF trazodone 100 mg tablet 50 - 100 mg PO BEDTIME PRN (Reason: insomnia) sertraline 50 mg tablet 50 mg PO QAM dicyclomine 20 mg tablet 20 mg PO QID Qty: 30 3RF (DME) cane Device See Rx Instructions .ROUTE .MEDSUPPLY Qty: 1 0RF Rx Instructions: As directed albuterol sulfate 90 mcg/actuation HFA aerosol inhaler 2 puff inhalation Q6H PRN
[2021-12-31] MEDS: iohexoL 350 MG/ML 100 ML INFUS..BTL IV (20:37)
[2021-12-31] MEDS: Morphine Sulfate 4 MG/ML CARTRIDGE IM (21:00)
[2021-12-31 22:01] LABS: Appearance Urine Clear; Color Urine Yellow; Glucose Urine UA Negative (Negative); Leukocyte Esterase Urine Negative (Negative); Nitrite Urine Negative (Negative); Specific Gravity - Urine <= 1.005 (1.005-1.025); Urine Blood Negative (Negative); Urine Ketones Negative (Negative); Urine Protein Negative (Neg-Trace)
[2021-12-31 22:05] VITALS: BP 126/75; PULSE 60; RESP 16; O2SAT 94
== END 2021-12-31 22:59 | disposition home or self-care (01) ==
PROVIDERS: Emergency Provider Emergency Medicine; PCP Internal Medicine
DX: K85.20 Alcohol induced acute pancreatitis without necrosis or infection (principal); K86.89 Other specified diseases of pancreas; Z79.899 Other long term (current) drug therapy
CPT/HCPCS: 36415; 74177; 80053; 81003; 83690; 85025; 96372; 99283; 99284; J2270; Q9967

== ENCOUNTER 2022-02-14 17:16 | Emergency (ER) | payer OTHER, SELFPAY ==
--- NOTE | 2022-02-14 17:22 | ED_ITS ---
HPI - General Adult General Chief complaint: ETOH/Substance Use Stated complaint: etoh Time Seen by Provider: 02/14/22 17:17 Source: patient and EMS Mode of arrival: EMS Limitations: other (Patient extremely intoxicated) History of Present Illness HPI narrative: This is a 56-year-old female history of COPD, alcohol abuse, cognitive impairment, anxiety presenting to the ED with alcohol intoxication. Patient tells me she had 4 alcoholic beverages, vodka prior to arrival unable to tell me how much she drank. She tells me she thinks a family member called 911. She tells me she wants to leave. Immediately upon getting here patient gets up and walks out of her room stating she would like to leave within over. She tells me she does not understand why she is here. Denies drugs, tobacco. Denies visual, auditory and tactile hallucinations. Denies suicidal and homicidal ideation. Denies any falls or trauma. No reported falls or trauma from bystanders when EMS got report. Patient not on blood thinners. Patient denies any medical complaints at this time. GCS of 15 NIH stroke scale 0. Related Data Home Medications Medication Instructions Recorded Confirmed albuterol sulfate 90 mcg/actuation 2 puff inhalation Q6H PRN 08/06/20 12/31/21 aerosol inhaler sertraline 50 mg tablet 50 mg PO QAM depressive disorder 12/31/21 12/31/21 trazodone 100 mg tablet 50 - 100 mg PO BEDTIME PRN insomnia 12/31/21 12/31/21 Previous Rx's Medication Instructions Recorded cane #1 ea 12/31/19 lorazepam 1 mg tablet 1 mg PO BID PRN anxiety #10 tabs 01/02/21 gabapentin 300 mg capsule 900 mg PO TID #270 caps 07/17/21 dicyclomine 20 mg tablet 20 mg PO QID #30 tabs 12/31/21 oxycodone-acetaminophen 5 mg-325 1 tab PO Q4H PRN pain, moderate to 12/31/21 mg tablet (Endocet) severe #10 tabs Allergies Allergy/AdvReac Type Severity Reaction Status Date / Time naproxen [From Naprosyn] AdvReac Severe Nausea Verified 12/31/21 08:59 Review of Systems Review of Systems: Constitutional : No Weight loss, No Fever, No Chills, No Fatigue, No Malaise ENT/Mouth : No sore throat, No Rhinorrhea Eyes: No Eye Pain, No Swelling, No Redness Cardiovascular : No Chest Pain, No SOB, No Dyspnea on Exertion, No Orthopnea, No Edema, No Palpitations Respiratory : No Cough, No Sputum, No Wheezing Gastrointestinal : No Nausea, No Vomiting, No Diarrhea, No Constipation, No abdominal Pain, No Hematochezia, No Melena Genitourinary : No Dysuria, No Urinary Frequency, No Hematuria, Musculoskeletal : No joint pain, No Myalgias, No Joint Swelling Skin : No Skin Lesions, No rash Neuro : No Weakness, No Numbness, No Dizziness, No Headache Psych : No Anxiety/Panic, No Depression All other systems reviewed and are negative Yes all other systems are reviewed and are negative [facility] Past Medical History Attestation statement: The following information was validated with the patient. Source: old records reviewed and nursing notes reviewed Medical History Anxiety Back pain Cognitive impairment Cough History of panic attacks Hypomagnesemia Nausea Osteoarthritis of right hip Smoker Smoker Surgical History Delivery by section Family History Family History Father No problems noted. Mother No problems noted. Social History Social History Household Members: Family Housing: Apartment Are you a primary physician primary care sports medicine to a significant other at home: No Do you presently have visiting nurse or other home services: No Alcohol intake: current Alcohol intake frequency: a few times a week Alcohol type: wine Patient Tobacco Use Status: Current everyday Tobacco user Tobacco use type: Cigarette Cigarette Packs Per Day: 0.5 Cigarettes Per Day: 8 Years Smoked: 43 Smoked in Last 30 Days: Yes e-Cigarette/Vaping Use: Never Used Second Hand Smoke Exposure: Yes Advance Directives: No Advance Directives Information Provided: No service: No Current occupational status: disabled Current occupation: Right Handed Physical Exam ED Vital Signs: Vital Signs - 24 hr 02/14/22 17:35 02/14/22 18:20 Temperature 97.6 F Pulse Rate 102 H 100 Respiratory Rate 16 16 Blood Pressure 139/102 H Pulse Oximetry 96 Oxygen Delivery Method Room Air BMI result Body Mass Index 29.2 Vital signs stable Appearance: Alert.? Oriented X3.? No acute distress.? Patient smells like alcohol Head: Normocephalic, atraumatic, no step-offs or deformities Eyes: Pupils equal, round and reactive to light.? ENT: Pharynx normal.? Neck: Normal inspection.? Neck supple.? CVS: Normal heart rate and rhythm.? Pulses normal.? Respiratory: No respiratory distress.? Breath sounds normal.? Abdomen: Soft and nontender.? Skin: Skin warm and dry.? Normal skin color.? Normal skin turgor.? Extremities: No lower extremity edema.? No calf ttp. 5/5 strength to bilateral upper and lower extremities Back: No midline tenderness, no C-spine tenderness, full range of motion, no CVA tenderness bilaterally Neuro: Oriented X 3.? No motor deficit.? No sensory deficit. CN 2-12 intact . Ambulating with steady gait normal coordination. Course Reevaluation(s) Reevaluation #1: Patient refusing labs, imaging, urine. She is alert and oriented x4 and able to make her own decisions. Clinically sober ambulating with a steady gait. Will find a safe ride home. She tells me she does not need all of these interventions and is refusing them. She verbalizes understanding of risks versus benefits. At this time patient will be leaving against medical advice. Medical Decision Making Medical Decision Making [facility] Narrative: 1720 56-year-old female presents with acute alcohol intoxication after drinking for vodka beverages unable to quantify how much. Denies SI and HI. No reported trauma. Physical examination patient smells like alcohol. Regular rate and rhythm. Lungs clear. Abdomen soft nontender nondistended. Alert and oriented x4. Ambulating with steady gait. GCS 15, NIH stroke scale 0. Likely acute alcohol intoxication. Unlikely metabolic disturbances. No reported trauma no need for scans at this time [place] head CT score negative. Plan at this time basic labs, urine, observation Critical Care Time Critical Care Time Critical Care Time: No Discharge Plan Discharge Clinical Impression: Alcoholic intoxication, Left against medical advice Patient Disposition: Left Against Medical Advice Instructions: Alcohol Intoxication (ED), Against Medical Advice (ED) Additional Instructions: Take your medications as prescribed. If you were prescribed antibiotics today, it is important that you take your medication to their entirety, do not skip any doses, do not finish them early. Follow-up with your primary care provider this week. Return to the emergency department with new or worsening symptoms. Such as fevers, chills, chest pain, shortness of breath, nausea, vomiting, dizziness, headache, vision changes, lethargy In case of emergency call 911 Your refuse laboratory studies, imaging, urine. If you change your mind please return. You verbalized understanding of risks of leaving against medical advice. Prescriptions: No Action lorazepam 1 mg tablet 1 mg PO BID PRN (Reason: anxiety) Qty: 10 0RF gabapentin 300 mg capsule 900 mg PO TID Qty: 270 3RF oxycodone-acetaminophen [Endocet] 5-325 mg tablet 1 tab PO Q4H PRN (Reason: pain, moderate to severe) Qty: 10 0RF Rx Instructions: Partial Fill upon patient request. trazodone 100 mg tablet 50 - 100 mg PO BEDTIME PRN (Reason: insomnia) sertraline 50 mg tablet 50 mg PO QAM dicyclomine 20 mg tablet 20 mg PO QID Qty: 30 3RF (DME) cane Device See Rx Instructions .ROUTE .MEDSUPPLY Qty: 1 0RF Rx Instructions: As directed albuterol sulfate 90 mcg/actuation HFA aerosol inhaler 2 puff inhalation Q6H PRN Referrals: Physician,None [Primary Care Provider] - 2 days Stand Alone Forms: Against Medical Advice Interventions: [place]-Suicide Risk Severity Scale Last Done: 02/14/22 18:20
[2022-02-14 17:35] VITALS: BP 139/102; PULSE 102; RESP 16; TEMP 36.4; O2SAT 96; BMI 29.2
--- NOTE | 2022-02-14 17:36 | MHC.RECOVSUP ---
Recovery Support note: Patient is a 56 year old Bahamian speaking female who presented to [facility] ED via EMS intoxicated. This ad copy writer met with patient to offer support. Patient reports she is not interested in discussing her drinking and that she does not want to cut back at this time. Patient perseverating on leaving and smoking a cigarette. Encouraged patient to inform staff if she would like to discuss her alcohol use and treatment options. Patient acknowledged. Recovery Support Team available as needed.
--- NOTE | 2022-02-14 18:19 | PC.NURSE ---
Pt ambulating around emergency department with steady gait. Adamant about finding ride and leaving.
[2022-02-14 18:20] VITALS: PULSE 100; RESP 16
== END 2022-02-14 18:55 | disposition left against medical advice (07) ==
PROVIDERS: Emergency Provider Emergency Medicine Emergency Medical Services
DX: F10.129 Alcohol abuse with intoxication, unspecified (principal); Y90.9 Presence of alcohol in blood, level not specified; F17.210 Nicotine dependence, cigarettes, uncomplicated; Z79.899 Other long term (current) drug therapy; Z71.6 Tobacco abuse counseling
CPT/HCPCS: 99281; 99284

== ENCOUNTER 2022-02-24 14:06 | Outpatient (REF) | payer OTHER, SELFPAY | END 2022-02-24 14:07 | disposition home or self-care (01) | LOC: HO.MAMMO 14:06 | PROVIDERS: PCP Internal Medicine; Visit Provider Internal Medicine | DX: Z12.31 Encounter for screening mammogram for malignant neoplasm of breast (principal) | CPT/HCPCS: 77063; 77067 ==

== ENCOUNTER 2022-04-30 08:09 | Outpatient (REF) | payer OTHER, SELFPAY ==
--- NOTE | ~2022-04-30 | US_ITS ---
EXAMINATION: US ABDOMEN COMPLETE CLINICAL INFORMATION: Unspecified abdominal pain. COMPARISON: CT abdomen and pelvis 12/31/2021. MRI abdomen 07/24/2020. TECHNIQUE: Real-time imaging of the abdominal viscera. FINDINGS: PANCREAS: Punctate calcifications seen throughout the pancreas consistent with chronic pancreatitis. Similar findings were seen on the prior CT scan. No solid pancreatic masses. Previously seen dilated pancreatic duct measuring 1.3 cm is not visualized on this exam. ABDOMINAL AORTA: The proximal, mid, and distal segments are normal in caliber. INFERIOR VENA CAVA: Visualized portions are normal. LIVER: The liver is normal in size. The liver contour is normal. There is diffuse increased liver parenchymal echogenicity, consistent with hepatic steatosis. No focal hepatic lesion. There is no intrahepatic biliary duct dilatation seen. GALLBLADDER: The gallbladder is physiologically distended without evidence of stones, polyps, wall thickening or pericholecystic fluid. Echogenic bile is present. COMMON BILE DUCT: Normal in caliber measuring 0.5 cm in diameter. There is a question of a stone in the distal common bile duct versus shadowing bowel RIGHT KIDNEY: Normal. No hydronephrosis. No renal calculi or focal parenchymal lesions. The kidney measures 9.8 cm in maximum dimension. LEFT KIDNEY: Benign 1.2 cm upper pole cyst is present which needs no additional imaging or follow-up. No hydronephrosis or renal calculi. The kidney measures 10.1 cm in maximum dimension. SPLEEN: Normal. The spleen measures 10.9 cm in maximum dimension. FREE FLUID: None. US/US abdomen complete IMPRESSION: 1. Hepatic steatosis. 2. Chronic pancreatitis. 3. Question of stone in the distal common bile duct.
== END 2022-04-30 08:10 | disposition home or self-care (01) ==
LOC: HO.US 08:09
PROVIDERS: Visit Provider Internal Medicine
DX: R10.9 Unspecified abdominal pain (principal)
CPT/HCPCS: 76700

== ENCOUNTER 2022-04-30 10:10 | Emergency (ER) | payer OTHER, SELFPAY ==
--- NOTE | ~2022-04-30 | XR_ITS ---
EXAMINATION: XR foot LT 2V, XR foot RT 2V CLINICAL INFORMATION: Reason for Exam foot pain/swelling COMPARISON: None. TECHNIQUE: AP, oblique and lateral views of each foot FINDINGS: There are lucencies traversing the LEFT great toe proximal phalanx, however these are only seen on the AP view, and there is no cortical disruption evident. Minimally displaced obliquely oriented fracture RIGHT fourth proximal phalangeal diaphysis. Minimally displaced fracture of the RIGHT third proximal phalangeal diaphysis. No dislocation. Mild degenerative changes of the bilateral first metatarsophalangeal joint. XR/XR foot RT 2V IMPRESSION: * Questionable comminuted nondisplaced fracture of the LEFT great toe proximal phalanx. Please correlate with point tenderness. * Minimally displaced obliquely oriented fracture of the RIGHT fourth proximal phalangeal diaphysis. * Minimally displaced fracture of the RIGHT third proximal phalangeal diaphysis.
--- NOTE | ~2022-04-30 | XR_ITS ---
EXAMINATION: XR foot LT 2V, XR foot RT 2V CLINICAL INFORMATION: Reason for Exam foot pain/swelling COMPARISON: None. TECHNIQUE: AP, oblique and lateral views of each foot FINDINGS: There are lucencies traversing the LEFT great toe proximal phalanx, however these are only seen on the AP view, and there is no cortical disruption evident. Minimally displaced obliquely oriented fracture RIGHT fourth proximal phalangeal diaphysis. Minimally displaced fracture of the RIGHT third proximal phalangeal diaphysis. No dislocation. Mild degenerative changes of the bilateral first metatarsophalangeal joint. XR/XR foot LT 2V IMPRESSION: * Questionable comminuted nondisplaced fracture of the LEFT great toe proximal phalanx. Please correlate with point tenderness. * Minimally displaced obliquely oriented fracture of the RIGHT fourth proximal phalangeal diaphysis. * Minimally displaced fracture of the RIGHT third proximal phalangeal diaphysis.
[2022-04-30 10:20] VITALS: BP 141/96; PULSE 83; RESP 16; TEMP 36.8; O2SAT 95; BMI 22.1
--- NOTE | 2022-04-30 11:09 | ED.GENADULT ---
HPI - General Adult General Chief complaint: General Medical Stated complaint: swollen/bruised feet Time Seen by Provider: 04/30/22 11:08 Source: patient Mode of arrival: ambulatory History of Present Illness HPI narrative: 56-year-old female with a past medical history of anxiety, hypomagnesemia, osteoarthritis, presenting to the ED complaining of bilateral foot pain, swelling, and ecchymosis x2 weeks. Also reports bruising to right arm. Denies known injury, trauma, fall. Reports feels like feet are broken although they are not. Denies numbness, tingling, fever, chills, SOB, pedal edema Onset (ago): week(s) Related Data Home Medications Medication Instructions Recorded Confirmed sertraline 50 mg tablet 50 mg PO QAM depressive disorder 12/31/21 04/02/22 trazodone 100 mg tablet 50 - 100 mg PO BEDTIME PRN insomnia 12/31/21 04/02/22 Previous Rx's Medication Instructions Recorded cane #1 ea 12/31/19 lorazepam 1 mg tablet 1 mg PO BID PRN anxiety #10 tabs 01/02/21 gabapentin 300 mg capsule 900 mg PO TID #270 caps 07/17/21 dicyclomine 20 mg tablet 20 mg PO QID #30 tabs 12/31/21 albuterol sulfate 90 mcg/actuation 2 puff inhalation Q6H PRN 04/02/22 aerosol inhaler bronchospasm 30 days #8.5 grams oxycodone-acetaminophen 5 mg-325 1 tab PO Q4H PRN pain, moderate to 04/02/22 mg tablet (Endocet) severe #10 tabs Allergies Allergy/AdvReac Type Severity Reaction Status Date / Time naproxen [From Naprosyn] AdvReac Severe Nausea Verified 04/30/22 10:19 Review of Systems Review of Systems: Constitutional: No Fever, No Chills ENT/Mouth: No Ear Pain, No Nasal Congestion, No sore throat, No Rhinorrhea, No Swallowing Difficulty Cardiovascular: No Chest Pain, No SOB Respiratory: No Cough, No Sputum Gastrointestinal: No Nausea, No Vomiting, No Diarrhea, No Constipation, No Abdominal pain Genitourinary: No Dysuria, No Urinary Frequency, No Hematuria, No Urinary Incontinence/retention, No Flank Pain Musculoskeletal: + joint pain, No Myalgias, + Joint Swelling Skin: + Skin Lesions, No rash Neuro: No Weakness, No Numbness, No Paresthesias Yes all other systems are reviewed and are negative Constitutional: Constitutional: Reports as per [facility] Past Medical History Attestation statement: The following information was validated with the patient. Medical History Anxiety Back pain Cognitive impairment Cough History of panic attacks Hypomagnesemia Nausea Osteoarthritis of right hip Smoker Smoker Surgical History Delivery by section Family History Family History Father No problems noted. Mother No problems noted. Social History Social History Household Members: Family Housing: Apartment Are you a primary respite care provider to a significant other at home: No Do you presently have visiting nurse or other home services: No Alcohol intake: current Alcohol intake frequency: a few times a week Alcohol type: wine Patient Tobacco Use Status: Current everyday Tobacco user Tobacco use type: Cigarette Cigarette Packs Per Day: 0.5 Cigarettes Per Day: 8 Years Smoked: 43 e-Cigarette/Vaping Use: Never Used Second Hand Smoke Exposure: Yes Advance Directives: No Advance Directives Information Provided: No service: No Current occupational status: disabled Current occupation: Right Handed Physical Exam ED Vital Signs: Vital Signs - 24 hr 04/30/22 10:20 Temperature 98.2 F Pulse Rate 83 Respiratory Rate 16 Blood Pressure 141/96 H Pulse Oximetry 95 Oxygen Delivery Method Room Air BMI result Body Mass Index 22.1 Const General: cooperative, healthy appearing and no acute distress Orientation/consciousness: patient oriented x3 Limitations: no limitations HENMT Head: Yes normal to inspection and Yes atraumatic Ears: hearing grossly normal bilaterally General nose exam: Normal external nose present Face and sinus: Yes normal facial exam Eyes General: appearance normal, both eyes and all related structures EOM: EOMs intact bilaterally Neck Neck: Yes normal visual inspection and Yes no meningeal signs Resp Effort & Inspection: normal respiratory effort and no respiratory distress Auscultation: clear to auscultation bilaterally Cardio Rate: regular rate Heart sounds: S1 normal heart sound present and S2 normal heart sound present Skin Other: + small healing ecchymosis to right forearm Rashes: no rashes Wounds: no wounds Neuro General: patient oriented x3, gait normal, tone normal, moves all extremities, no meningeal signs and no focal motor deficits Gait exam (Neuro): Normal gait present Extrem Other: Bilateral feet with slight swelling greatest to great toes and distal metatarsal areas. Light ecchymosis noted with mild erythema to right foot. Mildly tender to palpation. NV intact. ROM intact. No pedal edema. No petechiae. No warmth or crepitus Course Course Course Narrative: -1318--mild leukopenia. H/H at baseline, mild thrombocytopenia (however patient has been lower in the past) XR foot LT 2V/XR foot RT 2V IMPRESSION: *? Questionable comminuted nondisplaced fracture of the LEFT great toe proximal phalanx. Please correlate with point tenderness. *? Minimally displaced obliquely oriented fracture of the RIGHT fourth proximal phalangeal diaphysis. *? Minimally displaced fracture of the RIGHT third proximal phalangeal diaphysis. >> patient linda-taped and supplied with hard-soled shoes -1339--mild hypokalemia to 3.1 >> 60 mEq p.o. repletion ordered. Acute on chronic elevated AST. ALT mildly elevated. Labs otherwise reassuring. Magnesium added. Results discussed with patient including worrisome signs and symptoms and strict return precautions, and when to return to the emergency department. They verbalized understanding and feel safe for discharge at this time. Medications Administered Discontinued Medications Generic Name Dose Route Start Last Admin Trade Name Freq PRN Reason Stop Dose Admin Acetaminophen/Codeine Phosphate 1 tab 04/30/22 13:25 04/30/22 13:38 Acetaminophen With Codeine # 3 Tablet PO 04/30/22 13:26 1 tab ONCE ONE Administration Ketorolac Tromethamine 30 mg 04/30/22 11:13 04/30/22 11:37 Ketorolac Tromethamine 30 Mg/Ml Vial IM 04/30/22 11:14 30 mg ONCE ONE Administration Potassium Chloride 60 meq 04/30/22 13:39 04/30/22 13:49 Potassium Chloride Er 20 Meq Tab.Er.Prt PO 04/30/22 13:40 60 meq ONCE ONE Administration Medical Decision Making Medical Decision Making MDM Narrative: 56-year-old female with a past medical history of anxiety, hypomagnesemia, osteoarthritis, presenting to the ED complaining of bilateral foot pain, swelling, and ecchymosis x2 weeks. On exam vital signs stable, NAD, nontoxic appearing, physical exam as above. Concern for occult fracture vs injury vs ?clotting disorder vs gout or osteoarthritis flare. Lower suspicion for DVT or cellulitis Plan: Labs, x-ray, pain management Please refer to course for remaining clinical decision making, interpretation of labs/imaging results, and discussions with consultants and/or family members. Differential Diagnosis Differential Diagnoses: The differential diagnosis associated with the presentation includes as above Lab Data 04/30/22 11:35 04/30/22 11:35 Labs: Lab Results 04/30/22 04/30/22 04/30/22 Range/Units 11:35 11:35 11:35 WBC 3.7 L (4.8-10.8) X10*3/uL RBC 3.37 L (4.20-5.50) X10*6/uL Hgb 11.2 L (12.0-16.0) g/dl Hct 33.9 L (37.0-47.0) % MCV 100.6 H (80.0-98.0) fL MCH 33.2 H (27.0-33.0) pg MCHC 33.0 (31.0-35.0) g/dl RDW 20.1 H (11.0-16.0) % Plt Count 132 L D (160-400) X10*3/uL MPV 10.1 (9.4-12.3) fL Immature Gran % (Auto) 0.5 H (0.0-0.4) % Neut % (Auto) 47.8 (45-73) % Lymph % (Auto) 31.5 (20-40) % [place] % (Auto) 11.6 H (2-11) % Eos % (Auto) 6.7 H (0-4) % Baso % (Auto) 1.9 (0-2) % Lymph # (Auto) 1.2 (1.2-4.9) X10*3/uL [place] # (Auto) 0.4 (0.1-1.2) X10*3/uL Eos # (Auto) 0.3 (0.0-0.4) X10*3/uL Baso # (Auto) 0.1 (0.0-0.2) X10*3/uL Abs Immat Gran (auto) 0.02 (0.00-0.03) X10*3/uL Absolute Neuts (auto) 1.8 L (2.0-8.3) x10*3/uL Absolute Nucleated RBC 0.000 (0.0-0.012) X10*3/uL Nucleated RBC % (auto) 0.0 (0.0-0.2) /100WBC ESR (0-20) MM/HR PT 12.2 (10.0-13.1) SEC INR 1.1 (0.9-1.1) Sodium 143 (135-145) mmol/L Potassium 3.1 L D (3.3-5.1) mmol/L Chloride 105 (96-108) mmol/L Carbon Dioxide 29 (22-29) mmol/L Anion Gap 12 (12-20) BUN 5 L (9-16) mg/dL Creatinine 0.69 (0.5-1.4) mg/dL Estim Creat Clear Calc 76.2 Estimated GFR > 60 Random Glucose 117 H (60-115) mg/dL Calcium 8.6 (8.4-10.2) mg/dL Total Bilirubin 0.5 (0.0-1.0) mg/dL Direct Bilirubin 0.2 (0.0-0.5) mg/dL AST 86 H (5-31) U/L ALT 62 H (0-31) U/L Alkaline Phosphatase 83 (39-117) U/L C-Reactive Protein 0.78 H (< or = 0.50) mg/dL Total Protein 5.9 L (6.5-8.0) g/dL Albumin 3.5 (3.5-5.0) g/dL 04/30/22 Range/Units 11:35 WBC (4.8-10.8) X10*3/uL RBC (4.20-5.50) X10*6/uL Hgb (12.0-16.0) g/dl Hct (37.0-47.0) % MCV (80.0-98.0) fL MCH (27.0-33.0) pg MCHC (31.0-35.0) g/dl RDW (11.0-16.0) % Plt Count (160-400) X10*3/uL MPV (9.4-12.3) fL Immature Gran % (Auto) (0.0-0.4) % Neut % (Auto) (45-73) % Lymph % (Auto) (20-40) % [place] % (Auto) (2-11) % Eos % (Auto) (0-4) % Baso % (Auto) (0-2) % Lymph # (Auto) (1.2-4.9) X10*3/uL [place] # (Auto) (0.1-1.2) X10*3/uL Eos # (Auto) (0.0-0.4) X10*3/uL Baso # (Auto) (0.0-0.2) X10*3/uL Abs Immat Gran (auto) (0.00-0.03) X10*3/uL Absolute Neuts (auto) (2.0-8.3) x10*3/uL Absolute Nucleated RBC (0.0-0.012) X10*3/uL Nucleated RBC % (auto) (0.0-0.2) /100WBC ESR 14 (0-20) MM/HR PT (10.0-13.1) SEC INR (0.9-1.1) Sodium (135-145) mmol/L Potassium (3.3-5.1) mmol/L Chloride (96-108) mmol/L Carbon Dioxide (22-29) mmol/L Anion Gap (12-20) BUN (9-16) mg/dL Creatinine (0.5-1.4) mg/dL Estim Creat Clear Calc Estimated GFR Random Glucose (60-115) mg/dL Calcium (8.4-10.2) mg/dL Total Bilirubin (0.0-1.0) mg/dL Direct Bilirubin (0.0-0.5) mg/dL AST (5-31) U/L ALT (0-31) U/L Alkaline Phosphatase (39-117) U/L C-Reactive Protein (< or = 0.50) mg/dL Total Protein (6.5-8.0) g/dL Albumin (3.5-5.0) g/dL Radiology Impression Discussion of test interpretation with radiology: I have reviewed the radiologist's reading. External Record Review External record reviewed: Office record, Outpatient record and Prior outpatient radiology Prescription Management I considered prescription management with: Pain Medication Discharge Plan Discharge Clinical Impression: Fracture of great toe, Closed fracture of fourth toe of right foot, Closed fracture of third toe of right foot Patient Disposition: Home, Self-Care Instructions: Toe Fracture (ED) Additional Instructions: You have a comminuted nondisplaced fracture left great toe, a minimally displaced fracture of her right 4th toe and a minimally displaced fracture of her right 3rd toe. LINDA TAPE TOES TO ADJOINING TOE FOR SUPPORT. WEAR HARD-SOLED POSTOP SHOE Ice and elevate Take Tylenol and ibuprofen for pain/swelling. Follow-up with orthopedics in 1 week If symptoms persist or worsen/become unbearable, area begins to look infected return to the ED Your potassium was mildly low and repleted in the emergency department. Please have this repeated in 1-2 weeks by her primary care doctor Prescriptions: No Action lorazepam 1 mg tablet 1 mg PO BID PRN (Reason: anxiety) Qty: 10 0RF gabapentin 300 mg capsule 900 mg PO TID Qty: 270 3RF trazodone 100 mg tablet 50 - 100 mg PO BEDTIME PRN (Reason: insomnia) sertraline 50 mg tablet 50 mg PO QAM dicyclomine 20 mg tablet 20 mg PO QID Qty: 30 3RF oxycodone-acetaminophen [Endocet] 5-325 mg tablet 1 tab PO Q4H PRN (Reason: pain, moderate to severe) Qty: 10 0RF Rx Instructions: Partial Fill upon patient request. albuterol sulfate 90 mcg/actuation HFA aerosol inhaler 2 puff inhalation Q6H PRN (Reason: bronchospasm) 30 Days Qty: 8.5 7RF (DME) cane Device See Rx Instructions .ROUTE .MEDSUPPLY Qty: 1 0RF Rx Instructions: As directed Referrals: [facility] [place] Orthopedic Surgeons [Provider Group] - 1 week
[2022-04-30] MEDS: Ketorolac Tromethamine 30 MG/ML VIAL IM (11:37)
[2022-04-30 11:41] LABS: MANUAL DIFF FLAG NO
[2022-04-30 11:46] LABS: INTERNATIONAL NORM RATIO 1.1 (0.9-1.1); Prothrombin Time 12.2 SEC (10.0-13.1)
[2022-04-30 11:55] LABS: Basophils Absolute Auto 0.1 X10*3/uL (0.0-0.2); Basophils Percent Auto 1.9 % (0-2); Eosinophils Absolute Auto 0.3 X10*3/uL (0.0-0.4); Eosinophils Percent Auto 6.7 % (0-4); Hematocrit 33.9 % (37.0-47.0); Hemoglobin 11.2 g/dl (12.0-16.0); Imm Gran Abs Auto 0.02 X10*3/uL (0.00-0.03); Imm Gran Pct Auto 0.5 % (0.0-0.4); Lymphocytes Absolute Auto 1.2 X10*3/uL (1.2-4.9); Lymphocytes Percent Auto 31.5 % (20-40); Mean Corpuscular Hemoglobin 33.2 pg (27.0-33.0); Mean Corpuscular Volume 100.6 fL (80.0-98.0); Mean Platelet Volume 10.1 fL (9.4-12.3); Monocytes Absolute Auto 0.4 X10*3/uL (0.1-1.2); Monocytes Percent Auto 11.6 % (2-11); Neutrophils Absolute Auto 1.8 x10*3/uL (2.0-8.3); Neutrophils Percent Auto 47.8 % (45-73); Platelet Count 132 X10*3/uL (160-400); Red Blood Count 3.37 X10*6/uL (4.20-5.50); Red Cell Distribution Width 20.1 % (11.0-16.0); White Blood Count 3.7 X10*3/uL (4.8-10.8)
[2022-04-30 12:30] LABS: Erythrocyte Sedimentation Rate 14 MM/HR (0-20)
[2022-04-30 13:34] LABS: Alanine Aminotransferase 62 U/L (0-31); Albumin Level 3.5 g/dL (3.5-5.0); Alkaline Phosphatase 83 U/L (39-117); Anion Gap 12 (12-20); Aspartate Amino Transferase 86 U/L (5-31); Bilirubin Direct 0.2 mg/dL (0.0-0.5); Bilirubin Total 0.5 mg/dL (0.0-1.0); Blood Urea Nitrogen 5 mg/dL (9-16); C Reactive Protein 0.78 mg/dL (< or = 0.50); Calcium 8.6 mg/dL (8.4-10.2); Carbon Dioxide 29 mmol/L (22-29); Chloride 105 mmol/L (96-108); Creatinine Clr Calc Pharmacy 76.2; Estimated Glomerular Filt Rate > 60; Glucose Random 117 mg/dL (60-115); Potassium 3.1 mmol/L (3.3-5.1); Sodium 143 mmol/L (135-145); Total Protein 5.9 g/dL (6.5-8.0)
[2022-04-30] MEDS: Potassium Chloride ER 20 MEQ TAB.ER.PRT 60 MEQ PO (13:49)
[2022-04-30 15:13] LABS: Magnesium 1.7 mg/dL (1.6-2.6)
== END 2022-04-30 14:47 | disposition home or self-care (01) ==
PROVIDERS: Physician Assistant; Emergency Provider Student in an Organized Health Care Education/Training Program; PCP Internal Medicine
DX: R60.0 Localized edema (principal); S92.401A Displaced unspecified fracture of right great toe, initial encounter for closed fracture; S92.501A Displaced unspecified fracture of right lesser toe(s), initial encounter for closed fracture; M79.671 Pain in right foot; F17.210 Nicotine dependence, cigarettes, uncomplicated; W01.0XXA Fall on same level from slipping, tripping and stumbling without subsequent striking against object, initial encounter; Y93.9 Activity, unspecified; Y92.9 Unspecified place or not applicable; Y99.9 Unspecified external cause status; Z79.899 Other long term (current) drug therapy; Z71.6 Tobacco abuse counseling
CPT/HCPCS: 36415; 73620; 80048; 80076; 83735; 85025; 85610; 85652; 86140; 96372; 99283; 99284; J1885

== ENCOUNTER 2022-05-21 11:45 | Outpatient (REF) | payer OTHER, SELFPAY ==
--- NOTE | ~2022-05-21 | XR_ITS ---
EXAMINATION: XR FOOT, RIGHT XR FOOT, LEFT CLINICAL HISTORY: Right foot 5th metatarsal fracture. Left foot pain. COMPARISON: Right and left foot radiographs dated 04/30/2022. TECHNIQUE: AP, oblique, and lateral views of the right and left foot. FINDINGS: Right Foot: Chronic, nondisplaced fractures of the 2nd, 3rd, and 4th toes in anatomic alignment with interval new bone/callus formation. No new fracture or dislocation. Mild joint space narrowing at the 1st interphalangeal joint. No concerning lytic or blastic osseous lesion. Tiny dorsal calcaneal enthesophyte. Left Foot: Redemonstration of a 1st proximal phalangeal fracture in unchanged anatomic alignment with minimal new bone/callus formation. No new fracture or dislocation. No concerning lytic or blastic osseous lesion. No abnormal soft tissue calcification. XR/XR foot RT min 3V IMPRESSION: RIGHT FOOT: Chronic, nondisplaced fractures of the 2nd, 3rd and 4th toes in anatomic alignment with interval new bone/callus formation. No new fracture or dislocation. LEFT FOOT: First proximal phalangeal fracture in unchanged anatomic alignment with minimal new bone/callus formation.
--- NOTE | ~2022-05-21 | XR_ITS ---
EXAMINATION: XR FOOT, RIGHT XR FOOT, LEFT CLINICAL HISTORY: Right foot 5th metatarsal fracture. Left foot pain. COMPARISON: Right and left foot radiographs dated 04/30/2022. TECHNIQUE: AP, oblique, and lateral views of the right and left foot. FINDINGS: Right Foot: Chronic, nondisplaced fractures of the 2nd, 3rd, and 4th toes in anatomic alignment with interval new bone/callus formation. No new fracture or dislocation. Mild joint space narrowing at the 1st interphalangeal joint. No concerning lytic or blastic osseous lesion. Tiny dorsal calcaneal enthesophyte. Left Foot: Redemonstration of a 1st proximal phalangeal fracture in unchanged anatomic alignment with minimal new bone/callus formation. No new fracture or dislocation. No concerning lytic or blastic osseous lesion. No abnormal soft tissue calcification. XR/XR foot LT min 3V IMPRESSION: RIGHT FOOT: Chronic, nondisplaced fractures of the 2nd, 3rd and 4th toes in anatomic alignment with interval new bone/callus formation. No new fracture or dislocation. LEFT FOOT: First proximal phalangeal fracture in unchanged anatomic alignment with minimal new bone/callus formation.
== END 2022-05-21 11:46 | disposition home or self-care (01) ==
LOC: HO.HOSX 11:45
PROVIDERS: Visit Provider Physician Assistant
DX: S92.351A Displaced fracture of fifth metatarsal bone, right foot, initial encounter for closed fracture (principal); M79.672 Pain in left foot
CPT/HCPCS: 73630; 99202

== ENCOUNTER 2022-05-21 14:14 | Outpatient (REF) | payer OTHER, SELFPAY ==
[2022-05-21 16:17] LABS: Anion Gap 16 (12-20); Blood Urea Nitrogen 5 mg/dL (9-16); Calcium 9.2 mg/dL (8.4-10.2); Carbon Dioxide 28 mmol/L (22-29); Chloride 100 mmol/L (96-108); Estimated Glomerular Filt Rate > 60; Glucose Random 114 mg/dL (60-115); Potassium 3.6 mmol/L (3.3-5.1); Sodium 140 mmol/L (135-145)
== END 2022-05-21 14:15 | disposition home or self-care (01) ==
LOC: HO.LAB 14:14
PROVIDERS: PCP Internal Medicine; Visit Provider Nurse Practitioner Family
DX: E87.6 Hypokalemia (principal)
CPT/HCPCS: 36415; 80048